=== PATIENT | female | born 1970 ===

== ENCOUNTER 2020-03-14 13:48 | Outpatient (REF) | payer OTHER, SELFPAY ==
--- NOTE | 2020-03-14 13:51 | XR_ITS ---
EXAMINATION: XR KNEE STANDING BILATERAL XR KNEE RIGHT XR KNEE LEFT CLINICAL INFORMATION: Knee pain COMPARISON: No recent comparison for review TECHNIQUE: AP standing view both knees Lateral and sunrise views of right knee Lateral sunrise views of left knee FINDINGS: Right knee: Small joint effusion is present. The sunrise view shows mild lateral patellar subluxation and prominent marginal osteophytes of the patellofemoral compartment. The medial and lateral tibiofemoral joint spaces are maintained. Minimal osteophyte formation of the medial compartment and moderate osteophyte formation of the lateral tibiofemoral compartment. Left knee: Trace amount of fluid is present in the suprapatellar bursa. [place] view shows mild lateral patellar subluxation. There is moderate loss of the lateral patellofemoral joint space with subarticular sclerosis and osteophytosis. Marginal osteophytes are present at medial and lateral tibiofemoral compartments. The medial and lateral joint spaces are maintained. XR/XR knee standing BI IMPRESSION: * Mild lateral patellar subluxation is observed on each sunrise view. * The tricompartmental osteoarthritis of the left knee is worst at the patellofemoral compartment. * There is tricompartmental osteoarthritis of the right knee, as well (mild to moderate in degree at the patellofemoral and lateral tibiofemoral compartments).
--- NOTE | 2020-03-14 13:51 | XR_ITS ---
EXAMINATION: XR KNEE STANDING BILATERAL XR KNEE RIGHT XR KNEE LEFT CLINICAL INFORMATION: Knee pain COMPARISON: No recent comparison for review TECHNIQUE: AP standing view both knees Lateral and sunrise views of right knee Lateral sunrise views of left knee FINDINGS: Right knee: Small joint effusion is present. The sunrise view shows mild lateral patellar subluxation and prominent marginal osteophytes of the patellofemoral compartment. The medial and lateral tibiofemoral joint spaces are maintained. Minimal osteophyte formation of the medial compartment and moderate osteophyte formation of the lateral tibiofemoral compartment. Left knee: Trace amount of fluid is present in the suprapatellar bursa. [place] view shows mild lateral patellar subluxation. There is moderate loss of the lateral patellofemoral joint space with subarticular sclerosis and osteophytosis. Marginal osteophytes are present at medial and lateral tibiofemoral compartments. The medial and lateral joint spaces are maintained. XR/XR knee LT 2V IMPRESSION: * Mild lateral patellar subluxation is observed on each sunrise view. * The tricompartmental osteoarthritis of the left knee is worst at the patellofemoral compartment. * There is tricompartmental osteoarthritis of the right knee, as well (mild to moderate in degree at the patellofemoral and lateral tibiofemoral compartments).
--- NOTE | 2020-03-14 13:51 | XR_ITS ---
EXAMINATION: XR KNEE STANDING BILATERAL XR KNEE RIGHT XR KNEE LEFT CLINICAL INFORMATION: Knee pain COMPARISON: No recent comparison for review TECHNIQUE: AP standing view both knees Lateral and sunrise views of right knee Lateral sunrise views of left knee FINDINGS: Right knee: Small joint effusion is present. The sunrise view shows mild lateral patellar subluxation and prominent marginal osteophytes of the patellofemoral compartment. The medial and lateral tibiofemoral joint spaces are maintained. Minimal osteophyte formation of the medial compartment and moderate osteophyte formation of the lateral tibiofemoral compartment. Left knee: Trace amount of fluid is present in the suprapatellar bursa. [place] view shows mild lateral patellar subluxation. There is moderate loss of the lateral patellofemoral joint space with subarticular sclerosis and osteophytosis. Marginal osteophytes are present at medial and lateral tibiofemoral compartments. The medial and lateral joint spaces are maintained. XR/XR knee RT 2V IMPRESSION: * Mild lateral patellar subluxation is observed on each sunrise view. * The tricompartmental osteoarthritis of the left knee is worst at the patellofemoral compartment. * There is tricompartmental osteoarthritis of the right knee, as well (mild to moderate in degree at the patellofemoral and lateral tibiofemoral compartments).
== END 2020-03-14 13:49 | disposition home or self-care (01) ==
LOC: HO.HOSX 13:48
PROVIDERS: PCP Internal Medicine; Referring Provider Internal Medicine; Visit Provider Orthopaedic Surgery
DX: M25.562 Pain in left knee (principal); M25.561 Pain in right knee
CPT/HCPCS: 73560; 73565; 99202

== ENCOUNTER 2020-05-23 11:07 | Outpatient (REF) | payer OTHER, SELFPAY ==
[2020-05-23 11:31] LABS: MANUAL DIFF FLAG NO
[2020-05-23 11:37] LABS: Basophils Percent Auto 0.4 % (0-2); Eosinophils Absolute Auto 0.2 X10*3/uL (0.0-0.4); Eosinophils Percent Auto 2.2 % (0-4); Hematocrit 33.4 % (37-47); Hemoglobin 9.9 g/dl (12.0-16.0); Imm Gran Abs Auto 0.03 X10*3/uL (0.00-0.03); Imm Gran Pct Auto 0.4 % (0.0-0.4); Lymphocytes Absolute Auto 1.2 X10*3/uL (1.2-4.9); Lymphocytes Percent Auto 16.6 % (20-40); Mean Corpuscular HGB Conc 29.6 g/dl (31.0-35.0); Mean Corpuscular Hemoglobin 25.2 pg (27.0-33.0); Mean Platelet Volume 9.5 fL (9.4-12.3); Monocytes Absolute Auto 0.5 X10*3/uL (0.1-1.2); Monocytes Percent Auto 6.6 % (2-11); Neutrophils Absolute Auto 5.4 X10*3/uL (2.0-8.3); Neutrophils Percent Auto 73.8 % (45-73); Platelet Count 279 X10*3/uL (160-400); Red Blood Count 3.93 X10*6/uL (4.20-5.50); Red Cell Distribution Width 13.6 % (11.0-16.0); White Blood Count 7.3 X10*3/uL (4.8-10.8)
[2020-05-23 12:06] LABS: Alanine Aminotransferase 7 U/L (0-31); Albumin Level 3.5 g/dL (3.5-5.0); Alkaline Phosphatase 87 U/L (39-117); Anion Gap 13 (12-20); Aspartate Amino Transferase 10 U/L (5-31); Bilirubin Total 0.9 mg/dL (0.0-1.0); Blood Urea Nitrogen 15 mg/dL (9-16); C Reactive Protein 8.82 mg/dL (< or = 0.50); Calcium 8.9 mg/dL (8.4-10.2); Carbon Dioxide 31 mmol/L (22-29); Chloride 97 mmol/L (96-108); Estimated Glomerular Filt Rate > 60; Glucose Random 101 mg/dL (60-115); Potassium 4.1 mmol/L (3.3-5.1); Sodium 137 mmol/L (135-145); Total Protein 8.1 g/dL (6.5-8.0)
[2020-05-23 13:15] LABS: Erythrocyte Sedimentation Rate 98 MM/HR (0-20)
== END 2020-05-23 11:08 | disposition home or self-care (01) ==
LOC: HO.LAB 11:07
PROVIDERS: PCP Internal Medicine; Visit Provider Student in an Organized Health Care Education/Training Program
DX: M19.90 Unspecified osteoarthritis, unspecified site (principal)
CPT/HCPCS: 36415; 80053; 85025; 85652; 86140

== ENCOUNTER 2020-06-06 11:31 | Outpatient (REF) | payer OTHER, SELFPAY ==
[2020-06-06 13:13] LABS: MANUAL DIFF FLAG NO
[2020-06-06 13:19] LABS: Basophils Percent Auto 0.4 % (0-2); Eosinophils Absolute Auto 0.2 X10*3/uL (0.0-0.4); Eosinophils Percent Auto 3.1 % (0-4); Hematocrit 33.4 % (37-47); Hemoglobin 9.8 g/dl (12.0-16.0); Imm Gran Abs Auto 0.03 X10*3/uL (0.00-0.03); Imm Gran Pct Auto 0.4 % (0.0-0.4); Lymphocytes Absolute Auto 1.4 X10*3/uL (1.2-4.9); Lymphocytes Percent Auto 19.5 % (20-40); Mean Corpuscular HGB Conc 29.3 g/dl (31.0-35.0); Mean Corpuscular Hemoglobin 24.6 pg (27.0-33.0); Mean Corpuscular Volume 83.9 fL (80-98); Mean Platelet Volume 9.6 fL (9.4-12.3); Monocytes Absolute Auto 0.5 X10*3/uL (0.1-1.2); Monocytes Percent Auto 6.7 % (2-11); Neutrophils Percent Auto 69.9 % (45-73); Platelet Count 315 X10*3/uL (160-400); Red Blood Count 3.98 X10*6/uL (4.20-5.50); Red Cell Distribution Width 13.7 % (11.0-16.0); White Blood Count 7.2 X10*3/uL (4.8-10.8)
[2020-06-06 13:43] LABS: Alanine Aminotransferase 6 U/L (0-31); Albumin Level 3.6 g/dL (3.5-5.0); Alkaline Phosphatase 86 U/L (39-117); Anion Gap 13 (12-20); Aspartate Amino Transferase 10 U/L (5-31); Bilirubin Total 1.1 mg/dL (0.0-1.0); Blood Urea Nitrogen 15 mg/dL (9-16); Calcium 8.9 mg/dL (8.4-10.2); Carbon Dioxide 31 mmol/L (22-29); Chloride 99 mmol/L (96-108); Cholesterol 170 mg/dL; Estimated Glomerular Filt Rate > 60; Glucose Random 108 mg/dL (60-115); HDL Cholesterol 39 mg/dL; LDL Cholesterol Calculated 111 mg/dl; Potassium 4.1 mmol/L (3.3-5.1); Sodium 139 mmol/L (135-145); Total Protein 8.2 g/dL (6.5-8.0); Triglycerides 102 mg/dL
[2020-06-06 14:13] LABS: Reflex LDLD? No
[2020-06-06 14:20] LABS: Erythrocyte Sedimentation Rate 96 MM/HR (0-20)
== END 2020-06-06 11:32 | disposition home or self-care (01) ==
LOC: HO.LAB 11:31
PROVIDERS: PCP Internal Medicine; Visit Provider Student in an Organized Health Care Education/Training Program
DX: M19.90 Unspecified osteoarthritis, unspecified site (principal); M17.0 Bilateral primary osteoarthritis of knee; Z79.899 Other long term (current) drug therapy
CPT/HCPCS: 36415; 80053; 80061; 85025; 85652; 86140; 99212

== ENCOUNTER → 2020-06-27 13:40 | Outpatient (BNVA) | payer OTHER, SELFPAY | PROVIDERS: PCP Internal Medicine; Visit Provider Orthopaedic Surgery | DX: M19.90 Unspecified osteoarthritis, unspecified site (principal); Z79.899 Other long term (current) drug therapy | CPT/HCPCS: 99212 ==

== ENCOUNTER → 2020-08-05 13:40 | Outpatient (BNVA) | payer OTHER, SELFPAY | PROVIDERS: Visit Provider Physician Assistant | DX: M19.90 Unspecified osteoarthritis, unspecified site (principal); M17.0 Bilateral primary osteoarthritis of knee | CPT/HCPCS: 99212 ==

== ENCOUNTER 2020-08-07 07:40 | Day surgery (SDC) | payer OTHER, SELFPAY ==
--- NOTE | 2020-08-06 08:52 | P.CONAN_ITS ---
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) Inflammatory arthritis (Acute) Morbid obesity (Acute) Osteoarthritis of knees, bilateral (Acute) Past Medical History Medical History Abdominal hernia Arthritis of both knees Asthma Blind left eye Chronic pain Degenerative disc disease Depression Diabetes mellitus Fibromyalgia Glaucoma Headache disorder History of anemia History of hypothyroidism Inflammatory arthritis Morbid obesity HUSSEIN (obstructive sleep apnea) Family History Family History Father CAD (coronary artery disease) Mother Cancer of pancreas Obesity Brother CAD (coronary artery disease) Obesity Surgical History Surgical History History of section History of hernia surgery Social History Social History Alcohol intake: never Smoking Status: Never smoker Use of substances other than those prescribed or required for medical reasons: No Are you DNR?: No Advance Directives: No Advance Directives Information Provided: Yes Current occupational status: unemployed Current occupation: right handed Meds Allergies Allergy/AdvReac Type Severity Reaction Status Date / Time No Known Allergies Allergy Verified 08/07/20 07:59 [No Known Allergies*] Home Medications Medication Instructions Recorded Confirmed Last Taken Type albuterol sulfate 2 mg/5 mL oral 2 mg PO TID 03/14/20 03/15/20 Unknown History syrup aspirin 81 mg tablet,delayed 81 mg PO DAILY 03/14/20 03/15/20 08/06/20 History release atorvastatin 40 mg tablet 40 mg PO DAILY 03/14/20 03/15/20 Unknown History brimonidine 0.2 % eye drops 1 drp OPHTHALMIC (EYE) TID 03/14/20 03/15/20 Unknown History budesonide-formoterol HFA 160 2 puff INHALATION BID 03/14/20 03/15/20 Unknown History mcg-4.5 mcg/actuation aerosol inhaler cholecalciferol (vitamin D3) 50 50 mcg PO DAILY 03/14/20 03/15/20 Unknown History mcg (2,000 unit) capsule folic acid 1 mg tablet 1 mg PO DAILY 03/14/20 03/15/20 Unknown History gabapentin 800 mg tablet 800 mg PO TID 03/14/20 03/15/20 Unknown History hydrocortisone 1 % topical cream 1 appl TOPICAL TID PRN 03/14/20 03/15/20 Unknown History insulin glargine 100 unit/mL 10 unit SUBCUT BID 03/14/20 03/15/20 Unknown History subcutaneous solution liraglutide 0.6 mg/0.1 mL (18 mg/3 1.2 mg SUBCUT DAILY 03/14/20 03/15/20 Unknown History mL) subcutaneous pen injector metformin 1,000 mg tablet 1,000 mg PO BID 03/14/20 03/15/20 Unknown History montelukast 10 mg tablet 10 mg PO DAILY 03/14/20 03/15/20 Unknown History polyethylene glycol 3350 17 17 g PO DAILY 03/14/20 03/15/20 Unknown History gram/dose oral powder tizanidine 4 mg capsule 4 mg PO BID PRN 03/14/20 03/15/20 Unknown History oxycodone 1 tab PO TID PRN 08/07/20 08/07/20 08/07/20 History 0600 Exam Exam Date and Time: August 06, 2020 0852 Pertinent Lab Results Pertinent Lab Results: Laboratory Tests 06/06/20 06/06/20 12:43 12:43 WBC 7.2 Hgb 9.8 L Hct 33.4 L Plt Count 315 Sodium 139 Potassium 4.1 Chloride 99 Carbon Dioxide 31 H BUN 15 Creatinine 0.72 Assessment and Plan Assessment Anesthesia Assessment: Chart Reviewed Documented by User: Pascale Pak 08/07/20 09:03 [facility] Past Medical History Medical History Abdominal hernia Arthritis of both knees Asthma Blind left eye Chronic pain Degenerative disc disease Depression Diabetes mellitus Fibromyalgia Glaucoma Headache disorder History of anemia History of hypothyroidism Inflammatory arthritis Morbid obesity HUSSEIN (obstructive sleep apnea) Family History Family History Father CAD (coronary artery disease) Mother Cancer of pancreas Obesity Brother CAD (coronary artery disease) Obesity Surgical History Surgical History History of section History of hernia surgery Social History Social History Alcohol intake: never Smoking Status: Never smoker Use of substances other than those prescribed or required for medical reasons: No Are you DNR?: No Advance Directives: No Advance Directives Information Provided: Yes Current occupational status: unemployed Current occupation: right handed Meds Allergies Allergy/AdvReac Type Severity Reaction Status Date / Time No Known Allergies Allergy Verified 08/07/20 07:59 [No Known Allergies*] Home Medications Medication Instructions Recorded Confirmed Last Taken Type albuterol sulfate 2 mg/5 mL oral 2 mg PO TID 03/14/20 03/15/20 Unknown History syrup aspirin 81 mg tablet,delayed 81 mg PO DAILY 03/14/20 03/15/20 08/06/20 History release atorvastatin 40 mg tablet 40 mg PO DAILY 03/14/20 03/15/20 Unknown History brimonidine 0.2 % eye drops 1 drp OPHTHALMIC (EYE) TID 03/14/20 03/15/20 Unknown History budesonide-formoterol HFA 160 2 puff INHALATION BID 03/14/20 03/15/20 Unknown History mcg-4.5 mcg/actuation aerosol inhaler cholecalciferol (vitamin D3) 50 50 mcg PO DAILY 03/14/20 03/15/20 Unknown History mcg (2,000 unit) capsule folic acid 1 mg tablet 1 mg PO DAILY 03/14/20 03/15/20 Unknown History gabapentin 800 mg tablet 800 mg PO TID 03/14/20 03/15/20 Unknown History hydrocortisone 1 % topical cream 1 appl TOPICAL TID PRN 03/14/20 03/15/20 Unknown History insulin glargine 100 unit/mL 10 unit SUBCUT BID 03/14/20 03/15/20 Unknown History subcutaneous solution liraglutide 0.6 mg/0.1 mL (18 mg/3 1.2 mg SUBCUT DAILY 03/14/20 03/15/20 Unknown History mL) subcutaneous pen injector metformin 1,000 mg tablet 1,000 mg PO BID 03/14/20 03/15/20 Unknown History montelukast 10 mg tablet 10 mg PO DAILY 03/14/20 03/15/20 Unknown History polyethylene glycol 3350 17 17 g PO DAILY 03/14/20 03/15/20 Unknown History gram/dose oral powder tizanidine 4 mg capsule 4 mg PO BID PRN 03/14/20 03/15/20 Unknown History oxycodone 1 tab PO TID PRN 08/07/20 08/07/20 08/07/20 History 0600 Exam Airway Mallampati Class: II TM Dist: >3cm Neck ROM: Full Loose/Missing/Broken Teeth: No Heart: RRR Lungs: CTA Assessment and Plan Assessment Anesthesia Assessment: Anesthesia Plan Discussed and Chart Reviewed Final Anesthetic Review NPO: Yes ASA Class: III Final Preanesthetic Review: Meds/Allgs Chart Reviewed, Consent Obtained/Reviewed and Anes Risks/Benef Reviewed Patient Risk: Intermediate Procedure Risk: Low Anesthetic Plan Anesthetic Plan: GA Disposition: Standard PACU
[2020-08-07] VITALS (9 sets, daily range): BP systolic 126–154; BP diastolic 70–79; PULSE 72–94; RESP 16–20; TEMP 36.2–36.8; O2SAT 96–99; BMI 47.4
[2020-08-07 07:57] LABS: Glucose, Whole Blood 80 mg/dL (60-115)
[2020-08-07] MEDS: Lactated Ringers 1,000 ML 100 ML IVCONT (08:36)
--- NOTE | 2020-08-07 08:41 | MHC.SHP ---
Pre-Procedural Eval Section A The patient is an INPATIENT: No Changes since office visit: Yes Patient answered all questions; No Cold of Flu in the past 2 weeks, No New Medical Problems and No Changes in Medication The History & Physical has been completed within 30 days and I have reviewed it.: Yes Section B Chief Complaint: osteoarthritis Allergies: Allergies Allergy/AdvReac Type Severity Reaction Status Date / Time No Known Allergies Allergy Verified 08/07/20 07:59 [No Known Allergies*] Plan I have reviewed the history and physical and performed a pertinent physical examination on my patient. No changes have occurred unless specified.
--- NOTE | 2020-08-07 10:20 | PM.OP ---
Brief Operative Note Date of Service: 08/07/20 Pre-op diagnosis: right knee pain Post-op diagnosis: same Procedure: right knee synovial biopsy Surgeon: Walter Mcdonald MD Anesthesia: GETA and local Was an Import Export Manager used for this Procedure?: No Estimated blood loss (mL): 5 Tourniquet time (min): 25 IV fluids (mL): 500 Pathology: other Condition: stable Disposition: PACU
--- NOTE | 2020-08-07 10:23 | W.PM.OPN ---
Operative Note Operative Note Date of Service: 08/07/20 Narrative: Pre-op diagnosis: right knee pain Post-op diagnosis: same Procedure: right knee synovial biopsy Surgeon: Walter Mcdonald MD Anesthesia: GETA and local Was an Senior Loan Officer used for this Procedure?: No Estimated blood loss (mL): 5 Tourniquet time (min): 25 IV fluids (mL): 500 Pathology: other Condition: stable Disposition: PACU Procedure in detail:Patient was brought to the operating room and placed supine on the surgical table. She was prepped and draped in standard sterile fashion and a time out was called to identify proper site, proper procedure and IV antibiotics per weight were administered. I began by aspirating synovial fluid via a lateral approach. This produced about 6-8 ml serosanguinous fluid. I then placed my blunt trochar into the PF compartment and insufflated the knee with saline. There was abundant scar tissue in the supra-patellar compartment. I established a medial parapatellar portal and used a shave to remove the tissue obstyurcting my view. I then biopsied the synovium with a biter. There was no synovitis appreciable. I then examined the and medial compartment. She has G 4 changes of the lateral compartment. Otherwise the medial and anterior compartment cartilage surfaces were intact and without damage. Synovium was sent to pathology and synovial fluid sent for culture and cell count. All instrumentation was removed and patient was placed in sterile dressing after the wouns were closed with skin glue. 25 ml of 1/4% marcaine with epi was injected around the portals.
[2020-08-07 10:31] LABS: MN% 19.7 %; PMN% 80.3 %; RBC Synovial Fluid 0.344 X10*6/uL; WBC Synovial Fluid 5.332 X10*3/uL
[2020-08-07] MEDS: Acetaminophen 325 MG TABLET 650 MG PO (10:38)
[2020-08-07] MEDS: oxyCODONE HCl Immed Release 5 MG TABLET 10 MG PO (10:39)
[2020-08-07 11:28] LABS: BF Shift QC OK YES; Eosinophils Synovial Fluid 2 %; Lymphocytes Synovial Fluid 10 %; Monocytes Synovial Fluid 9 %; Neutrophils Synovial Fluid 79 %
== END 2020-08-07 12:25 | disposition home or self-care (01) ==
PROVIDERS: PCP Internal Medicine; Visit Provider Orthopaedic Surgery
PROC: (CPT 29870; principal; 2020-08-07 09:20)
DX: M17.0 Bilateral primary osteoarthritis of knee (principal); M25.561 Pain in right knee; M65.861 Other synovitis and tenosynovitis, right lower leg; M79.7 Fibromyalgia; G89.29 Other chronic pain; J45.909 Unspecified asthma, uncomplicated; E11.9 Type 2 diabetes mellitus without complications; Z79.4 Long term (current) use of insulin; E66.01 Morbid (severe) obesity due to excess calories; Z68.43 Body mass index [BMI] 50.0-59.9, adult; Z79.899 Other long term (current) drug therapy; Z79.82 Long term (current) use of aspirin
CPT/HCPCS: 29870; 82947; 87071; 87073; 87205; 88304; 88305; 89051; J0171; J1100; J2250; J2405; J3010

== ENCOUNTER → 2020-08-23 12:58 | Outpatient (BNVA) | payer OTHER, SELFPAY | PROVIDERS: PCP Internal Medicine; Visit Provider Physician Assistant | DX: Z47.89 Encounter for other orthopedic aftercare (principal); Z98.890 Other specified postprocedural states | CPT/HCPCS: 99212 ==

== ENCOUNTER 2020-09-03 13:13 | Outpatient (REF) | payer OTHER, SELFPAY ==
[2020-09-03 14:22] LABS: MANUAL DIFF FLAG NO
[2020-09-03 14:28] LABS: Basophils Percent Auto 0.4 % (0-2); Eosinophils Absolute Auto 0.2 X10*3/uL (0.0-0.4); Eosinophils Percent Auto 2.2 % (0-4); Hematocrit 34.8 % (37-47); Hemoglobin 10.1 g/dl (12.0-16.0); Imm Gran Abs Auto 0.03 X10*3/uL (0.00-0.03); Imm Gran Pct Auto 0.4 % (0.0-0.4); Lymphocytes Absolute Auto 1.5 X10*3/uL (1.2-4.9); Lymphocytes Percent Auto 20.3 % (20-40); Mean Corpuscular Hemoglobin 23.7 pg (27.0-33.0); Mean Corpuscular Volume 81.5 fL (80-98); Mean Platelet Volume 9.6 fL (9.4-12.3); Monocytes Absolute Auto 0.5 X10*3/uL (0.1-1.2); Monocytes Percent Auto 7.2 % (2-11); Neutrophils Absolute Auto 5.1 X10*3/uL (2.0-8.3); Neutrophils Percent Auto 69.5 % (45-73); Platelet Count 376 X10*3/uL (160-400); Red Blood Count 4.27 X10*6/uL (4.20-5.50); Red Cell Distribution Width 14.6 % (11.0-16.0); White Blood Count 7.4 X10*3/uL (4.8-10.8)
[2020-09-03 14:53] LABS: Alanine Aminotransferase 7 U/L (0-31); Albumin Level 3.6 g/dL (3.5-5.0); Alkaline Phosphatase 91 U/L (39-117); Anion Gap 15 (12-20); Aspartate Amino Transferase 11 U/L (5-31); Bilirubin Total 1.4 mg/dL (0.0-1.0); Blood Urea Nitrogen 19 mg/dL (9-16); C Reactive Protein 11.96 mg/dL (< or = 0.50); Carbon Dioxide 33 mmol/L (22-29); Chloride 94 mmol/L (96-108); Estimated Glomerular Filt Rate > 60; Glucose Random 134 mg/dL (60-115); Potassium 4.3 mmol/L (3.3-5.1); Sodium 138 mmol/L (135-145); Total Protein 8.8 g/dL (6.5-8.0)
[2020-09-03 15:16] LABS: Erythrocyte Sedimentation Rate 89 MM/HR (0-20)
== END 2020-09-03 13:14 | disposition home or self-care (01) ==
LOC: HO.LAB 13:13
PROVIDERS: PCP Internal Medicine; Visit Provider Student in an Organized Health Care Education/Training Program
DX: M19.90 Unspecified osteoarthritis, unspecified site (principal)
CPT/HCPCS: 36415; 80053; 85025; 85652; 86140

== ENCOUNTER → 2020-09-11 10:31 | Outpatient (BNVA) | payer OTHER, SELFPAY | PROVIDERS: Visit Provider Student in an Organized Health Care Education/Training Program | DX: M06.00 Rheumatoid arthritis without rheumatoid factor, unspecified site (principal); M17.0 Bilateral primary osteoarthritis of knee; Z79.899 Other long term (current) drug therapy | CPT/HCPCS: 99212 ==

== ENCOUNTER → 2020-11-05 12:35 | Outpatient (BNVA) | payer OTHER, SELFPAY | PROVIDERS: PCP Internal Medicine; Visit Provider Student in an Organized Health Care Education/Training Program | DX: M06.00 Rheumatoid arthritis without rheumatoid factor, unspecified site (principal) ==

== ENCOUNTER 2020-11-27 10:54 | Outpatient (REF) | payer OTHER, SELFPAY ==
[2020-11-27 11:29] LABS: MANUAL DIFF FLAG NO
[2020-11-27 11:38] LABS: Basophils Percent Auto 0.6 % (0-2); Eosinophils Absolute Auto 0.1 X10*3/uL (0.0-0.4); Eosinophils Percent Auto 2.3 % (0-4); Hematocrit 38.6 % (37-47); Hemoglobin 11.7 g/dl (12.0-16.0); Imm Gran Abs Auto 0.01 X10*3/uL (0.00-0.03); Imm Gran Pct Auto 0.2 % (0.0-0.4); Lymphocytes Percent Auto 21.8 % (20-40); Mean Corpuscular HGB Conc 30.3 g/dl (31.0-35.0); Mean Corpuscular Volume 88.9 fL (80-98); Mean Platelet Volume 9.5 fL (9.4-12.3); Monocytes Absolute Auto 0.4 X10*3/uL (0.1-1.2); Monocytes Percent Auto 7.9 % (2-11); Neutrophils Absolute Auto 3.2 X10*3/uL (2.0-8.3); Neutrophils Percent Auto 67.2 % (45-73); Platelet Count 180 X10*3/uL (160-400); Red Blood Count 4.34 X10*6/uL (4.20-5.50); Red Cell Distribution Width 15.9 % (11.0-16.0); White Blood Count 4.8 X10*3/uL (4.8-10.8)
[2020-11-27 12:28] LABS: Alanine Aminotransferase 16 U/L (0-31); Albumin Level 3.9 g/dL (3.5-5.0); Alkaline Phosphatase 64 U/L (39-117); Anion Gap 12 (12-20); Aspartate Amino Transferase 17 U/L (5-31); Bilirubin Total 1.6 mg/dL (0.0-1.0); Blood Urea Nitrogen 17 mg/dL (9-16); C Reactive Protein 0.12 mg/dL (< or = 0.50); Calcium 9.1 mg/dL (8.4-10.2); Carbon Dioxide 28 mmol/L (22-29); Chloride 105 mmol/L (96-108); Cholesterol 207 mg/dL; Estimated Glomerular Filt Rate > 60; Glucose Random 134 mg/dL (60-115); HDL Cholesterol 87 mg/dL; LDL Cholesterol Calculated 106 mg/dl; Potassium 3.9 mmol/L (3.3-5.1); Sodium 141 mmol/L (135-145); Total Protein 7.1 g/dL (6.5-8.0); Triglycerides 71 mg/dL
[2020-11-27 12:31] LABS: Erythrocyte Sedimentation Rate 7 MM/HR (0-20)
[2020-11-27 13:22] LABS: Reflex LDLD? No
== END 2020-11-27 10:55 | disposition home or self-care (01) ==
LOC: HO.LAB 10:54
PROVIDERS: PCP Internal Medicine; Visit Provider Student in an Organized Health Care Education/Training Program
DX: M06.00 Rheumatoid arthritis without rheumatoid factor, unspecified site (principal)
CPT/HCPCS: 36415; 80053; 80061; 85025; 85652; 86140

== ENCOUNTER → 2020-12-03 08:26 | Outpatient (BNVA) | payer OTHER, SELFPAY | PROVIDERS: PCP Internal Medicine; Visit Provider Student in an Organized Health Care Education/Training Program ==

== ENCOUNTER 2021-01-17 11:07 | Outpatient (REF) | payer OTHER, SELFPAY ==
[2021-01-17 11:23] LABS: MANUAL DIFF FLAG NO
[2021-01-17 11:50] LABS: Basophils Percent Auto 0.5 % (0-2); Eosinophils Absolute Auto 0.1 X10*3/uL (0.0-0.4); Eosinophils Percent Auto 2.2 % (0-4); Hematocrit 37.9 % (37-47); Hemoglobin 11.8 g/dl (12.0-16.0); Imm Gran Abs Auto 0.01 X10*3/uL (0.00-0.03); Imm Gran Pct Auto 0.2 % (0.0-0.4); Lymphocytes Absolute Auto 1.2 X10*3/uL (1.2-4.9); Lymphocytes Percent Auto 29.9 % (20-40); Mean Corpuscular HGB Conc 31.1 g/dl (31.0-35.0); Mean Corpuscular Hemoglobin 27.8 pg (27.0-33.0); Mean Corpuscular Volume 89.4 fL (80-98); Mean Platelet Volume 9.8 fL (9.4-12.3); Monocytes Absolute Auto 0.4 X10*3/uL (0.1-1.2); Neutrophils Absolute Auto 2.4 X10*3/uL (2.0-8.3); Neutrophils Percent Auto 58.2 % (45-73); Platelet Count 158 X10*3/uL (160-400); Red Blood Count 4.24 X10*6/uL (4.20-5.50); Red Cell Distribution Width 12.7 % (11.0-16.0); White Blood Count 4.1 X10*3/uL (4.8-10.8)
[2021-01-17 12:23] LABS: Alanine Aminotransferase 19 U/L (0-31); Albumin Level 4.1 g/dL (3.5-5.0); Alkaline Phosphatase 67 U/L (39-117); Anion Gap 11 (12-20); Aspartate Amino Transferase 15 U/L (5-31); Bilirubin Total 1.7 mg/dL (0.0-1.0); Blood Urea Nitrogen 17 mg/dL (9-16); C Reactive Protein 0.08 mg/dL (< or = 0.50); Calcium 9.2 mg/dL (8.4-10.2); Carbon Dioxide 29 mmol/L (22-29); Chloride 105 mmol/L (96-108); Cholesterol 205 mg/dL; Estimated Glomerular Filt Rate > 60; Glucose Random 106 mg/dL (60-115); HDL Cholesterol 72 mg/dL; LDL Cholesterol Calculated 118 mg/dl; Potassium 4.4 mmol/L (3.3-5.1); Sodium 141 mmol/L (135-145); Total Protein 7.2 g/dL (6.5-8.0); Triglycerides 77 mg/dL
[2021-01-17 12:36] LABS: Erythrocyte Sedimentation Rate 5 MM/HR (0-20)
[2021-01-17 12:48] LABS: Reflex LDLD? No
== END 2021-01-17 11:08 | disposition home or self-care (01) ==
LOC: HO.LAB 11:07
PROVIDERS: PCP Internal Medicine; Visit Provider Student in an Organized Health Care Education/Training Program
DX: M06.00 Rheumatoid arthritis without rheumatoid factor, unspecified site (principal)
CPT/HCPCS: 36415; 80053; 80061; 85025; 85652; 86140

== ENCOUNTER → 2021-02-21 12:49 | Outpatient (BNVA) | payer OTHER, SELFPAY | PROVIDERS: PCP Internal Medicine; Visit Provider Nurse Practitioner Family | DX: M06.00 Rheumatoid arthritis without rheumatoid factor, unspecified site (principal); M17.0 Bilateral primary osteoarthritis of knee; Z79.899 Other long term (current) drug therapy | CPT/HCPCS: 99212 ==

== ENCOUNTER 2021-06-20 08:31 | Outpatient (REF) | payer OTHER, SELFPAY | END 2021-06-20 08:32 | disposition home or self-care (01) | LOC: HO.LAB 08:31 | PROVIDERS: PCP Internal Medicine; Visit Provider Nurse Practitioner Family | DX: M06.00 Rheumatoid arthritis without rheumatoid factor, unspecified site (principal); M17.0 Bilateral primary osteoarthritis of knee; Z79.4 Long term (current) use of insulin; Z79.899 Other long term (current) drug therapy | CPT/HCPCS: 36415; 80053; 85025; 86140; 99212 ==

== ENCOUNTER 2021-06-24 08:20 | Outpatient (REF) | payer OTHER, SELFPAY ==
[2021-06-24 08:31] LABS: MANUAL DIFF FLAG NO
[2021-06-24 08:51] LABS: Basophils Percent Auto 0.5 % (0-2); Eosinophils Absolute Auto 0.1 X10*3/uL (0.0-0.4); Eosinophils Percent Auto 3.1 % (0-4); Hematocrit 38.9 % (37.0-47.0); Imm Gran Abs Auto 0.02 X10*3/uL (0.00-0.03); Imm Gran Pct Auto 0.5 % (0.0-0.4); Lymphocytes Absolute Auto 1.4 X10*3/uL (1.2-4.9); Lymphocytes Percent Auto 32.9 % (20-40); Mean Corpuscular HGB Conc 30.8 g/dl (31.0-35.0); Mean Corpuscular Hemoglobin 28.6 pg (27.0-33.0); Mean Corpuscular Volume 92.6 fL (80.0-98.0); Mean Platelet Volume 9.7 fL (9.4-12.3); Monocytes Absolute Auto 0.4 X10*3/uL (0.1-1.2); Monocytes Percent Auto 8.7 % (2-11); Neutrophils Absolute Auto 2.3 x10*3/uL (2.0-8.3); Neutrophils Percent Auto 54.3 % (45-73); Platelet Count 129 X10*3/uL (160-400); Red Cell Distribution Width 12.3 % (11.0-16.0); White Blood Count 4.3 X10*3/uL (4.8-10.8)
[2021-06-24 09:24] LABS: Alanine Aminotransferase 50 U/L (0-31); Albumin Level 3.9 g/dL (3.5-5.0); Alkaline Phosphatase 74 U/L (39-117); Anion Gap 13 (12-20); Aspartate Amino Transferase 35 U/L (5-31); Bilirubin Total 2.2 mg/dL (0.0-1.0); Blood Urea Nitrogen 13 mg/dL (9-16); Calcium 9.1 mg/dL (8.4-10.2); Carbon Dioxide 27 mmol/L (22-29); Chloride 104 mmol/L (96-108); Estimated Glomerular Filt Rate > 60; Glucose Random 265 mg/dL (60-115); Sodium 140 mmol/L (135-145); Total Protein 6.9 g/dL (6.5-8.0)
== END 2021-06-24 08:21 | disposition home or self-care (01) ==
LOC: HO.LAB 08:20
PROVIDERS: Visit Provider Nurse Practitioner Family
DX: M06.00 Rheumatoid arthritis without rheumatoid factor, unspecified site (principal); M19.90 Unspecified osteoarthritis, unspecified site
CPT/HCPCS: 36415; 80053; 85025; 86140

== ENCOUNTER 2021-08-25 09:37 | Outpatient (REF) | payer MEDICARE, MEDICAID, SELFPAY ==
[2021-08-25 10:24] LABS: MANUAL DIFF FLAG NO
[2021-08-25 10:58] LABS: Basophils Percent Auto 0.3 % (0-2); Eosinophils Absolute Auto 0.1 X10*3/uL (0.0-0.4); Eosinophils Percent Auto 1.3 % (0-4); Hematocrit 36.4 % (37.0-47.0); Hemoglobin 11.4 g/dl (12.0-16.0); Imm Gran Abs Auto 0.03 X10*3/uL (0.00-0.03); Imm Gran Pct Auto 0.4 % (0.0-0.4); Lymphocytes Percent Auto 13.5 % (20-40); Mean Corpuscular HGB Conc 31.3 g/dl (31.0-35.0); Mean Corpuscular Hemoglobin 28.6 pg (27.0-33.0); Mean Corpuscular Volume 91.5 fL (80.0-98.0); Mean Platelet Volume 9.6 fL (9.4-12.3); Monocytes Absolute Auto 0.5 X10*3/uL (0.1-1.2); Monocytes Percent Auto 7.2 % (2-11); Neutrophils Absolute Auto 5.8 x10*3/uL (2.0-8.3); Neutrophils Percent Auto 77.3 % (45-73); Platelet Count 196 X10*3/uL (160-400); Red Blood Count 3.98 X10*6/uL (4.20-5.50); Red Cell Distribution Width 12.2 % (11.0-16.0); White Blood Count 7.5 X10*3/uL (4.8-10.8)
[2021-08-25 11:42] LABS: Erythrocyte Sedimentation Rate 36 MM/HR (0-20)
[2021-08-25 11:57] LABS: Alanine Aminotransferase 38 U/L (0-31); Albumin Level 3.7 g/dL (3.5-5.0); Alkaline Phosphatase 84 U/L (39-117); Anion Gap 13 (12-20); Aspartate Amino Transferase 37 U/L (5-31); Bilirubin Total 1.4 mg/dL (0.0-1.0); Blood Urea Nitrogen 13 mg/dL (9-16); C Reactive Protein 1.35 mg/dL (< or = 0.50); Calcium 8.7 mg/dL (8.4-10.2); Carbon Dioxide 27 mmol/L (22-29); Chloride 103 mmol/L (96-108); Estimated Glomerular Filt Rate > 60; Glucose Random 203 mg/dL (60-115); Potassium 3.5 mmol/L (3.3-5.1); Sodium 139 mmol/L (135-145); Total Protein 7.2 g/dL (6.5-8.0)
== END 2021-08-25 09:38 | disposition home or self-care (01) ==
LOC: HO.LAB 09:37
PROVIDERS: PCP Internal Medicine; Visit Provider Nurse Practitioner Family
DX: M06.00 Rheumatoid arthritis without rheumatoid factor, unspecified site (principal)
CPT/HCPCS: 36415; 80053; 85025; 85652; 86140

== ENCOUNTER 2021-10-28 10:05 | Outpatient (REF) | payer MEDICARE, MEDICAID, SELFPAY ==
[2021-10-28 11:05] LABS: Alanine Aminotransferase 27 U/L (0-31); Aspartate Amino Transferase 37 U/L (5-31)
== END 2021-10-28 10:06 | disposition home or self-care (01) ==
LOC: HO.10HDL 10:05
PROVIDERS: Visit Provider Nurse Practitioner Family
DX: M06.00 Rheumatoid arthritis without rheumatoid factor, unspecified site (principal); M17.0 Bilateral primary osteoarthritis of knee; E66.01 Morbid (severe) obesity due to excess calories; E11.40 Type 2 diabetes mellitus with diabetic neuropathy, unspecified; Z79.899 Other long term (current) drug therapy
CPT/HCPCS: 36415; 84450; 84460; 99212

== ENCOUNTER → 2022-02-17 08:51 | Outpatient (BNVA) | payer MEDICARE, MEDICAID, SELFPAY | PROVIDERS: PCP Internal Medicine; Visit Provider Internal Medicine Rheumatology | DX: M06.00 Rheumatoid arthritis without rheumatoid factor, unspecified site (principal); M17.0 Bilateral primary osteoarthritis of knee; R53.1 Weakness; E11.40 Type 2 diabetes mellitus with diabetic neuropathy, unspecified; R74.01 Elevation of levels of liver transaminase levels; Z79.899 Other long term (current) drug therapy | CPT/HCPCS: 99212 ==

== ENCOUNTER → 2022-06-22 09:18 | Outpatient (BNVA) | payer MEDICARE, MEDICAID, SELFPAY | PROVIDERS: PCP Internal Medicine; Visit Provider Internal Medicine Rheumatology | DX: M06.00 Rheumatoid arthritis without rheumatoid factor, unspecified site (principal); M17.0 Bilateral primary osteoarthritis of knee; R74.01 Elevation of levels of liver transaminase levels; E11.40 Type 2 diabetes mellitus with diabetic neuropathy, unspecified; Z79.899 Other long term (current) drug therapy | CPT/HCPCS: 99212 ==

== ENCOUNTER 2022-06-29 07:11 | Outpatient (REF) | payer MEDICARE, MEDICAID, SELFPAY ==
[2022-06-29 07:26] LABS: MANUAL DIFF FLAG NO
[2022-06-29 08:02] LABS: Basophils Percent Auto 0.4 % (0-2); Eosinophils Absolute Auto 0.1 X10*3/uL (0.0-0.4); Eosinophils Percent Auto 1.3 % (0-4); Hematocrit 36.3 % (37.0-47.0); Hemoglobin 11.1 g/dl (12.0-16.0); Imm Gran Abs Auto 0.02 X10*3/uL (0.00-0.03); Imm Gran Pct Auto 0.3 % (0.0-0.4); Lymphocytes Absolute Auto 1.4 X10*3/uL (1.2-4.9); Lymphocytes Percent Auto 17.8 % (20-40); Mean Corpuscular HGB Conc 30.6 g/dl (31.0-35.0); Mean Corpuscular Hemoglobin 27.8 pg (27.0-33.0); Mean Platelet Volume 9.5 fL (9.4-12.3); Monocytes Absolute Auto 0.4 X10*3/uL (0.1-1.2); Monocytes Percent Auto 5.4 % (2-11); Neutrophils Absolute Auto 5.9 x10*3/uL (2.0-8.3); Neutrophils Percent Auto 74.8 % (45-73); Platelet Count 231 X10*3/uL (160-400); Red Blood Count 3.99 X10*6/uL (4.20-5.50); Red Cell Distribution Width 12.3 % (11.0-16.0); White Blood Count 7.9 X10*3/uL (4.8-10.8)
[2022-06-29 08:29] LABS: Alanine Aminotransferase 21 U/L (0-31); Albumin Level 3.5 g/dL (3.5-5.0); Alkaline Phosphatase 96 U/L (39-117); Anion Gap 14 (12-20); Aspartate Amino Transferase 25 U/L (5-31); Bilirubin Total 1.2 mg/dL (0.0-1.0); Blood Urea Nitrogen 19 mg/dL (9-16); C Reactive Protein 4.04 mg/dL (< or = 0.50); Carbon Dioxide 28 mmol/L (22-29); Chloride 100 mmol/L (96-108); Estimated Glomerular Filt Rate > 60; Glucose Random 124 mg/dL (60-115); Sodium 138 mmol/L (135-145); Total Protein 7.9 g/dL (6.5-8.0)
[2022-06-29 08:42] LABS: Erythrocyte Sedimentation Rate 83 MM/HR (0-20)
[2022-07-02 12:49] LABS: TS Negative Control Passed; TS Panel A 0; TS Panel B 0; TS Positive Control Passed; TSpotTB Negative (Negative)
== END 2022-06-29 07:12 | disposition home or self-care (01) ==
LOC: HO.LAB 07:11
PROVIDERS: PCP Internal Medicine; Visit Provider Internal Medicine Rheumatology
DX: M06.00 Rheumatoid arthritis without rheumatoid factor, unspecified site (principal); Z79.899 Other long term (current) drug therapy
CPT/HCPCS: 36415; 80053; 85025; 85652; 86140; 86481

== ENCOUNTER 2022-11-24 11:40 | Outpatient (AMB) | payer MEDICARE, MEDICAID, SELFPAY ==
--- NOTE | 2022-11-24 11:48 | A.OFFVIS_ITS ---
Intake Vital Signs 11/24/22 11:51 Height 5 ft 5 in Weight 311 lb BMI 51.7 BP 132/80 Blood Pressure Location Rt brachial Position Sitting Pulse 74 Pulse Source Pulse Oximeter Temp 97.2 F Temp Source Skin Pulse Oximetry (%) 96 Oxygen Delivery Method Room Air Comment wt per patient, unable to stand for wt Intake Visit Reasons: RA Intake Note: Here for RA follow up. Director Of Curriculum And Instruction Required: No Accompanied by: Self / Same As Patient Allergies No Known Allergies [No Known Allergies*] Allergy (Verified 11/24/22 11:50) HPI HPI Comments History of Present Illness Details The patient returns today for evaluation of her rheumatoid arthritis and osteoarthritis. She remains on methotrexate at 15 mg weekly, folic acid 1 mg daily, prednisone 7.5 b.i.d. and Orencia 125 mg weekly. She had been started on Orencia about 3 months ago. She does not feel like it made any difference as compared with the Actemra. There stil is rather diffuse pain in the neck, shoulders, hands, forearms, knees, and feet. I received a call from her primary doctor few weeks ago. The patient seemed to have more pain and the sed rate was elevated so we increase the prednisone to 7.5 b.i.d. from 5 mg b.i.d.. Again she did not think that made much of a difference. She remains on a host of medicines for her anxiety and depression as well as oxycodone 10 mg q.i.d. and gabapentin 800 t.i.d. for her pains. [facility] Medical History (Updated 11/24/22 @ 14:17 by Henrry Schmidt MD) Abdominal hernia Arthritis of both knees Asthma Blind left eye Chronic pain Degenerative disc disease Depression Diabetes mellitus Fibromyalgia Glaucoma Headache disorder History of anemia History of hypothyroidism Inflammatory arthritis Morbid obesity HUSSEIN (obstructive sleep apnea) Surgical History History of section History of hernia surgery Family History Father CAD (coronary artery disease) Mother Cancer of pancreas Obesity Brother CAD (coronary artery disease) Obesity Social History Household Members: None Housing: Apartment Alcohol intake: never Patient Tobacco Use Status: Never used Tobacco e-Cigarette/Vaping Use: Never Used Current occupational status: unemployed Current occupation: right handed Review of Systems Const Details: Low energy. Negative for appetite change, weight change, fever, chills, malaise and fatigue Eyes Details: Negative for vision change, dry eyes,headaches and dizziness ENT Details: Negative for hearing change, tinnitus, oral ulcer, nose bleeds and oral dryness. Card Details: Negative chest pain, edema and syncope Resp Details: Negative for SOB, cough and wheezing GI Details: Negative indigestion/heartburn, nausea, abdominal pain, bowel changes, diarrhea, constipation and bloody stool. Psych Details: Negative for anxiety, depression and stress Endo Details: Negative for polyuria and polydypsia Steve/Lymph Details: Negative for excessive bruising or bleeding. Physical Exam Vital Signs: Last Vital Signs Temp 97.2 F 11/24/22 11:51 Pulse 74 11/24/22 11:51 BP 132/80 11/24/22 11:51 Pulse Ox 96 11/24/22 11:51 Oxygen Delivery Method Room Air 11/24/22 11:51 BMI result Body Mass Index 51.7 APPEARANCE: Patient in no acute distress EYES no redness, pupils equal and reactive to light, eyelids normal EXTREMITIES: No edema, no calf tenderness, normal peripheral pulses. SKIN: No inflammatory or neoplastic lesions. Normal color and turgor JOINT EXAM: ?? Cervical Spine:.? Slight pain with extremes of normal range of motion. There is some cervical muscle tenderness. Thoracic Spine:.? No scoliosis.? No tenderness on palpation. Lumbar Spine:.? Alignment normal.? Exam is limited because we can get her out of the wheelchair but she appears to have no pain with range of motion.? No no tenderness. Chest Wall:.? No tenderness, swelling, increased warmth or erythema. Hands:? Right:? Mild pain with range of motion in the fingers.? There is tenderness across the 1st 3 MCPs but they do not seem swollen.? There is tenderness across all the PIP is although I can not detect any significant swelling.? There is no triggering, sensory loss or thenar atrophy.? Left:? Mild pain with range of motion at the 2nd through 4th fingers.? There is mild tenderness across the MCP joints with questionable swelling of the MCPs.? There is mild tenderness of the 4th and 5th flexor tendons but no triggering.? No sensory loss or thenar atrophy. Wrists:.? Mild pain with flexion extension at 75 degrees with some dorsal tenderness.? I do not appreciate swelling, increased warmth or erythema. Elbows:. Normal pain-free range of motion without tenderness, swelling, increased warmth or erythema. Shoulders:.? Right:? There is mild pain with abduction at 90 degrees or with any attempted rotation.? There is mild anterior tenderness with some abductor weakness.? No adenopathy.? Left:? Moderate to severe pain with any movement.? There is anterior, posterior and subacromial tenderness.? No adenopathy.? There probably is some weakness but it is hard to assess because she can not move it without pain.? No soft tissue swelling, redness or warmth. Hips:.? Unable to fully evaluate her in the wheelchair. Hip bursa:.? No tenderness. Knees:.??Left:? Mild pain with flexion or extension.? There is mild patellofemoral crepitus and medial tenderness but no redness or effusion.? Right : Mild to moderate pain with full extension or flexion to 90 degrees.? There is medial and popliteal tenderness with minimal effusion. Ankles:.? Normal pain-free range of motion with slight tenderness but no swelling, increased warmth or erythema. Feet:.? Normal pain-free range of motion. There is some instep tenderness but I do not appreciate swelling, increased warmth or erythema. Tender points:? Mild tenderness to digital palpation at the occiput, trapezius, second rib, lateral epicondyle, knees, greater trochanter? area bilaterally. Results Reviewed Results Reviewed: Lab work from [facility]: October 20: White count 6.3, hemoglobin 11.5, creatinine 0.5, SGOT 18, SGPT 16. 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: Code(s): Z79.899 - Other terminal superintendent (current) drug therapy (2) Osteoarthritis of knees, bilateral: Code(s): M17.0 - Bilateral primary osteoarthritis of knee Qualifiers: Osteoarthritis type: primary Qualified Code(s): M17.0 - Bilateral primary osteoarthritis of knee (3) Fibromyalgia: Code(s): M79.7 - Fibromyalgia (4) Seronegative rheumatoid arthritis: Comment: Methotrexate-04/2016- present Gustavo 03/2020 -06/2020 - changed to Humira due to active disease Humira 06/2020- 09/2020- changed to Actemra due to active disease Actemra with methotrexate 09/2020 Change to Orencia and methotrexate July 2022 due to lack of response Code(s): M06.00 - Rheumatoid arthritis without rheumatoid factor, unspecified site Plan The patient returns today still having fairly widespread pains. I do not see clear signs of active synovitis although with her obesity it may be hard to detect such findings in her hands. The switch to Orencia and even the increase in prednisone did not seem to make any improvement in her symptoms. She does have many tender points so I think she has certainly an element of fibromyalgia. She has of course a significant anxiety disorder as well. There is also osteoarthritis documented on x-rays of her knees. I cannot explain the sed rate of 122 although the CRP done at that time was much lower. She had workup SPEP for a paraportein in the past that was negative. We will repeat those inflammatory markers today. I suspect most of her pains right now are due to OA and fibromyalgia rather than active RA. We will cut the prednisone back down to 5 mg b.i.d.. She will continue with the methotrexate and Orencia as above. We will repeat the LFTs as well and plan to see her back in about 3 months. Orders: Orders Comprehensive Met. Panel Today M06.00 - Rheumatoid arthritis without rheumatoid factor, unspecified site, Z79.899 - Other intermediate (current) drug therapy C Reactive Protein Today M06.00 - Rheumatoid arthritis without rheumatoid factor, unspecified site, Z79.899 - Other intermediate (current) drug therapy Complete Blood Count Auto Diff Today M06.00 - Rheumatoid arthritis without rheumatoid factor, unspecified site, Z79.899 - Other terminal superintendent (current) drug therapy Erythrocyte Sedimentation Rate Today M06.00 - Rheumatoid arthritis without rheumatoid factor, unspecified site, Z79.899 - Other terminal superintendent (current) drug therapy Coding Level of Care Code Est Pt Level 3 (23439) Diagnoses snf methotrexate user Z79.899 Osteoarthritis of knees, bilateral M17.0 Osteoarthritis type: primary Fibromyalgia M79.7 Seronegative rheumatoid arthritis M06.00
[2022-11-24 11:51] VITALS: BP 132/80; PULSE 74; TEMP 36.2; O2SAT 96; BMI 51.7
== END 2022-11-24 12:46 | disposition home or self-care (01) ==
PROVIDERS: PCP Internal Medicine; Visit Provider Internal Medicine Rheumatology
DX: Z79.899 Other long term (current) drug therapy (principal); M17.0 Bilateral primary osteoarthritis of knee; M79.7 Fibromyalgia; M06.00 Rheumatoid arthritis without rheumatoid factor, unspecified site
CPT/HCPCS: 99213

== ENCOUNTER → 2022-11-24 11:40 | Outpatient (BNVA) | payer MEDICARE, MEDICAID, SELFPAY | PROVIDERS: PCP Internal Medicine; Visit Provider Internal Medicine Rheumatology | DX: M06.00 Rheumatoid arthritis without rheumatoid factor, unspecified site (principal); M17.0 Bilateral primary osteoarthritis of knee; M79.7 Fibromyalgia; Z79.899 Other long term (current) drug therapy | CPT/HCPCS: 99212 ==

== ENCOUNTER 2022-12-01 06:53 | Outpatient (REF) | payer MEDICARE, MEDICAID, SELFPAY ==
[2022-12-01 07:02] LABS: MANUAL DIFF FLAG NO
[2022-12-01 07:13] LABS: Basophils Percent Auto 0.3 % (0-2); Eosinophils Absolute Auto 0.1 X10*3/uL (0.0-0.4); Eosinophils Percent Auto 1.6 % (0-4); Hematocrit 37.5 % (37.0-47.0); Hemoglobin 11.8 g/dl (12.0-16.0); Imm Gran Abs Auto 0.03 X10*3/uL (0.00-0.03); Imm Gran Pct Auto 0.4 % (0.0-0.4); Lymphocytes Absolute Auto 1.4 X10*3/uL (1.2-4.9); Lymphocytes Percent Auto 20.1 % (20-40); Mean Corpuscular HGB Conc 31.5 g/dl (31.0-35.0); Mean Corpuscular Hemoglobin 28.6 pg (27.0-33.0); Mean Corpuscular Volume 90.8 fL (80.0-98.0); Monocytes Absolute Auto 0.4 X10*3/uL (0.1-1.2); Monocytes Percent Auto 6.3 % (2-11); Neutrophils Absolute Auto 4.8 x10*3/uL (2.0-8.3); Neutrophils Percent Auto 71.3 % (45-73); Platelet Count 150 X10*3/uL (160-400); Red Blood Count 4.13 X10*6/uL (4.20-5.50); White Blood Count 6.7 X10*3/uL (4.8-10.8)
[2022-12-01 07:36] LABS: Alanine Aminotransferase 20 U/L (0-31); Albumin Level 3.7 g/dL (3.5-5.0); Alkaline Phosphatase 102 U/L (39-117); Anion Gap 13 (12-20); Aspartate Amino Transferase 21 U/L (5-31); Bilirubin Total 1.2 mg/dL (0.0-1.0); Blood Urea Nitrogen 19 mg/dL (9-16); C Reactive Protein 0.58 mg/dL (< or = 0.50); Calcium 9.4 mg/dL (8.4-10.2); Carbon Dioxide 27 mmol/L (22-29); Chloride 105 mmol/L (96-108); Estimated Glomerular Filt Rate > 60; Glucose Random 210 mg/dL (60-115); Potassium 3.9 mmol/L (3.3-5.1); Sodium 141 mmol/L (135-145); Total Protein 7.9 g/dL (6.5-8.0)
[2022-12-01 07:57] LABS: Erythrocyte Sedimentation Rate 49 MM/HR (0-20)
== END 2022-12-01 06:54 | disposition home or self-care (01) ==
LOC: HO.LAB 06:53
PROVIDERS: Visit Provider Internal Medicine Rheumatology
DX: M06.00 Rheumatoid arthritis without rheumatoid factor, unspecified site (principal); Z79.899 Other long term (current) drug therapy
CPT/HCPCS: 36415; 80053; 85025; 85652; 86140

== ENCOUNTER 2023-03-02 07:32 | Outpatient (REF) | payer MEDICARE, MEDICAID, SELFPAY ==
[2023-03-02 07:46] LABS: MANUAL DIFF FLAG NO
[2023-03-02 08:06] LABS: Basophils Percent Auto 0.6 % (0-2); Eosinophils Absolute Auto 0.1 X10*3/uL (0.0-0.4); Eosinophils Percent Auto 1.7 % (0-4); Hematocrit 38.6 % (37.0-47.0); Hemoglobin 11.9 g/dl (12.0-16.0); Imm Gran Abs Auto 0.02 X10*3/uL (0.00-0.03); Imm Gran Pct Auto 0.3 % (0.0-0.4); Lymphocytes Absolute Auto 1.9 X10*3/uL (1.2-4.9); Lymphocytes Percent Auto 28.1 % (20-40); Mean Corpuscular HGB Conc 30.8 g/dl (31.0-35.0); Mean Corpuscular Volume 90.8 fL (80.0-98.0); Mean Platelet Volume 9.9 fL (9.4-12.3); Monocytes Absolute Auto 0.4 X10*3/uL (0.1-1.2); Monocytes Percent Auto 6.4 % (2-11); Neutrophils Absolute Auto 4.2 x10*3/uL (2.0-8.3); Neutrophils Percent Auto 62.9 % (45-73); Platelet Count 180 X10*3/uL (160-400); Red Blood Count 4.25 X10*6/uL (4.20-5.50); Red Cell Distribution Width 12.5 % (11.0-16.0); White Blood Count 6.6 X10*3/uL (4.8-10.8)
[2023-03-02 08:30] LABS: Alanine Aminotransferase 25 U/L (0-31); Aspartate Amino Transferase 26 U/L (5-31); C Reactive Protein 0.29 mg/dL (< or = 0.50); Estimated Glomerular Filt Rate > 60
[2023-03-02 09:01] LABS: Erythrocyte Sedimentation Rate 66 MM/HR (0-20)
== END 2023-03-02 07:33 | disposition home or self-care (01) ==
LOC: HO.LAB 07:32
PROVIDERS: PCP Internal Medicine; Visit Provider Internal Medicine Rheumatology
DX: M06.00 Rheumatoid arthritis without rheumatoid factor, unspecified site (principal); Z79.899 Other long term (current) drug therapy
CPT/HCPCS: 36415; 82565; 84450; 84460; 85025; 85652; 86140

== ENCOUNTER 2023-03-03 08:02 | Outpatient (AMB) | payer MEDICARE, MEDICAID, SELFPAY ==
[2023-03-03 08:04] VITALS: BP 124/70; PULSE 71; TEMP 36.1; O2SAT 98
--- NOTE | 2023-03-03 08:04 | MHC.OFFVIS ---
Intake Vital Signs 03/03/23 08:04 Height 5 ft 5 in BMI Reason not done Patient refused/unable BP 124/70 Blood Pressure Location Lt brachial Position Sitting Pulse 71 Pulse Source Pulse Oximeter Temp 97 F Temp Source Skin Pulse Oximetry (%) 98 Oxygen Delivery Method Room Air Intake Visit Reasons: ra Intake Note: Patient presents today to follow up on RA. 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 Required: No Accompanied by: Self / Same As Patient Allergies No Known Allergies [No Known Allergies*] Allergy (Verified 03/03/23 08:10) Medication List - Last Reconciled 03/03/23 by Henrry Schmidt MD abatacept (Orencia ClickJect) 125 mg subcut QWEEK albuterol sulfate 90 mcg/actuation (Ventolin HFA) 0 mcg inhalation albuterol sulfate mg inhalation alcohol swabs (BD Alcohol Swabs) 0 pad topical aspirin 81 mg PO DAILY atorvastatin 40 mg PO DAILY atropine 1% 1 drp ophthalmic (eye) BID blood sugar diagnostic (FreeStyle Lite Strips) As directed blood-glucose meter (FreeStyle Lite Meter kit) As directed brimonidine 0.2% 1 drp ophthalmic (eye) TID budesonide-formoterol 160-4.5 mcg/actuation (Symbicort) 2 puffs inhalation BID bupropion HCl 150 mg PO QAM buspirone mg PO cholecalciferol (vitamin D3) (Vitamin D3) 25 mcg PO DAILY cyanocobalamin (vitamin B-12) 1,000 mcg PO DAILY docusate sodium 100 mg PO BID PRN dorzolamide-timolol 22.3-6.8 mg/mL mL ophthalmic (eye) doxepin 25 - 50 mg PO BEDTIME doxepin mg PO empagliflozin (Jardiance) 10 mg PO QAM folic acid 1 mg PO DAILY gabapentin 800 mg PO TID hydrocortisone 1% (Cortisone (hydrocortisone)) 1 appl topical TID PRN insulin glargine (Lantus U-100 Insulin) 10 units subcut BID insulin glargine (Lantus Solostar U-100 Insulin) units subcut insulin lispro (Humalog KwikPen (U-100) Insulin) subcut ketoconazole 2% topical lancets (FreeStyle Lancets) As directed latanoprost 0.005% 1 drp ophthalmic (eye) BEDTIME liraglutide (Victoza 3-Jabari) 1.2 mg subcut DAILY lisinopril 5 mg PO DAILY lisinopril 5 mg PO DAILY melatonin 10 mg PO BEDTIME PRN metformin 1,000 mg PO BID methotrexate sodium 15 mg (6 x 2.5 mg) PO QWEEK montelukast 10 mg PO DAILY multivitamin 1 tab PO DAILY oxycodone 1 tab PO TID PRN pen needle, diabetic (BD Ultra-Fine Mini Pen Needle) As directed polyethylene glycol 3350 (Miralax) 17 grams PO DAILY prazosin 2 mg PO BEDTIME prednisolone acetate 1% 1 drp ophthalmic (eye) BID PRN prednisone 5 mg (2 x 2.5 mg) PO BID tizanidine 4 mg PO BID PRN tizanidine 4 mg PO BID topiramate 200 mg PO BID trazodone 200 mg PO BID vilazodone (Viibryd) 40 mg PO DAILY HPI HPI Comments History of Present Illness Details The patient returns today for evaluation of her seronegative rheumatoid arthritis and osteoarthritis. She relates some intermittent low back pain that is more severe at times. She is in a wheelchair mostly because of leg weakness due to peripheral neuropathy. There is associated numbness in the legs below the mid tibial region. She also notes some problems with the hands in that she drops objects at times. She has had a few episodes where the 2nd and 3rd fingers seem to freeze up. It is unclear whether this is muscle spasm or some triggering. In the past she recalls at least 2 nerve conduction studies where she was told she had lower extremity neuropathy, this was about 10 years ago. Additionally there was another nerve conduction test done about 5 years ago that showed neuropathy in the upper extremities. She does have type 2 diabetes and is on multiple medications. For the RA she remains on abatacept 125 mg weekly, methotrexate 15 mg weekly, and folic acid 1 mg daily. For her pains and neuropathy she is on oxycodone 10 q.i.d., doxepin at bedtime, gabapentin 800 t.i.d., and has much assistance in her home. She is also on antidepressants and medications for anxiety. She says she has an upcoming meeting with Psychiatry to discuss her psychiatric meds. We had cut her prednisone back to 5 b.i.d. as higher doses did not seem to help her much. [facility] Medical History (Updated 11/24/22 @ 14:17 by Henrry Schmidt MD) Diabetes mellitus HUSSEIN (obstructive sleep apnea) Morbid obesity Inflammatory arthritis Headache disorder History of hypothyroidism History of anemia Glaucoma Fibromyalgia Depression Degenerative disc disease Chronic pain Blind left eye Asthma Arthritis of both knees Abdominal hernia Surgical History History of hernia surgery History of section Family History Father CAD (coronary artery disease) Mother Cancer of pancreas Obesity Brother CAD (coronary artery disease) Obesity Social History Household Members: None Housing: Apartment Alcohol intake: never Comment: medicated, see MAR Patient Tobacco Use Status: Never used Tobacco e-Cigarette/Vaping Use: Never Used Current occupational status: unemployed Current occupation: right handed Review of Systems Const Details: Negative for appetite change, weight change, fever, chills, malaise and fatigue Eyes Details: Negative for vision change, dry eyes,headaches and dizziness ENT Details: Negative for hearing change, tinnitus, oral ulcer, nose bleeds and oral dryness. Card Details: Negative chest pain, edema and syncope Resp Details: Negative for SOB, cough and wheezing GI Details: Negative indigestion/heartburn, nausea, abdominal pain, bowel changes, diarrhea, constipation and bloody stool. Neuro Details: Lower extremity weakness, dropping objects with hands, numbness below the mid tibial area bilaterally. Negative for epilepsy, palsy, stroke, changes in speech Psych Details: anxiety, depression stable with current measures. Endo Details: Negative for polyuria and polydypsia Steve/Lymph Details: Negative for excessive bruising or bleeding. Physical Exam Vital Signs: Last Vital Signs Temp 97 F 03/03/23 08:04 Pulse 71 03/03/23 08:04 BP 124/70 03/03/23 08:04 Pulse Ox 98 03/03/23 08:04 Oxygen Delivery Method Room Air 03/03/23 08:04 APPEARANCE: Patient in no acute distress EYES no redness, pupils equal and reactive to light, eyelids normal Cervical Spine:.? Slight pain with extremes of normal range of motion. There is some cervical muscle tenderness. Thoracic Spine:.? No scoliosis.? No tenderness on palpation. Lumbar Spine:.? Alignment normal.? Exam is limited because we can get her out of the wheelchair but she appears to have no pain with range of motion.? No no tenderness. Chest Wall:.? No tenderness, swelling, increased warmth or erythema. Hands:? Right:? Mild pain with range of motion in the fingers.? There is tenderness across the 1st 3 MCPs but they do not seem swollen.? There is tenderness across all the PIP is although I can not detect any significant swelling.? There is no triggering, sensory loss or thenar atrophy.? Left:? Mild pain with range of motion at the 2nd through 4th fingers.? There is mild tenderness across the MCP joints with questionable swelling of the MCPs.? There is mild tenderness of the 4th and 5th flexor tendons but no triggering.? No sensory loss or thenar atrophy. Wrists:.? Mild pain with flexion extension at 75 degrees with some dorsal tenderness.? I do not appreciate swelling, increased warmth or erythema. Elbows:. Normal pain-free range of motion without tenderness, swelling, increased warmth or erythema. Shoulders:.? Right:? There is mild pain with abduction at 90 degrees or with any attempted rotation.? There is mild anterior tenderness with some abductor weakness.? No adenopathy.? Left:? Moderate to severe pain with any movement.? There is anterior, posterior and subacromial tenderness.? No adenopathy.? There probably is some weakness but it is hard to assess because she can not move it without pain.? No soft tissue swelling, redness or warmth. Hips:.? Unable to fully evaluate her in the wheelchair. Hip bursa:.? No tenderness. Knees:.??Left:? Mild pain with flexion or extension.? There is mild patellofemoral crepitus and medial tenderness but no redness or effusion.? Right: Mild to moderate pain with full extension or flexion to 90 degrees.? There is medial and popliteal tenderness with minimal effusion. Ankles:.? Normal pain-free range of motion with slight tenderness but no swelling, increased warmth or erythema. Feet:? Normal pain-free range of motion. There is some instep tenderness but I do not appreciate swelling, increased warmth or erythema. Tender points:? Mild tenderness to digital palpation at the occiput, trapezius, second rib, lateral epicondyle, knees, greater trochanter? area bilaterally. Results Reviewed Results Reviewed: Laboratory Tests 06/29/22 03/02/23 07:25 07:44 WBC 7.9 6.6 Hgb 11.1 L 11.9 L ESR 83 H 66 H Creatinine 0.63 0.67 AST 25 26 ALT 21 25 C-Reactive Protein 4.04 H 0.29 Assessment & Plan Assessment & Plan (1) Fibromyalgia: Code(s): M79.7 - Fibromyalgia (2) Diabetic neuropathy: Code(s): E11.40 - Type 2 diabetes mellitus with diabetic neuropathy, unspecified (3) care home methotrexate user: Code(s): Z79.899 - Other assisted (current) drug therapy (4) Osteoarthritis of knees, bilateral: Code(s): M17.0 - Bilateral primary osteoarthritis of knee Qualifiers: Osteoarthritis type: primary Qualified Code(s): M17.0 - Bilateral primary osteoarthritis of knee (5) Seronegative rheumatoid arthritis: Comment: Methotrexate-04/2016- present Xekevinz 03/2020 -06/2020 - changed to Humira due to active disease Humira 06/2020- 09/2020- changed to Actemra due to active disease Actemra with methotrexate 09/2020 Change to Orencia and methotrexate July 2022 due to lack of response Code(s): M06.00 - Rheumatoid arthritis without rheumatoid factor, unspecified site Plan The patient continues to have fairly widespread pains but not much on exam to suggest an active inflammatory arthritis. The sed rate that had been very high for unclear reasons has come down although remains elevated and now the CRP is normal. I think for the most part her pains are not due to inflammatory arthritis but more likely due to osteoarthritis, fibromyalgia and peripheral neuropathy. The neuropathy is relatively severe and has been present for years. I think she should stay with the current dose of methotrexate and Orencia as the blood work otherwise looks okay. She may not need this much prednisone so I asked her to cut the dose from 5 mg b.i.d. to 5 mg the morning and 2.5 mg in the afternoon. She is somewhat reluctant to reduce the dose because she thinks she might need it but I told her it is worth a try since the prednisone even at this low dose does have side effects. We would have her do lab work before next visit in 3-4 months. Orders: Orders Alanine Aminotransferase Today M06.00 - Rheumatoid arthritis without rheumatoid factor, unspecified site, Z79.899 - Other assisted (current) drug therapy Complete Blood Count Auto Diff 1 Month M06.00 - Rheumatoid arthritis without rheumatoid factor, unspecified site, Z79.899 - Other assisted (current) drug therapy Erythrocyte Sedimentation Rate 1 Month M06.00 - Rheumatoid arthritis without rheumatoid factor, unspecified site C Reactive Protein 1 Month M06.00 - Rheumatoid arthritis without rheumatoid factor, unspecified site Aspartate Amino Transferase Today M06.00 - Rheumatoid arthritis without rheumatoid factor, unspecified site, Z79.899 - Other quality assurance monitor final (current) drug therapy Creatinine Today M06.00 - Rheumatoid arthritis without rheumatoid factor, unspecified site, Z79.899 - Other quality assurance monitor final (current) drug therapy Medications: Changed From prednisone 5 mg (2 x 2.5 mg) PO BID 120 tabs 3RF M06.00 - Rheumatoid arthritis without rheumatoid factor, unspecified site To prednisone two tab in AM and one tab in PM 90 tabs 3RF M06.00 - Rheumatoid arthritis without rheumatoid factor, unspecified site Refilled methotrexate sodium 15 mg (6 x 2.5 mg) PO QWEEK 77 tabs 0RF M06.00 - Rheumatoid arthritis without rheumatoid factor, unspecified site Coding Level of Care Code Est Pt Level 4 (84037) Diagnoses Fibromyalgia M79.7 Diabetic neuropathy E11.40 care home methotrexate user Z79.899 Primary osteoarthritis of both knees M17.0 Osteoarthritis type: primary Seronegative rheumatoid arthritis M06.00
== END 2023-03-03 08:38 | disposition home or self-care (01) ==
PROVIDERS: PCP Internal Medicine; Visit Provider Internal Medicine Rheumatology
DX: M79.7 Fibromyalgia (principal); E11.40 Type 2 diabetes mellitus with diabetic neuropathy, unspecified; Z79.899 Other long term (current) drug therapy; M17.0 Bilateral primary osteoarthritis of knee; M06.00 Rheumatoid arthritis without rheumatoid factor, unspecified site
CPT/HCPCS: 99214

== ENCOUNTER → 2023-03-03 08:02 | Outpatient (BNVA) | payer MEDICARE, MEDICAID, SELFPAY | PROVIDERS: PCP Internal Medicine; Visit Provider Internal Medicine Rheumatology | DX: M06.00 Rheumatoid arthritis without rheumatoid factor, unspecified site (principal); M79.7 Fibromyalgia; M17.0 Bilateral primary osteoarthritis of knee; E11.40 Type 2 diabetes mellitus with diabetic neuropathy, unspecified; Z79.899 Other long term (current) drug therapy | CPT/HCPCS: 99212 ==

== ENCOUNTER 2023-06-21 06:51 | Outpatient (REF) | payer MEDICARE, MEDICAID, SELFPAY ==
[2023-06-21 07:03] LABS: MANUAL DIFF FLAG NO
[2023-06-21 07:41] LABS: Basophils Percent Auto 0.5 % (0-2); Eosinophils Absolute Auto 0.1 X10*3/uL (0.0-0.4); Eosinophils Percent Auto 1.8 % (0-4); Hematocrit 37.6 % (37.0-47.0); Hemoglobin 11.8 g/dl (12.0-16.0); Imm Gran Abs Auto 0.02 X10*3/uL (0.00-0.03); Imm Gran Pct Auto 0.3 % (0.0-0.4); Lymphocytes Absolute Auto 2.1 X10*3/uL (1.2-4.9); Lymphocytes Percent Auto 26.3 % (20-40); Mean Corpuscular HGB Conc 31.4 g/dl (31.0-35.0); Mean Corpuscular Hemoglobin 28.2 pg (27.0-33.0); Mean Platelet Volume 9.7 fL (9.4-12.3); Monocytes Absolute Auto 0.5 X10*3/uL (0.1-1.2); Monocytes Percent Auto 5.8 % (2-11); Neutrophils Absolute Auto 5.1 x10*3/uL (2.0-8.3); Neutrophils Percent Auto 65.3 % (45-73); Platelet Count 161 X10*3/uL (160-400); Red Blood Count 4.18 X10*6/uL (4.20-5.50); Red Cell Distribution Width 12.5 % (11.0-16.0); White Blood Count 7.8 X10*3/uL (4.8-10.8)
[2023-06-21 08:02] LABS: Alanine Aminotransferase 21 U/L (0-31); Aspartate Amino Transferase 20 U/L (5-31); C Reactive Protein 0.55 mg/dL (< or = 0.50); Estimated Glomerular Filt Rate > 60
[2023-06-21 08:35] LABS: Erythrocyte Sedimentation Rate 65 MM/HR (0-20)
== END 2023-06-21 06:52 | disposition home or self-care (01) ==
LOC: HO.LAB 06:51
PROVIDERS: Visit Provider Internal Medicine Rheumatology
DX: M06.00 Rheumatoid arthritis without rheumatoid factor, unspecified site (principal); Z79.899 Other long term (current) drug therapy
CPT/HCPCS: 36415; 82565; 84450; 84460; 85025; 85652; 86140

== ENCOUNTER 2023-06-23 07:33 | Outpatient (AMB) | payer MEDICARE, MEDICAID, SELFPAY ==
--- NOTE | 2023-06-23 08:24 | A.OFFVIS_ITS ---
Intake Vital Signs 06/23/23 08:27 Height 5 ft 5 in BMI Reason not done Patient refused/unable BP 124/78 Blood Pressure Location Rt brachial Position Sitting Pulse 76 Pulse Source Pulse Oximeter Pulse Oximetry (%) 97 Oxygen Delivery Method Room Air Comment unable to stand on scale Intake Visit Reasons: RA/neuropathy/fm with animal nutrition consultant Intake Note: Patient last seen 03/03/23, presents today for follow up and test results. Sql Data Architect Required: Yes Sql Data Architect Language: Pashto Information Interpreted: clinical only Accompanied by: Self / Same As Patient Allergies No Known Allergies [No Known Allergies*] Allergy (Verified 06/23/23 08:24) HPI HPI Comments History of Present Illness Details Ms. Merrill 53-year-old female returns today for follow-up of her seronegative rheumatoid arthritis and osteoarthritis. For the RA she remains on abatacept 125 mg weekly, methotrexate 15 mg weekly, and folic acid 1 mg daily, and prednisone 7.5 mg daily. She shares that at the last visit her prednisone from 10 mg 7.5 and she is feeling the difference in her joints especially in her hands. She is frustrated that the changes in the medications are happening so often and she has not getting better. Much her her neuropathy remains as outlined below. She continues in a wheelchair. February 2023 Dr. Schmidt The patient returns today for evaluation of her seronegative rheumatoid arthritis and osteoarthritis. She relates some intermittent low back pain that is more severe at times. She is in a wheelchair mostly because of leg weakness due to peripheral neuropathy. There is associated numbness in the legs below the mid tibial region. She also notes some problems with the hands in that she drops objects at times. She has had a few episodes where the 2nd and 3rd fingers seem to freeze up. It is unclear whether this is muscle spasm or some triggering. In the past she recalls at least 2 nerve conduction studies where she was told she had lower extremity neuropathy, this was about 10 years ago. Additionally there was another nerve conduction test done about 5 years ago that showed neuropathy in the upper extremities. She does have type 2 diabetes and is on multiple medications. For the RA she remains on abatacept 125 mg weekly, methotrexate 15 mg weekly, and folic acid 1 mg daily. For her pains and neuropathy she is on oxycodone 10 q.i.d., doxepin at bedtime, gabapentin 800 t.i.d., and has much assistance in her home. She is also on antidepressants and medications for anxiety. She says she has an upcoming meeting with Psychiatry to discuss her psychiatric meds. We had cut her prednisone back to 5 b.i.d. as higher doses did not seem to help her much. [facility] Medical History (Updated 06/23/23 @ 10:34 by CHAR Tripathi-KEELY) Elevated sed rate Diabetes mellitus HUSSEIN (obstructive sleep apnea) Morbid obesity Inflammatory arthritis Headache disorder History of hypothyroidism History of anemia Glaucoma Fibromyalgia Depression Degenerative disc disease Chronic pain Blind left eye Asthma Arthritis of both knees Abdominal hernia Surgical History History of hernia surgery History of section Family History Father CAD (coronary artery disease) Mother Cancer of pancreas Obesity Brother CAD (coronary artery disease) Obesity Social History Household Members: None Housing: Apartment Alcohol intake: never Comment: medicated, see MAR Patient Tobacco Use Status: Never used Tobacco e-Cigarette/Vaping Use: Never Used Current occupational status: unemployed Current occupation: right handed Review of Systems Const All systems reviewed & are unremarkable except as noted in HPI and below Physical Exam Vital Signs: Last Vital Signs Pulse 76 06/23/23 08:27 BP 124/78 06/23/23 08:27 Pulse Ox 97 06/23/23 08:27 Oxygen Delivery Method Room Air 06/23/23 08:27 APPEARANCE: Patient in no acute distress EYES no redness, pupils equal and reactive to light, eyelids normal Cervical Spine:.? Slight pain with extremes of normal range of motion. There is some cervical muscle tenderness. Thoracic Spine:.? No scoliosis.? No tenderness on palpation. Lumbar Spine:.? Alignment normal.? Exam is limited because we can get her out of the wheelchair but she appears to have no pain with range of motion.? No no tenderness. Chest Wall:.? No tenderness, swelling, increased warmth or erythema. Hands:? Right:? Mild pain with range of motion in the fingers.? There is tenderness across the 1st 3 MCPs but they do not seem swollen.? There is tenderness across all the PIP is although I can not detect any significant swelling.? There is no triggering, sensory loss or thenar atrophy.? Left:? Mild pain with range of motion at the 2nd through 4th fingers.? There is mild tenderness across the MCP joints with questionable swelling of the MCPs.? There is mild tenderness of the 4th and 5th flexor tendons but no triggering.? No sensory loss or thenar atrophy. Wrists:.? Mild pain with flexion extension at 75 degrees with some dorsal tenderness.? I do not appreciate swelling, increased warmth or erythema. Elbows:. Normal pain-free range of motion without tenderness, swelling, increased warmth or erythema. Shoulders:.? Right:? There is mild pain with abduction at 90 degrees or with any attempted rotation.? There is mild anterior tenderness with some abductor weakness.? No adenopathy.? Left:? Moderate to severe pain with any movement.? There is anterior, posterior and subacromial tenderness.? No adenopathy.? There probably is some weakness but it is hard to assess because she can not move it without pain.? No soft tissue swelling, redness or warmth. Hips:.? Unable to fully evaluate her in the wheelchair. Hip bursa:.? No tenderness. Knees:.??Left:? Mild pain with flexion or extension.? There is mild patellofemoral crepitus and medial tenderness but no redness or effusion.? Right: Mild to moderate pain with full extension or flexion to 90 degrees.? There is medial and popliteal tenderness with minimal effusion. Ankles:.? Normal pain-free range of motion with slight tenderness but no swelling, increased warmth or erythema. Feet:? Normal pain-free range of motion. There is some instep tenderness but I do not appreciate swelling, increased warmth or erythema. Tender points:? Mild tenderness to digital palpation at the occiput, trapezius, second rib, lateral epicondyle, knees, greater trochanter? area bilaterally. Results Reviewed Results Reviewed: Laboratory Tests 06/29/22 03/02/23 07:25 07:44 WBC 7.9 6.6 Hgb 11.1 L 11.9 L ESR 83 H 66 H Creatinine 0.63 0.67 AST 25 26 ALT 21 25 C-Reactive Protein 4.04 H 0.29 Laboratory Tests 06/21/23 07:01 WBC 7.8 RBC 4.18 L Hgb 11.8 L Hct 37.6 ESR 65 H AST 20 ALT 21 C-Reactive Protein 0.55 H Assessment & Plan Assessment & Plan (1) Diabetic neuropathy: Code(s): E11.40 - Type 2 diabetes mellitus with diabetic neuropathy, unspecified Qualifiers: Diabetes mellitus type: type 2 Diabetes mellitus complication detail: diabetic polyneuropathy Qualified Code(s): E11.42 - Type 2 diabetes mellitus with diabetic polyneuropathy (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: Code(s): Z79.899 - Other medical terminologist (current) drug therapy (3) Osteoarthritis of knees, bilateral: Code(s): M17.0 - Bilateral primary osteoarthritis of knee Qualifiers: Osteoarthritis type: primary Qualified Code(s): M17.0 - Bilateral primary osteoarthritis of knee (4) Seronegative rheumatoid arthritis: Comment: Methotrexate-04/2016- present Xeljanz 03/2020 -06/2020 - changed to Humira due to active disease Humira 06/2020- 09/2020- changed to Actemra due to active disease Actemra with methotrexate 09/2020 Change to Orencia and methotrexate July 2022 due to lack of response Code(s): M06.00 - Rheumatoid arthritis without rheumatoid factor, unspecified site (5) Elevated sed rate: Code(s): R70.0 - Elevated erythrocyte sedimentation rate Plan The patient continues to have fairly widespread pains, with elevated ESR CRP. The patient seems very frustrated at this point not understanding why she has not feeling improved on all this medication. At this time I am proposing with her and she agrees that we will make some changes and monitor her progress closely. She will make note of any improvement or deterioration but these changes. For the next month, we will hold Orencia, continue methotrexate and increase prednisone to 20 mg per day. In the second month continue to hold Orencia, now hold methotrexate and reduce prednisone to 15 mg. Patient will call if she has worsened and also we will re-evaluate at next visit. The patient knows to monitor her blood sugar on prednisone and make insulin adjustment if necessary. She has tenderness across all MCPs, her shoulders, her thighs, but synovitis on exam or obvious symptoms to suggest an active inflammatory arthritis. The sed rate that had been stable but very high, and the CRP which was normal is elevated again on the reduced prednisone from 10 to 7.5 mg. Her symptoms and labs seemed to respond better to the prednisone then to the immunosuppressive therapies. She seems to be very sensitive to the changes in prednisone. We will proceed as such for now. I also think a lot of her pains can be due to fibromyalgia and peripheral neuropathy. The neuropathy is relatively severe and has been present for years. I will obtain updated labs to evaluate further. I spent 50 minutes reviewing history, evaluating, consoling and counseling patient and documenting Follow-up in 5 weeks Orders: Orders C Reactive Protein 5 Weeks M06.00 - Rheumatoid arthritis without rheumatoid factor, unspecified site, R70.0 - Elevated erythrocyte sedimentation rate, Z79.899 - Other medical terminologist (current) drug therapy Immunoglobulins,IgG IgA IgM 5 Weeks M06.00 - Rheumatoid arthritis without rheumatoid factor, unspecified site, R70.0 - Elevated erythrocyte sedimentation rate, Z79.899 - Other medical terminologist (current) drug therapy Protein Electrophoresis, Serum 5 Weeks M06.00 - Rheumatoid arthritis without rheumatoid factor, unspecified site, R70.0 - Elevated erythrocyte sedimentation rate, Z79.899 - Other residential (current) drug therapy Immunofixation Pnl, Serum 5 Weeks M06.00 - Rheumatoid arthritis without rheumatoid factor, unspecified site, R70.0 - Elevated erythrocyte sedimentation rate, Z79.899 - Other residential (current) drug therapy Rheumatoid Factor 5 Weeks M06.00 - Rheumatoid arthritis without rheumatoid factor, unspecified site, R70.0 - Elevated erythrocyte sedimentation rate, Z79.899 - Other medical terminologist (current) drug therapy Erythrocyte Sedimentation Rate 5 Weeks M06.00 - Rheumatoid arthritis without rheumatoid factor, unspecified site, R70.0 - Elevated erythrocyte sedimentation rate, Z79.899 - Other medical terminologist (current) drug therapy Comprehensive Met. Panel 5 Weeks M06.00 - Rheumatoid arthritis without rheumatoid factor, unspecified site, R70.0 - Elevated erythrocyte sedimentation rate, Z79.899 - Other medical terminologist (current) drug therapy Complete Blood Count Auto Diff 5 Weeks M06.00 - Rheumatoid arthritis without rheumatoid factor, unspecified site, R70.0 - Elevated erythrocyte sedimentation rate, Z79.899 - Other residential (current) drug therapy Cyclic Citrullinated Peptide 5 Weeks M06.00 - Rheumatoid arthritis without rheumatoid factor, unspecified site, R70.0 - Elevated erythrocyte sedimentation rate, Z79.899 - Other medical terminologist (current) drug therapy Uric Acid 5 Weeks M06.00 - Rheumatoid arthritis without rheumatoid factor, unspecified site, R70.0 - Elevated erythrocyte sedimentation rate, Z79.899 - Other medical terminologist (current) drug therapy Medications: New prednisone see taper instructions 20 mg (2 x 10 mg) PO DAILY 90 tabs 0RF M06.00 - Rheumatoid arthritis without rheumatoid factor, unspecified site On Hold prednisone Hold Comment: Dose Change two tab in AM and one tab in PM 90 tabs 3RF M06.00 - Rheumatoid arthritis without rheumatoid factor, unspecified site Coding Level of Care Code Est Pt Level 4 (86948) Diagnoses Diabetic polyneuropathy associated with type 2 diabetes mellitus E11.42 Diabetes mellitus type: type 2 Diabetes mellitus complication detail: diabetic polyneuropathy [facility] methotrexate user Z79.899 Primary osteoarthritis of both knees M17.0 Osteoarthritis type: primary Seronegative rheumatoid arthritis M06.00 Elevated sed rate R70.0
[2023-06-23 08:27] VITALS: BP 124/78; PULSE 76; O2SAT 97
== END 2023-06-23 09:15 | disposition home or self-care (01) ==
PROVIDERS: PCP Internal Medicine; Visit Provider Nurse Practitioner Family
DX: E11.42 Type 2 diabetes mellitus with diabetic polyneuropathy (principal); Z79.899 Other long term (current) drug therapy; M17.0 Bilateral primary osteoarthritis of knee; M06.00 Rheumatoid arthritis without rheumatoid factor, unspecified site; R70.0 Elevated erythrocyte sedimentation rate
CPT/HCPCS: 99214

== ENCOUNTER → 2023-06-23 07:33 | Outpatient (BNVA) | payer MEDICARE, MEDICAID, SELFPAY | PROVIDERS: PCP Internal Medicine; Visit Provider Nurse Practitioner Family | DX: M17.0 Bilateral primary osteoarthritis of knee (principal); M06.00 Rheumatoid arthritis without rheumatoid factor, unspecified site; E11.42 Type 2 diabetes mellitus with diabetic polyneuropathy; R70.0 Elevated erythrocyte sedimentation rate; Z79.899 Other long term (current) drug therapy | CPT/HCPCS: 99212 ==

== ENCOUNTER 2023-07-27 06:25 | Outpatient (REF) | payer MEDICARE, MEDICAID, SELFPAY ==
[2023-07-27 06:43] LABS: MANUAL DIFF FLAG NO
[2023-07-27 07:55] LABS: Basophils Percent Auto 0.4 % (0-2); Eosinophils Absolute Auto 0.1 X10*3/uL (0.0-0.4); Hematocrit 38.7 % (37.0-47.0); Imm Gran Abs Auto 0.03 X10*3/uL (0.00-0.03); Imm Gran Pct Auto 0.4 % (0.0-0.4); Lymphocytes Absolute Auto 1.9 X10*3/uL (1.2-4.9); Lymphocytes Percent Auto 26.5 % (20-40); Mean Corpuscular Volume 90.2 fL (80.0-98.0); Mean Platelet Volume 9.7 fL (9.4-12.3); Monocytes Absolute Auto 0.5 X10*3/uL (0.1-1.2); Monocytes Percent Auto 6.7 % (2-11); Neutrophils Absolute Auto 4.5 x10*3/uL (2.0-8.3); Platelet Count 166 X10*3/uL (160-400); Red Blood Count 4.29 X10*6/uL (4.20-5.50); Red Cell Distribution Width 12.6 % (11.0-16.0); White Blood Count 7.1 X10*3/uL (4.8-10.8)
[2023-07-27 08:15] LABS: Rheumatoid Factor < 13.0 IU/mL (<15.0)
[2023-07-27 08:26] LABS: Alanine Aminotransferase 20 U/L (0-31); Albumin Level 3.8 g/dL (3.5-5.0); Alkaline Phosphatase 101 U/L (39-117); Anion Gap 11 (12-20); Aspartate Amino Transferase 22 U/L (5-31); Blood Urea Nitrogen 12 mg/dL (9-16); C Reactive Protein 0.52 mg/dL (< or = 0.50); Calcium 9.2 mg/dL (8.4-10.2); Carbon Dioxide 30 mmol/L (22-29); Chloride 103 mmol/L (96-108); Estimated Glomerular Filt Rate > 60; Glucose Random 156 mg/dL (60-115); Potassium 3.6 mmol/L (3.3-5.1); Sodium 140 mmol/L (135-145); Total Protein 8.1 g/dL (6.5-8.0); Uric Acid 4.8 mg/dL (2.4-5.7)
[2023-07-27 08:31] LABS: Erythrocyte Sedimentation Rate 57 MM/HR (0-20)
[2023-07-28 22:38] LABS: Prot Elec - Albumin 3.7 g/dL (3.8-4.8); Prot Elec - Alpha1 0.3 g/dL (0.2-0.3); Prot Elec - Alpha2 0.7 g/dL (0.5-0.9); Prot Elec - Beta 1 0.6 g/dL (0.4-0.6); Prot Elec - Beta 2 0.6 g/dL (0.2-0.5); Prot Elec - Gamma 1.6 g/dL (0.8-1.7); Prot Elec - Total Protein 7.6 g/dL (6.1-8.1)
[2023-07-29 14:28] LABS: Cyclic Citrullinated Peptide <16 UNITS
[2023-07-30 18:38] LABS: IgA 661 mg/dL (47-310); IgG 1732 mg/dL (600-1640); IgM 62 mg/dL (50-300)
== END 2023-07-27 06:26 | disposition home or self-care (01) ==
LOC: HO.LAB 06:25
PROVIDERS: PCP Internal Medicine; Visit Provider Nurse Practitioner Family
DX: M06.00 Rheumatoid arthritis without rheumatoid factor, unspecified site (principal); R70.0 Elevated erythrocyte sedimentation rate; Z79.899 Other long term (current) drug therapy
CPT/HCPCS: 36415; 80053; 82784; 84165; 84550; 85025; 85652; 86140; 86200; 86334; 86431

== ENCOUNTER 2023-08-12 08:33 | Outpatient (AMB) | payer MEDICARE, MEDICAID, SELFPAY ==
--- NOTE | 2023-08-12 08:44 | MHC.OFFVIS ---
Vital Signs 08/12/23 08:48 Height 5 ft 5 in BMI Reason not done Patient refused/unable BP 120/70 Blood Pressure Location Rt brachial Position Sitting Pulse 76 Pulse Source Pulse Oximeter Pulse Oximetry (%) 94 Oxygen Delivery Method Room Air Comment on wheelchair, per pt 309 lbs in Apr, 2023 Intake Visit Reasons: Inflammatory Arthritis./lm Intake Note: Patient last seen 06/23/23, presents today for follow up and test results. Group Sales Coordinator Required: No Allergies No Known Allergies [No Known Allergies*] Allergy (Verified 08/12/23 08:51) HPI Comments Details: Ms. Merrill 53-year-old female returns today for follow-up of her seronegative rheumatoid arthritis and osteoarthritis. For the RA she had held the abatacept 125 mg weekly and realized that she had worsening symptoms. She had also restarted the methotrexate 15 mg weekly, and folic acid 1 mg daily, and continue prednisone 7.5 mg daily. Much her her neuropathy remains as outlined below. She continues in a wheelchair. February 2023 Dr. Schmidt The patient returns today for evaluation of her seronegative rheumatoid arthritis and osteoarthritis. She relates some intermittent low back pain that is more severe at times. She is in a wheelchair mostly because of leg weakness due to peripheral neuropathy. There is associated numbness in the legs below the mid tibial region. She also notes some problems with the hands in that she drops objects at times. She has had a few episodes where the 2nd and 3rd fingers seem to freeze up. It is unclear whether this is muscle spasm or some triggering. In the past she recalls at least 2 nerve conduction studies where she was told she had lower extremity neuropathy, this was about 10 years ago. Additionally there was another nerve conduction test done about 5 years ago that showed neuropathy in the upper extremities. She does have type 2 diabetes and is on multiple medications. For the RA she remains on abatacept 125 mg weekly, methotrexate 15 mg weekly, and folic acid 1 mg daily. For her pains and neuropathy she is on oxycodone 10 q.i.d., doxepin at bedtime, gabapentin 800 t.i.d., and has much assistance in her home. She is also on antidepressants and medications for anxiety. She says she has an upcoming meeting with Psychiatry to discuss her psychiatric meds. We had cut her prednisone back to 5 b.i.d. as higher doses did not seem to help her much. [facility] Medical History (Updated 08/12/23 @ 09:58 by GRISELDA Tripathi) Family history of polymyositis Myalgia Elevated sed rate Diabetes mellitus HUSSEIN (obstructive sleep apnea) Morbid obesity Inflammatory arthritis Headache disorder History of hypothyroidism History of anemia Glaucoma Fibromyalgia Depression Degenerative disc disease Chronic pain Blind left eye Asthma Arthritis of both knees Abdominal hernia Surgical History History of hernia surgery History of section Family History Father CAD (coronary artery disease) Mother Cancer of pancreas Obesity Brother CAD (coronary artery disease) Obesity Social History Household Members: None Housing: Apartment Alcohol intake: never Comment: medicated, see MAR Patient Tobacco Use Status: Never used Tobacco e-Cigarette/Vaping Use: Never Used Current occupational status: unemployed Current occupation: right handed Review of Systems Const All systems reviewed & are unremarkable except as noted in HPI and below Physical Exam Vital Signs: Last Vital Signs Pulse 76 08/12/23 08:48 BP 120/70 08/12/23 08:48 Pulse Ox 94 08/12/23 08:48 Oxygen Delivery Method Room Air 08/12/23 08:48 APPEARANCE: Patient in no acute distress EYES no redness, pupils equal and reactive to light, eyelids normal Cervical Spine:.? Slight pain with extremes of normal range of motion. There is some cervical muscle tenderness. Thoracic Spine:.? No scoliosis.? No tenderness on palpation. Lumbar Spine:.? Alignment normal.? Exam is limited because we can get her out of the wheelchair but she appears to have no pain with range of motion.? No no tenderness. Chest Wall:.? No tenderness, swelling, increased warmth or erythema. Hands:? Right:? Mild pain with range of motion in the fingers.? There is tenderness across the 1st 3 MCPs but they do not seem swollen.? There is tenderness across all the PIP is although I can not detect any significant swelling.? There is no triggering, sensory loss or thenar atrophy.? Left:? Mild pain with range of motion at the 2nd through 4th fingers.? There is mild tenderness across the MCP joints with questionable swelling of the MCPs.? There is mild tenderness of the 4th and 5th flexor tendons but no triggering.? No sensory loss or thenar atrophy. Wrists:.? Mild pain with flexion extension at 75 degrees with some dorsal tenderness.? I do not appreciate swelling, increased warmth or erythema. Elbows:. Normal pain-free range of motion without tenderness, swelling, increased warmth or erythema. Shoulders:.? Right:? There is mild pain with abduction at 90 degrees or with any attempted rotation.? There is mild anterior tenderness with some abductor weakness.? No adenopathy.? Left:? Moderate to severe pain with any movement.? There is anterior, posterior and subacromial tenderness.? No adenopathy.? There probably is some weakness but it is hard to assess because she can not move it without pain.? No soft tissue swelling, redness or warmth. Hips:.? Unable to fully evaluate her in the wheelchair. Hip bursa:.? No tenderness. Knees:.??Left:? Mild pain with flexion or extension.? There is mild patellofemoral crepitus and medial tenderness but no redness or effusion.? Right: Mild to moderate pain with full extension or flexion to 90 degrees.? There is medial and popliteal tenderness with minimal effusion. Ankles:.? Normal pain-free range of motion with slight tenderness but no swelling, increased warmth or erythema. Feet:? Normal pain-free range of motion. There is some instep tenderness but I do not appreciate swelling, increased warmth or erythema. Tender points:? Mild tenderness to digital palpation at the occiput, trapezius, second rib, lateral epicondyle, knees, greater trochanter? area bilaterally. Assessment & Plan Assessment & Plan (1) Diabetic neuropathy: Code(s): E11.40 - Type 2 diabetes mellitus with diabetic neuropathy, unspecified Category: Medical Qualifiers: Diabetes mellitus complication detail: diabetic polyneuropathy Diabetes mellitus type: type 2 Qualified Code(s): E11.42 - Type 2 diabetes mellitus with diabetic polyneuropathy (2) half-way methotrexate user: Code(s): Z79.899 - Other custodial (current) drug therapy Category: Medical (3) Osteoarthritis of knees, bilateral: Code(s): M17.0 - Bilateral primary osteoarthritis of knee Category: Medical Qualifiers: Osteoarthritis type: primary Qualified Code(s): M17.0 - Bilateral primary osteoarthritis of knee (4) Seronegative rheumatoid arthritis: Comment: Methotrexate-04/2016- present Gustavo 03/2020 -06/2020 - changed to Humira due to active disease Humira 06/2020- 09/2020- changed to Actemra due to active disease Actemra with methotrexate 09/2020 Change to Orencia and methotrexate July 2022 due to lack of response Code(s): M06.00 - Rheumatoid arthritis without rheumatoid factor, unspecified site Category: Medical (5) Elevated sed rate: Code(s): R70.0 - Elevated erythrocyte sedimentation rate Category: Medical Plan --restart MTX --Continue Prednisone 10 mg --Continue with Orencia. - she relized it is needed and tracey help with the RA. --will check CK for muscle breakdown --f/u labs beore next visit The patient continues to have fairly widespread pains, with elevated ESR CRP. The patient seems very frustrated at this point not understanding why she has not feeling improved on all this medication. At this time I am proposing with her and she agrees that we will make some changes and monitor her progress closely. She will make note of any improvement or deterioration but these changes. For the next month, we will hold Orencia, continue methotrexate and increase prednisone to 20 mg per day. In the second month continue to hold Orencia, now hold methotrexate and reduce prednisone to 15 mg. Patient will call if she has worsened and also we will re-evaluate at next visit. The patient knows to monitor her blood sugar on prednisone and make insulin adjustment if necessary. She has tenderness across all MCPs, her shoulders, her thighs, but synovitis no exam or obvious symptoms to suggest an active inflammatory arthritis. The sed rate that had been stable but very high, and the CRP which was normal is elevated again on the reduced prednisone from 10 to 7.5 mg. Her symptoms and labs seemed to respond better to the prednisone then to the immunosuppressive therapies. She seems to be very sensitive to the changes in prednisone. We will proceed as such for now. I also think a lot of her pains can be due to fibromyalgia and peripheral neuropathy. The neuropathy is relatively severe and has been present for years and her mobility has decline since December 2019. I will obtain updated labs to evaluate further. I spent 20 minutes reviewing history, evaluating, consoling and counseling patient and documenting Orders: Orders C Reactive Protein 08/12/23 M06.00 - Rheumatoid arthritis without rheumatoid factor, unspecified site, M79.10 - Myalgia, unspecified site Complete Blood Count Auto Diff 08/12/23 M06.00 - Rheumatoid arthritis without rheumatoid factor, unspecified site, M79.10 - Myalgia, unspecified site Erythrocyte Sedimentation Rate 08/12/23 M06.00 - Rheumatoid arthritis without rheumatoid factor, unspecified site, M79.10 - Myalgia, unspecified site Creatine Kinase Total 08/12/23 M06.00 - Rheumatoid arthritis without rheumatoid factor, unspecified site, M79.10 - Myalgia, unspecified site Comprehensive Met. Panel 08/12/23 M06.00 - Rheumatoid arthritis without rheumatoid factor, unspecified site, M79.10 - Myalgia, unspecified site Aldolase 08/12/23 M06.00 - Rheumatoid arthritis without rheumatoid factor, unspecified site, M79.10 - Myalgia, unspecified site Uric Acid 08/12/23 M06.00 - Rheumatoid arthritis without rheumatoid factor, unspecified site, M79.10 - Myalgia, unspecified site [place] [facility] [place] Z82.69 - Family history of other diseases of the musculoskeletal system and connective tissue Coding Level of Care Code Est Pt Level 3 (44580) Diagnoses Diabetic polyneuropathy associated with type 2 diabetes mellitus E11.42 Diabetes mellitus complication detail: diabetic polyneuropathy Diabetes mellitus 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
[2023-08-12 08:48] VITALS: BP 120/70; PULSE 76; O2SAT 94
== END 2023-08-12 10:05 | disposition home or self-care (01) ==
PROVIDERS: PCP Internal Medicine; Visit Provider Nurse Practitioner Family
DX: E11.42 Type 2 diabetes mellitus with diabetic polyneuropathy (principal); Z79.899 Other long term (current) drug therapy; M17.0 Bilateral primary osteoarthritis of knee; M06.00 Rheumatoid arthritis without rheumatoid factor, unspecified site; R70.0 Elevated erythrocyte sedimentation rate
CPT/HCPCS: 99213

== ENCOUNTER → 2023-08-12 08:33 | Outpatient (BNVA) | payer MEDICARE, MEDICAID, SELFPAY | PROVIDERS: PCP Internal Medicine; Visit Provider Nurse Practitioner Family | DX: M17.0 Bilateral primary osteoarthritis of knee (principal); M06.00 Rheumatoid arthritis without rheumatoid factor, unspecified site; E11.42 Type 2 diabetes mellitus with diabetic polyneuropathy; R70.0 Elevated erythrocyte sedimentation rate; Z79.899 Other long term (current) drug therapy | CPT/HCPCS: 99212 ==

== ENCOUNTER 2023-09-09 06:59 | Outpatient (REF) | payer MEDICARE, MEDICAID, SELFPAY ==
[2023-09-09 07:19] LABS: MANUAL DIFF FLAG NO
[2023-09-09 07:35] LABS: Basophils Percent Auto 0.4 % (0-2); Eosinophils Absolute Auto 0.2 X10*3/uL (0.0-0.4); Eosinophils Percent Auto 2.3 % (0-4); Hematocrit 37.2 % (37.0-47.0); Hemoglobin 11.5 g/dl (12.0-16.0); Imm Gran Abs Auto 0.03 X10*3/uL (0.00-0.03); Imm Gran Pct Auto 0.4 % (0.0-0.4); Lymphocytes Absolute Auto 1.8 X10*3/uL (1.2-4.9); Mean Corpuscular HGB Conc 30.9 g/dl (31.0-35.0); Mean Corpuscular Volume 90.7 fL (80.0-98.0); Mean Platelet Volume 9.7 fL (9.4-12.3); Monocytes Absolute Auto 0.4 X10*3/uL (0.1-1.2); Monocytes Percent Auto 6.2 % (2-11); Neutrophils Absolute Auto 4.3 x10*3/uL (2.0-8.3); Neutrophils Percent Auto 63.7 % (45-73); Platelet Count 169 X10*3/uL (160-400); Red Cell Distribution Width 12.8 % (11.0-16.0); White Blood Count 6.8 X10*3/uL (4.8-10.8)
[2023-09-09 07:55] LABS: Alanine Aminotransferase 20 U/L (0-31); Albumin Level 3.8 g/dL (3.5-5.0); Alkaline Phosphatase 92 U/L (39-117); Anion Gap 12 (12-20); Aspartate Amino Transferase 21 U/L (5-31); Bilirubin Total 1.4 mg/dL (0.0-1.0); Blood Urea Nitrogen 17 mg/dL (9-16); C Reactive Protein 0.72 mg/dL (< or = 0.50); Calcium 9.4 mg/dL (8.4-10.2); Carbon Dioxide 30 mmol/L (22-29); Chloride 104 mmol/L (96-108); Estimated Glomerular Filt Rate > 60; Glucose Random 106 mg/dL (60-115); Potassium 3.9 mmol/L (3.3-5.1); Sodium 142 mmol/L (135-145); Uric Acid 5.1 mg/dL (2.4-5.7)
[2023-09-09 08:29] LABS: Erythrocyte Sedimentation Rate 47 MM/HR (0-20)
[2023-09-15 14:57] LABS: Aldolase 5.9 U/L (<=8.1)
== END 2023-09-09 07:00 | disposition home or self-care (01) ==
LOC: HO.LAB 06:59
PROVIDERS: Visit Provider Nurse Practitioner Family
DX: M06.00 Rheumatoid arthritis without rheumatoid factor, unspecified site (principal); M79.10 Myalgia, unspecified site; Z82.69 Family history of other diseases of the musculoskeletal system and connective tissue
CPT/HCPCS: 36415; 80053; 82085; 82550; 84182; 84550; 85025; 85652; 86140; 86235

== ENCOUNTER 2023-12-21 06:47 | Outpatient (REF) | payer MEDICARE, MEDICAID, SELFPAY ==
[2023-12-21 07:00] LABS: MANUAL DIFF FLAG NO
[2023-12-21 07:11] LABS: Basophils Percent Auto 0.5 % (0-2); Eosinophils Absolute Auto 0.2 X10*3/uL (0.0-0.4); Eosinophils Percent Auto 3.6 % (0-4); Hemoglobin 12.3 g/dl (12.0-16.0); Lymphocytes Absolute Auto 1.4 X10*3/uL (1.2-4.9); Lymphocytes Percent Auto 25.5 % (20-40); Mean Corpuscular HGB Conc 31.5 g/dl (31.0-35.0); Mean Corpuscular Hemoglobin 27.9 pg (27.0-33.0); Mean Corpuscular Volume 88.4 fL (80.0-98.0); Mean Platelet Volume 9.2 fL (9.4-12.3); Monocytes Absolute Auto 0.3 X10*3/uL (0.1-1.2); Monocytes Percent Auto 5.6 % (2-11); Neutrophils Absolute Auto 3.6 x10*3/uL (2.0-8.3); Neutrophils Percent Auto 64.8 % (45-73); Platelet Count 185 X10*3/uL (160-400); Red Blood Count 4.41 X10*6/uL (4.20-5.50); Red Cell Distribution Width 12.8 % (11.0-16.0); White Blood Count 5.5 X10*3/uL (4.8-10.8)
[2023-12-21 07:41] LABS: Alanine Aminotransferase 20 U/L (0-31); Albumin Level 3.7 g/dL (3.5-5.0); Alkaline Phosphatase 91 U/L (39-117); Anion Gap 13 (12-20); Aspartate Amino Transferase 27 U/L (5-31); Bilirubin Total 1.3 mg/dL (0.0-1.0); Blood Urea Nitrogen 12 mg/dL (9-16); C Reactive Protein 1.02 mg/dL (< or = 0.50); Calcium 9.2 mg/dL (8.4-10.2); Carbon Dioxide 29 mmol/L (22-29); Chloride 105 mmol/L (96-108); Estimated Glomerular Filt Rate > 60; Glucose Random 102 mg/dL (60-115); Potassium 3.6 mmol/L (3.3-5.1); Sodium 143 mmol/L (135-145); Total Protein 8.1 g/dL (6.5-8.0)
[2023-12-21 07:53] LABS: Erythrocyte Sedimentation Rate 66 MM/HR (0-20)
[2023-12-24 09:39] LABS: TS Negative Control Passed; TS Panel A 0; TS Panel B 2; TS Positive Control Passed; TSpotTB Negative (Negative)
== END 2023-12-21 06:48 | disposition home or self-care (01) ==
LOC: HO.LAB 06:47
PROVIDERS: PCP Internal Medicine; Visit Provider Student in an Organized Health Care Education/Training Program
DX: M06.00 Rheumatoid arthritis without rheumatoid factor, unspecified site (principal); Z79.899 Other long term (current) drug therapy
CPT/HCPCS: 36415; 80053; 85025; 85652; 86140; 86481

== ENCOUNTER 2024-03-15 08:47 | Outpatient (AMB) | payer MEDICARE, MEDICAID, SELFPAY ==
--- NOTE | 2024-03-15 09:02 | A.OFFVIS_ITS ---
Vital Signs 03/15/24 09:08 Height 5 ft 5 in BMI Reason not done Patient refused/unable BP 112/64 Blood Pressure Location Lt brachial Position Sitting Pulse 77 Pulse Source Pulse Oximeter Pulse Oximetry (%) 97 Oxygen Delivery Method Room Air Intake Visit Reasons: Inflammatory Arthritis./CM Intake Note: Patient presents for Inflammatory Arthritis. Allergies No Known Allergies [No Known Allergies*] Allergy (Verified 03/15/24 09:06) Medication List - Last Reconciled 03/15/24 by Janet Madrigal MD abatacept (Orencia ClickJect) 125 mg subcut QWEEK albuterol sulfate 90 mcg/actuation (Ventolin HFA) 0 mcg inhalation albuterol sulfate mg inhalation alcohol swabs (BD Alcohol Swabs) 0 pad topical aspirin 81 mg PO DAILY atorvastatin 40 mg PO DAILY atropine 1% 1 drp ophthalmic (eye) BID blood sugar diagnostic (FreeStyle Lite Strips) As directed blood-glucose meter (FreeStyle Lite Meter kit) As directed brimonidine 0.2% 1 drp ophthalmic (eye) TID budesonide-formoterol 160-4.5 mcg/actuation (Symbicort) 2 puffs inhalation BID bupropion HCl XL 300 mg PO DAILY buspirone mg PO cholecalciferol (vitamin D3) (Vitamin D3) 25 mcg PO DAILY cyanocobalamin (vitamin B-12) 1,000 mcg PO DAILY docusate sodium 100 mg PO BID PRN dorzolamide-timolol 22.3-6.8 mg/mL mL ophthalmic (eye) doxepin 25 - 50 mg PO BEDTIME doxepin mg PO empagliflozin (Jardiance) 10 mg PO QAM folic acid 1 mg PO DAILY gabapentin 800 mg PO TID insulin glargine (Lantus Solostar U-100 Insulin) units subcut insulin lispro (Humalog KwikPen (U-100) Insulin) subcut lancets (FreeStyle Lancets) As directed latanoprost 0.005% 1 drp ophthalmic (eye) BEDTIME lisinopril 5 mg PO DAILY melatonin 10 mg PO BEDTIME PRN metformin 1,000 mg PO BID methotrexate sodium 15 mg (6 x 2.5 mg) PO QWEEK montelukast 10 mg PO DAILY multivitamin 1 tab PO DAILY oxycodone 1 tab PO TID PRN pen needle, diabetic (BD Ultra-Fine Mini Pen Needle) As directed polyethylene glycol 3350 (Miralax) 17 grams PO DAILY prednisolone acetate 1% 1 drp ophthalmic (eye) BID PRN prednisone two tab in AM and one tab in PM tizanidine 4 mg PO BID HPI Comments Details: Patient is a 53-year-old female morbidly obese with hypertension, hyperlipidemia, diabetes complicated by peripheral neuropathy, inflammatory arthritis/seronegative rheumatoid arthritis and fibromyalgia here today for foll ow up Interval History: Patient last seen 08/12/2023 with Jennifer boswell. At that time she was noted to have widespread joint pains with elevated ESR and CRP. Her methotrexate was restarted she was scheduled for follow up Today patient complains of prolonged morning stiffness, right ankle pain and swelling, hand pain and stiffness. Rheumatologic History: Patient was diagnosed in 2016 with inflammatory arthritis. Notes not seen but this was likely based on elevated inflammatory markers and synovitis on examination. Her seronegative inflammatory arthritis is complicated by fibromyalgia and osteoarthritis of the knees. Methotrexate-04/2016- present Xeljohnz 03/2020 -06/2020 - changed to Humira due to active disease Humira 06/2020- 09/2020- changed to Actemra due to active disease Actemra with methotrexate 09/2020 Change to Orencia and methotrexate July 2022 due to lack of response Current Rheumatology Medication(s): Prednisone 7.5 mg daily (5 mg in the morning 2.5 mg in the evening) Methotrexate 15 mg weekly Folic acid 1 mg daily Orencia 125 mg weekly [facility] Medical History (Updated 03/15/24 @ 10:41 by Janet Madrigal MD) Adalimumab (Humira) long-term use Family history of polymyositis Myalgia Elevated sed rate Diabetes mellitus HUSSEIN (obstructive sleep apnea) Morbid obesity Inflammatory arthritis Headache disorder History of hypothyroidism History of anemia Glaucoma Fibromyalgia Depression Degenerative disc disease Chronic pain Blind left eye Asthma Arthritis of both knees Abdominal hernia Surgical History History of hernia surgery History of section Family History Father CAD (coronary artery disease) Mother Cancer of pancreas Obesity Brother CAD (coronary artery disease) Obesity Social History Household Members: None Housing: Apartment Alcohol intake: never Comment: medicated, see MAR Patient Tobacco Use Status: Never used Tobacco e-Cigarette/Vaping Use: Never Used Current occupational status: unemployed Current occupation: right handed Review of Systems Const Details: Review of Systems Constitutional: Denies fever, chills, weight loss ENT: Denies vision changes, eye pain or eye redness, dental caries, dry mouth GI: Denies nausea, vomiting, diarrhea, abdominal pain, change in BM Pulm: Denies SOB, MENDOZA, hemoptysis, wheezing Cards: Denies chest pain, palpitations Skin: Denies Raynaud's, rash, nail changes, photosensitivity, [employer]: Denies headaches, weakness, paresthesias, recurrent falls MSK: as per HPI All other systems reviewed and are unremarkable except noted above Physical Exam Vital Signs: Last Vital Signs Pulse 77 03/15/24 09:08 BP 112/64 03/15/24 09:08 Pulse Ox 97 03/15/24 09:08 Oxygen Delivery Method Room Air 03/15/24 09:08 Physical Examination CONSTITUITIONAL Patient alert and cooperative. Patient tearful during exam. Examined in wheelchair HEENT Conjunctiva and sclera clear. ?Pupils equal round and reactive to light. ?No lymphadenopathy. ? CHEST/RESPIRATORY SYSTEM Normal respiratory effort and able to speak in complete sentences. ?Clear to auscultation bilaterally. ?No crackles, rales, rhonchi, wheezes heard. CARDIAC SYSTEM Regular rate and rhythm. ?S1 and S2 heard no murmurs. ?Radial pulses intact bilaterally MSK Hands: ?Good multiple games dealer strength bilaterally. No deformities noted. ?Tenderness to pa lpation of MCPs and PIPs bilaterally. No fullness noted to these joints. Wrists: ?Full range of motion at the wrists without pain. ?Tenderness to palpation of the wrist joint. No swelling or fullness noted. Elbows: Full range of motion without pain. No tenderness, weakness, swelling, increased warmth or erythema. Shoulders: Full range of motion without pain. No tenderness, weakness, swelling, increased warmth or erythema. Knees: ?Full range of motion. ?No tenderness, swelling, increased warmth or erythema.? Crepitations noted bilaterally Ankles: Full range of motion. ?Right ankle swollen compared to the left ankle. Tenderness to palpation of the ankle joint on the right. With likely tenosynovitis of the medial and lateral tendons. Feet: ?Negative squeeze test. ?No tenderness to palpation or swelling of the MTPs. Tender points:??No tenderness to palpation of the neck, shoulders, chest, elbows, hips, buttocks or knees. SKIN Skin intact without rashes. Results Reviewed Results Reviewed: Laboratory Tests 07/27/23 09/09/23 12/21/23 06:41 07:17 06:59 WBC 5.5 RBC 4.41 Hgb 12.3 Hct 39.0 Plt Count 185 ESR 57 H 47 H 66 H Sodium 143 Potassium 3.6 Chloride 105 Carbon Dioxide 29 BUN 12 Creatinine 0.73 AST 21 27 ALT 20 20 Alkaline Phosphatase 92 91 C-Reactive Protein 0.72 H 1.02 H Rheumatoid Factor < 13.0 Cycl Citrul Peptide IgG <16 Assessment & Plan Assessment & Plan (1) Seronegative rheumatoid arthritis: Comment: Methotrexate-04/2016- present Xeljanz 03/2020 -06/2020 - changed to Humira due to active disease Humira 06/2020- 09/2020- changed to Actemra due to active disease Actemra with methotrexate 09/2020 Change to Orencia and methotrexate July 2022 due to lack of response Code(s): M06.00 - Rheumatoid arthritis without rheumatoid factor, unspecified site Category: Medical Plan: #Seronegative RA Patient with seronegative RA currently with a flare of her disease as evidenced by swelling and tenderness to palpation, tenderness to palpation of MCPs and PIPs, as well as history of prolonged morning stiffness and joint pain and swelling. The difficulty with this patient is that she also has peripheral neuropathy from her diabetes as well as osteoarthritis involving multiple joints including the hands, knees and spine. My concern is that we are trying to treat an inflammatory arthritis when this may all be due to osteoarthritis. Per for now she does have ankle swelling pain and so we are going to try and change up her rheumatoid arthritis regimen. She does not want in hospital infusions because she has anxiety ever since COVID about being in a hospital setting especially around other patients. 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 Limit alcohol and avoid Bactrim ? Monitoring: ?CBC, BMP, LFTs every 3-4 months and hepatitis serologies as needed (3) Adalimumab (Humira) long-term use: Code(s): Z79.620 - termite treater (current) use of immunosuppressive biologic Category: Medical Plan: #Long-term Use of TNF Inhibitors: Humira Discussed with the patient the benefits and risks of TNF inhibitors for the management of the rheumatic condition Benefits include reduce pain, maintenance of remission and reduction of flares as well as ?progression of the disease Risks include injection sites/infusion reactions, serious infections (such as bacterial infections, opportunistic infections), malignancy, delaminating syndromes, autoimmune phenomena, CHF exacerbations, palmar plantar psoriasis and cytopenias Recommended rotating injection sites, and holding medication during and for up to 1 week after resolution of a febrile illness or open skin wound Plan I spent 45 minutes reviewing the record and labs, seeing the patient, discussing the treatment plan and documenting in the medical record ? Orders: Orders Comprehensive Met. Panel Today M06.00 - Rheumatoid arthritis without rheumatoid factor, unspecified site C Reactive Protein Today M06.00 - Rheumatoid arthritis without rheumatoid factor, unspecified site Complete Blood Count Auto Diff 4 Weeks M06.00 - Rheumatoid arthritis without rheumatoid factor, unspecified site, Z79.620 - [facility] (current) use of immunosuppressive biologic, Z79.899 - Other [facility] (current) drug therapy C Reactive Protein 4 Weeks M06.00 - Rheumatoid arthritis without rheumatoid factor, unspecified site, Z79.620 - termite treater (current) use of immunosuppressive biologic, Z79.899 - Other terminal press operator (current) drug therapy Erythrocyte Sedimentation Rate 4 Weeks M06.00 - Rheumatoid arthritis without rheumatoid factor, unspecified site, Z79.620 - termite treater (current) use of immunosuppressive biologic, Z79.899 - Other terminal press operator (current) drug therapy T Spot TB 4 Weeks M06.00 - Rheumatoid arthritis without rheumatoid factor, unspecified site, Z79.620 - termite treater (current) use of immunosuppressive biologic, Z79.899 - Other terminal press operator (current) drug therapy Immunofixation Pnl, Serum 4 Weeks M06.00 - Rheumatoid arthritis without rheumatoid factor, unspecified site, Z79.620 - termite treater (current) use of immunosuppressive biologic, Z79.899 - Other [facility] (current) drug therapy XR hand wrist LT 4 Weeks M06.00 - Rheumatoid arthritis without rheumatoid factor, unspecified site, Z79.620 - termite treater (current) use of immunosuppressive biologic, Z79.899 - Other terminal press operator (current) drug therapy XR ankle RT min 3V 4 Weeks M06.00 - Rheumatoid arthritis without rheumatoid factor, unspecified site, Z79.620 - [facility] (current) use of immunosuppressive biologic, Z79.899 - Other [facility] (current) drug therapy XR knee RT 3V 4 Weeks M06.00 - Rheumatoid arthritis without rheumatoid factor, unspecified site, Z79.620 - [facility] (current) use of immunosuppressive biologic, Z79.899 - Other terminal press operator (current) drug therapy XR knee standing BI 4 Weeks M06.00 - Rheumatoid arthritis without rheumatoid factor, unspecified site, Z79.620 - termite treater (current) use of immunosuppressive biologic, Z79.899 - Other terminal press operator (current) drug therapy Erythrocyte Sedimentation Rate Today M06.00 - Rheumatoid arthritis without rheumatoid factor, unspecified site Complete Blood Count Auto Diff Today M06.00 - Rheumatoid arthritis without rheumatoid factor, unspecified site Comprehensive Met. Panel 4 Weeks M06.00 - Rheumatoid arthritis without rheumatoid factor, unspecified site, Z79.620 - termite treater (current) use of immunosuppressive biologic, Z79.899 - Other [facility] (current) drug therapy Hepatitis A,B,C Profile 4 Weeks M06.00 - Rheumatoid arthritis without rheumatoid factor, unspecified site, Z79.620 - termite treater (current) use of immunosuppressive biologic, Z79.899 - Other [facility] (current) drug therapy Protein Electrophoresis, Serum 4 Weeks M06.00 - Rheumatoid arthritis without rheumatoid factor, unspecified site, Z79.620 - [facility] (current) use of immunosuppressive biologic, Z79.899 - Other terminal press operator (current) drug therapy Vitamin D 25-OH (D2 and D3) 4 Weeks M06.00 - Rheumatoid arthritis without rheumatoid factor, unspecified site, Z79.620 - termite treater (current) use of immunosuppressive biologic, Z79.899 - Other [facility]p (current) drug therapy XR hand wrist RT 4 Weeks M06.00 - Rheumatoid arthritis without rheumatoid factor, unspecified site, Z79.620 - [facility] (current) use of immunosuppressive biologic, Z79.899 - Other terminal press operator (current) drug therapy XR ankle LT min 3V 4 Weeks M06.00 - Rheumatoid arthritis without rheumatoid factor, unspecified site, Z79.620 - [facility] (current) use of immunosuppressive biologic, Z79.899 - Other [facility] (current) drug therapy XR knee LT 3V 4 Weeks M06.00 - Rheumatoid arthritis without rheumatoid factor, unspecified site, Z79.620 - termite treater (current) use of immunosuppressive biologic, Z79.899 - Other [facility] (current) drug therapy Medications: New folic acid 1 mg PO DAILY 90 tabs 1RF M06.00 - Rheumatoid arthritis without rheumatoid factor, unspecified site, Z79.899 - Other terminal press operator (current) drug therapy adalimumab (Humira Pen) 40 mg (0.8 mL) subcut QWEEK 2 ea 6RF M06.00 - Rheumatoid arthritis without rheumatoid factor, unspecified site, Z79.620 - termite treater (current) use of immunosuppressive biologic Changed From prednisone two tab in AM and one tab in PM 90 tabs 0RF M06.00 - Rheumatoid arthritis without rheumatoid factor, unspecified site To prednisone Take 4 tablets for 1 week, then take 3 tablets for 1 week, then take 2 tablets (1 in the morning and 1 in the evening) 120 tabs 1RF M06.00 - Rheumatoid arthritis without rheumatoid factor, unspecified site From methotrexate sodium 15 mg (6 x 2.5 mg) PO QWEEK 77 tabs 1RF M06.00 - Rheumatoid arthritis without rheumatoid factor, unspecified site To methotrexate sodium 20 mg (8 x 2.5 mg) PO QWEEK 90 days 104 tabs 1RF M06.00 - Rheumatoid arthritis without rheumatoid factor, unspecified site From gabapentin 800 mg PO TID M79.7 - Fibromyalgia To gabapentin 800 mg PO TID 90 days 270 tabs 1RF M79.7 - Fibromyalgia From cholecalciferol (vitamin D3) (Vitamin D3) 25 mcg PO DAILY E55.9 - Vitamin D deficiency, unspecified To cholecalciferol (vitamin D3) 25 mcg (1/2 x 50 mcg (2,000 unit)) PO DAILY 90 caps 1RF E55.9 - Vitamin D deficiency, unspecified Discontinued abatacept (Orencia ClickJect) Discontinued Reason: Doctor's Order 125 mg subcut QWEEK 4 mL 5RF M06.00 - Rheumatoid arthritis without rheumatoid factor, unspecified site Coding Level of Care Code Est Pt Level 5 (04238) Complex EM visit Add On G2211 Diagnoses Seronegative rheumatoid arthritis M06.00 termite treater methotrexate user Z79.899 Adalimumab (Humira) long-term use Z79.620
[2024-03-15 09:08] VITALS: BP 112/64; PULSE 77; O2SAT 97
== END 2024-03-15 09:46 | disposition home or self-care (01) ==
PROVIDERS: PCP Internal Medicine; Visit Provider Student in an Organized Health Care Education/Training Program
DX: M06.09 Rheumatoid arthritis without rheumatoid factor, multiple sites (principal); Z79.899 Other long term (current) drug therapy; Z79.620 Long term (current) use of immunosuppressive biologic
CPT/HCPCS: 99215; G2211

== ENCOUNTER → 2024-03-15 08:47 | Outpatient (BNVA) | payer MEDICARE, MEDICAID, SELFPAY | PROVIDERS: PCP Internal Medicine; Visit Provider Student in an Organized Health Care Education/Training Program | DX: M79.7 Fibromyalgia (principal); M06.00 Rheumatoid arthritis without rheumatoid factor, unspecified site; E66.01 Morbid (severe) obesity due to excess calories; E78.5 Hyperlipidemia, unspecified; Z79.899 Other long term (current) drug therapy; Z79.620 Long term (current) use of immunosuppressive biologic; E55.9 Vitamin D deficiency, unspecified | CPT/HCPCS: 36415; 80053; 85025; 85652; 86140; 99212 ==

== ENCOUNTER 2024-03-15 09:53 | Outpatient (REF) | payer MEDICARE, MEDICAID, SELFPAY ==
[2024-03-15 11:05] LABS: MANUAL DIFF FLAG NO
[2024-03-15 11:11] LABS: Basophils Percent Auto 0.3 % (0-2); Eosinophils Absolute Auto 0.1 X10*3/uL (0.0-0.4); Eosinophils Percent Auto 1.4 % (0-4); Hematocrit 39.7 % (37.0-47.0); Hemoglobin 12.2 g/dl (12.0-16.0); Imm Gran Abs Auto 0.02 X10*3/uL (0.00-0.03); Imm Gran Pct Auto 0.3 % (0.0-0.4); Lymphocytes Absolute Auto 1.5 X10*3/uL (1.2-4.9); Lymphocytes Percent Auto 21.5 % (20-40); Mean Corpuscular HGB Conc 30.7 g/dl (31.0-35.0); Mean Corpuscular Hemoglobin 27.5 pg (27.0-33.0); Mean Corpuscular Volume 89.6 fL (80.0-98.0); Mean Platelet Volume 9.9 fL (9.4-12.3); Monocytes Absolute Auto 0.5 X10*3/uL (0.1-1.2); Monocytes Percent Auto 6.6 % (2-11); Neutrophils Percent Auto 69.9 % (45-73); Platelet Count 199 X10*3/uL (160-400); Red Blood Count 4.43 X10*6/uL (4.20-5.50); Red Cell Distribution Width 13.5 % (11.0-16.0); White Blood Count 7.1 X10*3/uL (4.8-10.8)
[2024-03-15 11:21] LABS: Alanine Aminotransferase 20 U/L (0-31); Albumin Level 3.7 g/dL (3.5-5.0); Alkaline Phosphatase 97 U/L (39-117); Anion Gap 11 (12-20); Aspartate Amino Transferase 22 U/L (5-31); Bilirubin Total 1.5 mg/dL (0.0-1.0); Blood Urea Nitrogen 16 mg/dL (9-16); Calcium 9.3 mg/dL (8.4-10.2); Carbon Dioxide 31 mmol/L (22-29); Chloride 103 mmol/L (96-108); Estimated Glomerular Filt Rate > 60; Glucose Random 90 mg/dL (60-115); Potassium 3.6 mmol/L (3.3-5.1); Sodium 141 mmol/L (135-145); Total Protein 7.7 g/dL (6.5-8.0)
[2024-03-15 11:47] LABS: Erythrocyte Sedimentation Rate 29 MM/HR (0-20)
== END 2024-03-15 09:54 | disposition home or self-care (01) ==
LOC: HO.10HDL 09:53
PROVIDERS: Visit Provider Student in an Organized Health Care Education/Training Program
DX: Z13.89 Encounter for screening for other disorder (principal)
CPT/HCPCS: 36415; 80053; 85025; 85652; 86140

== ENCOUNTER 2024-04-19 07:41 | Outpatient (AMB) | payer MEDICARE, MEDICAID, SELFPAY ==
--- NOTE | 2024-04-19 07:45 | A.OFFVIS_ITS ---
Vital Signs 04/19/24 07:49 Height 5 ft 5 in BMI Reason not done Patient refused/unable BP 112/68 Blood Pressure Location Rt brachial Position Sitting Pulse 76 Pulse Source Pulse Oximeter Pulse Oximetry (%) 97 Oxygen Delivery Method Room Air Intake Visit Reasons: follow up Intake Note: Patient presents for follow up. Allergies No Known Allergies [No Known Allergies*] Allergy (Verified 03/15/24 09:06) HPI Comments Details: Patient is a 53-year-old female morbidly obese with hypertension, hyperl ipidemia, diabetes complicated by peripheral neuropathy, inflammatory arthritis/seronegative rheumatoid arthritis and fibromyalgia here today for follow up Interval History: Patient last seen 03/15/2024 with me. At that time she was having a flare of her arthritis. She was given a prednisolone taper and her abatacept was stopped. Plan was to start Humira and increase methotrexate to 20 mg weekly. Today, Patient is doing better but still with pain and prolonged AM stiffness Has not received the Humira because it is on back order with the pharmacy. Continuing the Orencia in the meantime Rheumatologic History: Patient was diagnosed in 2016 with inflammatory arthritis. Notes not seen but this was likely based on elevated inflammatory markers and synovitis on examination. Her seronegative inflammatory arthritis is complicated by fibromyalgia and osteoarthritis of the knees. 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 of janus kinase inhibitor Adalimumab (Humira) long-term use Family history of polymyositis Myalgia Elevated sed rate Diabetes mellitus HUSSEIN (obstructive sleep apnea) Morbid obesity Inflammatory arthritis Headache disorder History of hypothyroidism History of anemia Glaucoma Fibromyalgia Depression Degenerative disc disease Chronic pain Blind left eye Asthma Arthritis of both knees Abdominal hernia Surgical History History of hernia surgery History of section Family History Father CAD (coronary artery disease) Mother Cancer of pancreas Obesity Brother CAD (coronary artery disease) Obesity Social History Household Members: None Housing: Apartment Alcohol intake: never Comment: medicated, see MAR Patient Tobacco Use Status: Never used Tobacco e-Cigarette/Vaping Use: Never Used Current occupational status: unemployed Current occupation: right handed Review of Systems Const Details: Review of Systems Constitutional: Denies fever, chills, weight loss ENT: Denies vision changes, eye pain or eye redness, dental caries, dry mouth GI: Denies nausea, vomiting, diarrhea, abdominal pain, change in BM Pulm: Denies SOB, MENDOZA, hemoptysis, wheezing Cards: Denies chest pain, palpitations Skin: Denies Raynaud's, rash, nail changes, photosensitivity, CUSTOMER EXPERIENCE STRATEGIST: Denies headaches, weakness, paresthesias, recurrent falls MSK: as per HPI All other systems reviewed and are unremarkable except noted above Physical Exam Vital signs reviewed Physical Examination CONSTITUITIONAL Patient alert and cooperative. Patient tearful during exam. Examined in wheelchair HEENT Conjunctiva and sclera clear. ?Pupils equal round and reactive to light. ?No lymphadenopathy. ? CHEST/RESPIRATORY SYSTEM Normal respiratory effort and able to speak in complete sentences. ?Clear to auscultation bilaterally. ?No crackles, rales, rhonchi, wheezes heard. CARDIAC SYSTEM Regular rate and rhythm. ?S1 and S2 heard no murmurs. ?Radial pulses intact bilaterally MSK Hands: ?Good manager systems strength bilaterally. No deformities noted. ?No tenderness to palpation of MCPs and PIPs bilaterally. No fullness noted to these joints. Wrists: ?Full range of motion at the wrists without pain. ?Tenderness to palpation of the wrist joint. No swelling or fullness noted. Elbows: Full range of motion without pain. No tenderness, weakness, swelling, increased warmth or erythema. Shoulders: Full range of motion without pain. No tenderness, weakness, swelling, increased warmth or erythema. Knees: ?Full range of motion. ?No tenderness, swelling, increased warmth or erythema.? Crepitations noted bilaterally Ankles: Full range of motion. ?Right ankle with mild swelling but this is improved. No TTP Feet: ?Negative squeeze test. ?No tenderness to palpation or swelling of the MTPs. Tender points:??No tenderness to palpation of the neck, shoulders, chest, elbows, hips, buttocks or knees. SKIN Skin intact without rashes. Results Reviewed Results Reviewed: Laboratory Tests 06/09/18 07/27/23 12/21/23 06:35 06:41 06:59 WBC RBC Hgb Hct Plt Count ESR Sodium Potassium Chloride Carbon Dioxide BUN Creatinine AST ALT Alkaline Phosphatase C-Reactive Protein Total Protein Albumin Rheumatoid Factor < 13.0 Cycl Citrul Peptide IgG <16 Hepatitis A IgM Ab NONREACTIVE Hep Bs Antigen NEGATIVE Hep Bs Antibody NONREACTIVE Hep B Core Total Ab NONREACTIVE Hepatitis C Ab (EIA) NONREACTIVE TB Test (T-Spot) Com Negative 03/15/24 09:56 WBC 7.1 RBC 4.43 Hgb 12.2 Hct 39.7 Plt Count 199 ESR 29 H Sodium 141 Potassium 3.6 Chloride 103 Carbon Dioxide 31 H BUN 16 Creatinine 0.69 AST 22 ALT 20 Alkaline Phosphatase 97 C-Reactive Protein 0.60 H Total Protein 7.7 Albumin 3.7 Rheumatoid Factor Cycl Citrul Peptide IgG Hepatitis A IgM Ab Hep Bs Antigen Hep Bs Antibody Hep B Core Total Ab Hepatitis C Ab (EIA) TB Test (T-Spot) Com Assessment & Plan Assessment & Plan (1) Seronegative rheumatoid arthritis: Comment: Methotrexate-04/2016- present Xeljanz 03/2020 -06/2020 - changed to Humira due to active disease Humira 06/2020- 09/2020- changed to Actemra due to active disease Actemra with methotrexate 09/2020 Change to Orencia and methotrexate July 2022 due to lack of response Restarted Humira but this was not efficacious (03/2024) Rinvoq 04/2024 Code(s): M06.00 - Rheumatoid arthritis without rheumatoid factor, unspecified site Category: Medical Plan: #Seronegative RA Patient with seronegative RA. Her disease has been very difficult to control. And she also limits us to infusions because of her fear of facilities in the post [facility] area. She has tried methotrexate, Xeljanz, Humira, Actemra and Orencia with limited response. This requires her to have repeated doses of prednisone tapers which is detrimental to her bone health, her blood pressure and her diabetes. Her joints are better today due to her Prednisone but this can not be continued penitentiary. We will try Rinvoq which is another AXEL inhibitor (different mechanism of action). Hopefully this will help Plan - Prednisone 10mg (5mg in AM and 5mg in PM) - Stop Abatacept - Stop Rinvoq - Mtx 20mg every week (4 tabs in the Am and 4 tabs in the PM) - Folic Acid - XRs Hands, wrists, knees and ankles - Continue gabapentin 800mg tid - RTC 2 months (2) intermediate methotrexate user: Code(s): Z79.899 - Other penitentiary (current) drug therapy Category: Medical Plan: #Long-term Current Use of Methotrexate Discussed with patient the benefits and risks of methotrexate for managing their rheumatic condition Benefits include reduced pain, reduced mortality, maintenance of remission and reduction of flares Risks include oral ulcers, photosensitivity, hepatotoxicity, hematologic toxicity, pneumonitis, flu-like symptoms (especially day after administration), nodulosis, lymphomas ? Limit alcohol and avoid Bactrim ? 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) use of Janus kinase inhibitor Category: Medical Plan: #Long-term Use of AXEL inhibitor (Rinvoq) Discussed with patient the benefits and risks of AXEL inhibitors for the management of the rheumatic condition Benefits include reduce pain, maintenance of remission and reduction of flares Risks include thromboembolic events, skin cancer and nonmelanoma skin cancers, other forms of cancer, cardiovascular alcohol and mortality Advise patient that they are to hold the medication and for up to 1 week after a febrile illness or an open skin wound Plan I spent 30 minutes reviewing the record and labs, seeing the patient, discussing the treatment plan and documenting in the medical record ? Medications: New upadacitinib ER (Rinvoq) 15 mg PO DAILY 90 tabs 1RF Changed From prednisone Take 4 tablets for 1 week, then take 3 tablets for 1 week, then take 2 tablets (1 in the morning and 1 in the evening) 120 tabs 1RF M06.00 - Rheumatoid arthritis without rheumatoid factor, unspecified site To prednisone Take 5mg in the morning and then 5mg in the evening 10 mg (2 x 5 mg) PO DAILY 90 days 180 tabs 1RF M06.00 - Rheumatoid arthritis without rheumatoid factor, unspecified site Discontinued abatacept (Orencia ClickJect) Discontinued Reason: Doctor's Order 125 mg subcut QWEEK 4 mL 2RF M06.00 - Rheumatoid arthritis without rheumatoid factor, unspecified site adalimumab (Humira Pen) Discontinued Reason: Doctor's Order 40 mg (0.8 mL) subcut QWEEK 2 ea 6RF M06.00 - Rheumatoid arthritis without rheumatoid factor, unspecified site, Z79.620 - intermediate (current) use of immunosuppressive biologic Coding Level of Care Code Est Pt Level 4 (35366) Complex EM visit Add On G2211 Diagnoses Seronegative rheumatoid arthritis M06.00 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
[2024-04-19 07:49] VITALS: BP 112/68; PULSE 76; O2SAT 97
== END 2024-04-19 08:19 | disposition home or self-care (01) ==
PROVIDERS: PCP Internal Medicine; Visit Provider Student in an Organized Health Care Education/Training Program
DX: M06.00 Rheumatoid arthritis without rheumatoid factor, unspecified site (principal); Z79.899 Other long term (current) drug therapy; Z79.622 Long term (current) use of Janus kinase inhibitor
CPT/HCPCS: 99214; G2211

== ENCOUNTER → 2024-04-19 08:34 | Outpatient (BNV) | payer MEDICARE, MEDICAID, SELFPAY | PROVIDERS: PCP Internal Medicine; Visit Provider Radiology Diagnostic Radiology | DX: M06.00 Rheumatoid arthritis without rheumatoid factor, unspecified site (principal) | CPT/HCPCS: 73110; 73610 ==

== ENCOUNTER 2024-06-14 07:37 | Outpatient (AMB) | payer MEDICARE, MEDICAID, SELFPAY ==
--- NOTE | 2024-06-14 07:39 | MHC.OFFVIS ---
Vital Signs 06/14/24 07:44 Height 5 ft 5 in BMI Reason not done Patient refused/unable BP 112/64 Blood Pressure Location Rt brachial Position Sitting Pulse 89 Pulse Source Pulse Oximeter Pulse Oximetry (%) 98 Oxygen Delivery Method Room Air Intake Visit Reasons: follow up Intake Note: Patient presents for follow up. Allergies No Known Allergies [No Known Allergies*] Allergy (Verified 06/14/24 07:42) Medication List - Last Reconciled 06/14/24 by Janet Madrigal MD abatacept (Orencia ClickJect) 125 mg subcut QWEEK albuterol sulfate 90 mcg/actuation (Ventolin HFA) 0 mcg inhalation albuterol sulfate mg inhalation alcohol swabs (BD Alcohol Swabs) 0 pad topical aspirin 81 mg PO DAILY atorvastatin 80 mg PO DAILY atropine 1% 1 drp ophthalmic (eye) BID blood sugar diagnostic (FreeStyle Lite Strips) As directed blood-glucose meter (FreeStyle Lite Meter kit) As directed brimonidine 0.2% 1 drp ophthalmic (eye) TID budesonide-formoterol 160-4.5 mcg/actuation (Symbicort) 2 puffs inhalation BID bupropion HCl XL 300 mg PO DAILY buspirone mg PO cholecalciferol (vitamin D3) 1,250 mcg PO QWEEK 90 days cyanocobalamin (vitamin B-12) 1,000 mcg PO DAILY docusate sodium 100 mg PO BID PRN dorzolamide-timolol 22.3-6.8 mg/mL mL ophthalmic (eye) doxepin 25 - 50 mg PO BEDTIME doxepin mg PO empagliflozin (Jardiance) 10 mg PO QAM folic acid 1 mg PO DAILY gabapentin 800 mg PO TID 90 days insulin glargine (Lantus Solostar U-100 Insulin) units subcut insulin lispro (Humalog KwikPen (U-100) Insulin) subcut lancets (FreeStyle Lancets) As directed latanoprost 0.005% 1 drp ophthalmic (eye) BEDTIME lisinopril 5 mg PO DAILY melatonin 10 mg PO BEDTIME PRN metformin 1,000 mg PO BID methotrexate sodium 20 mg (8 x 2.5 mg) PO QWEEK 90 days montelukast 10 mg PO DAILY multivitamin 1 tab PO DAILY oxycodone 1 tab PO TID PRN pen needle, diabetic (BD Ultra-Fine Mini Pen Needle) As directed polyethylene glycol 3350 (Miralax) 17 grams PO DAILY prednisolone acetate 1% 1 drp ophthalmic (eye) BID PRN prednisone 10 mg (2 x 5 mg) PO DAILY 90 days tizanidine 4 mg PO BID HPI Comments Details: Patient is a 53-year-old female morbidly obese with hypertension, hyperlipidemia, diabetes complicated by peripheral neuropathy, inflammatory arthritis/seronegative rheumatoid arthritis and fibromyalgia here today for follow up Interval History: Patient last seen 04/19/2024 with me. At that time she was resolving after a flare of her RA despite treatment. The plan was to change Orenica to Rinvoq after that visit. Unfortunately she did not get the Rinvoq Currently still on Orencia States that she feels overall better Complaining of intermittent trigger finger and restless legs in the evenings Rheumatologic History: Patient was diagnosed in 2016 with inflammatory arthritis. Notes not seen but this was likely based on elevated inflammatory markers and synovitis on examination. Her seronegative inflammatory arthritis is complicated by fibromyalgia and osteoarthritis of the knees. Methotrexate-04/2016- present Xeljanz 03/2020 -06/2020 - changed to Humira due to active disease Humira 06/2020- 09/2020- changed to Actemra due to active disease Actemra with methotrexate 09/2020 Change to Orencia and methotrexate July 2022 due to lack of response Current Rheumatology Medication(s): Prednisone 10mg (5mg in the morning and 5mg in the evening) Methotrexate 20 mg weekly Folic acid 1 mg daily Orencia 125mg weekly [facility] Medical History (Updated 06/14/24 @ 08:23 by Janet Madrigal MD) Vitamin D deficiency Family history of polymyositis Myalgia Elevated sed rate Diabetes mellitus HUSSEIN (obstructive sleep apnea) Morbid obesity Inflammatory arthritis Headache disorder History of hypothyroidism History of anemia Glaucoma Fibromyalgia Depression Degenerative disc disease Chronic pain Blind left eye Asthma Arthritis of both knees Abdominal hernia Surgical History History of hernia surgery History of section Family History Father CAD (coronary artery disease) Mother Cancer of pancreas Obesity Brother CAD (coronary artery disease) Obesity Social History Household Members: None Housing: Apartment Alcohol intake: never Comment: medicated, see MAR Patient Tobacco Use Status: Never used Tobacco e-Cigarette/Vaping Use: Never Used Current occupational status: unemployed Current occupation: right handed Review of Systems Const Details: Review of Systems Constitutional: Denies fever, chills, weight loss ENT: Denies vision changes, eye pain or eye redness, dental caries, dry mouth GI: Denies nausea, vomiting, diarrhea, abdominal pain, change in BM Pulm: Denies SOB, MENDOZA, hemoptysis, wheezing Cards: Denies chest pain, palpitations Skin: Denies Raynaud's, rash, nail changes, photosensitivity, LEARNING AND DEVELOPMENT ASSOCIATE: Denies headaches, weakness, paresthesias, recurrent falls MSK: as per HPI All other systems reviewed and are unremarkable except noted above Physical Exam Vital Signs: Last Vital Signs Pulse 89 06/14/24 07:44 BP 112/64 06/14/24 07:44 Pulse Ox 98 06/14/24 07:44 Oxygen Delivery Method Room Air 06/14/24 07:44 Vital signs reviewed Physical Examination CONSTITUITIONAL Patient alert and cooperative. Examined in wheelchair HEENT Conjunctiva and sclera clear. ?Pupils equal round and reactive to light. ?No lymphadenopathy. ? CHEST/RESPIRATORY SYSTEM Normal respiratory effort and able to speak in complete sentences. ?Clear to auscultation bilaterally. ?No crackles, rales, rhonchi, wheezes heard. CARDIAC SYSTEM Regular rate and rhythm. ?S1 and S2 heard no murmurs. ?Radial pulses intact bilaterally MSK Hands: ?Good circuits engineer strength bilaterally. No deformities noted. ?No tenderness to palpation of MCPs and PIPs bilaterally. No fullness noted to these joints. Wrists: ?Full range of motion at the wrists without pain. ?No TTP of the wrists. No swelling or fullness noted. Elbows: Full range of motion without pain. No tenderness, weakness, swelling, increased warmth or erythema. Shoulders: Full range of motion without pain. No tenderness, weakness, swelling, increased warmth or erythema. Knees: ?Full range of motion. ?No tenderness, swelling, increased warmth or erythema.? Crepitations noted bilaterally Ankles: Full range of motion. ?Bilateral pitting edema of the ankles. No TTP Feet: ?Negative squeeze test. ?No tenderness to palpation or swelling of the MTPs. Tender points:??No tenderness to palpation of the neck, shoulders, chest, elbows, hips, buttocks or knees. SKIN Skin intact without rashes. Results Reviewed Results Reviewed: Laboratory Tests 03/15/24 04/19/24 09:56 07:40 WBC 5.6 RBC 4.29 Hgb 12.2 Hct 38.0 Plt Count 176 ESR 29 H 40 H Sodium 138 Potassium 3.6 Chloride 106 Carbon Dioxide 29 BUN 13 Creatinine 0.71 Calcium 8.3 L D Total Bilirubin 0.8 AST 28 ALT 18 Alkaline Phosphatase 133 H C-Reactive Protein 0.60 H 0.89 H 25-OH Vitamin D Total 5 L Immunology labs 07/27/23 06:41 Rheumatoid Factor < 13.0 Cycl Citrul Peptide IgG <16 Infectious serologies 04/19/24 07:40 Hepatitis A IgM Ab Nonreactive Hep Bs Antigen Negative Hep Bs Antibody NONREACTIVE Hep B Core Total Ab Nonreactive Hepatitis C Ab (EIA) Nonreactive TB Test (T-Spot) Com Negative XR Bilateral Knees 04/19/2024 FINDINGS: Right knee: Marginal osteophyte formation and associated to articular surface sclerosis involving the lateral tibial plateau and lateral femoral condyle and to a lesser extent the medial femoral condyle. No acute cortical disruption or malalignment. No suprapatellar bursa joint effusion. No lytic or blastic lesions. Vascular calcifications. Left knee: Marginal osteophyte formation and lateral femoral condyle. Asymmetric joint space narrowing involving the medial compartment with associated sclerosis of the medial tibial plateau. No acute cortical disruption or malalignment. No lytic lesions. Questionable mixed calcific matrix abnormality in the proximal diaphysis metaphysis of the left tibia. IMPRESSION: Bicompartmental osteoarthrosis, right knee. Bicompartmental osteoarthrosis involving mostly the medial compartment, left knee. Probable small enchondroma, proximal metaphysis diaphysis left tibia. Atherosclerosis disease, peripheral XR Bilateral Hand/Wrist 04/19/2024 FINDINGS: Right hand and wrist: Three views of the right hand and wrist are submitted. Osseous mineralization is normal. There is no fracture or dislocation. There is ulnar negative variance with moderate degenerative change of the distal radioulnar joint. The remaining joint spaces are maintained. There are no erosions. The soft tissues are unremarkable. IMPRESSION: Ulnar negative variance with moderate degenerative change of the distal radioulnar joint. FINDINGS: Left Hand/Wrist: Three views of the left hand and wrist are submitted. Osseous mineralization is normal. There is no fracture or dislocation. There is ulnar negative variance and degenerative change of the distal radioulnar joint. The remaining joint spaces are maintained. There are no erosions. The soft tissues are unremarkable. IMPRESSION: Ulnar negative variance with degenerative change of the distal radioulnar joint. XR Bilateral Ankles 04/19/2024 FINDINGS: Left ankle Three views of the left ankle are submitted. Osseous mineralization is normal. There is no fracture or dislocation. There is slight widening of the medial aspect of the ankle mortise. The soft tissues are unremarkable. IMPRESSION: Slight widening of the medial aspect of the ankle mortise which may reflect ligamentous laxity or prior injury. FINDINGS: Right ankle Three views of the right ankle are submitted. Osseous mineralization is normal. There is no fracture or dislocation. The ankle mortise is maintained. There is mild degenerative change of the talonavicular joint. There is a small plantar calcaneal spur. There are vascular calcifications. IMPRESSION: Mild degenerative change of the talonavicular joint. Assessment & Plan Assessment & Plan (1) Seronegative rheumatoid arthritis: Comment: Methotrexate-04/2016- present Xeljanz 03/2020 -06/2020 - changed to Humira due to active disease Humira 06/2020- 09/2020- changed to Actemra due to active disease Actemra with methotrexate 09/2020 Change to Orencia and methotrexate July 2022 due to lack of response Restarted Humira but this was not efficacious (03/2024) Rinvoq 04/2024. Did not start Continued Orencia and this had been efficacious 06/2024: Orencia, Mtx and Pred 10mg Code(s): M06.00 - Rheumatoid arthritis without rheumatoid factor, unspecified site Category: Medical Plan: #Seronegative RA Patient with seronegative RA here today for follow up Was not able to start the Rinvoq but continued the Abatacept Joints looked good on exam today with no synovitis and no swelling It seems that the Abatacept has finally taken effect! We will continue this medication and try to decrease the prednisone slowly and hopefully she remains without flares Plan - Decrease Prednisone 7.5mg (5mg in AM and 2.5mg in PM) - Continue Abatacept 125mg SC - Mtx 20mg every week (4 tabs in the Am and 4 tabs in the PM) - Folic Acid 1 mg daily - Continue gabapentin 800mg tid - Labs today: CBC, CMP, ESR, CRP - RTC 3 months (2) Vitamin D deficiency: Code(s): E55.9 - Vitamin D deficiency, unspecified Category: Medical Plan: #Severe Vit D deficiency Patient with severe vit D deficiency Started on weekly Vitamin D supplementation Plan - Vitamin D 14281 U weekly PO - Check Vit D today (3) Polyarticular osteoarthritis: Code(s): M15.9 - Polyosteoarthritis, unspecified Plan: #Polyarticular OA Patient with polyarticular osteoarthritis as by her x-rays. This may be contributing to her pain. No evidence of erosions on the x-rays done in April. Seeing as everything from her rheumatoid arthritis is currently under control I think moving forward we need to be able to distinguish between her OA and RA pain. 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 Limit alcohol and avoid Bactrim ? Monitoring: ?CBC, BMP, LFTs every 3-4 months and hepatitis serologies as needed (5) On abatacept therapy: Code(s): Z79.899 - Other bulk sugar handler (current) drug therapy Plan: #Long-term Use of Abatacept Discussed with the patient the benefits and risks of Abatacept for the management of the rheumatic condition Benefits include reduce pain, maintenance of remission and reduction of flares as well as ?progression of the disease Risks include injection sites/infusion reactions, serious infections (such as bacterial infections, opportunistic infections), malignancy Recommended rotating injection sites, and holding medication during and for up to 1 week after resolution of a febrile illness or open skin wound Plan I spent 30 minutes reviewing the record and labs, seeing the patient, discussing the treatment plan and documenting in the medical record ? Orders: Orders Complete Blood Count Auto Diff Today M06.00 - Rheumatoid arthritis without rheumatoid factor, unspecified site, Z79.899 - Other bulk sugar handler (current) drug therapy C Reactive Protein Today M06.00 - Rheumatoid arthritis without rheumatoid factor, unspecified site, Z79.899 - Other senior living (current) drug therapy Comprehensive Met. Panel Today M06.00 - Rheumatoid arthritis without rheumatoid factor, unspecified site, Z79.899 - Other senior living (current) drug therapy Erythrocyte Sedimentation Rate Today M06.00 - Rheumatoid arthritis without rheumatoid factor, unspecified site, Z79.899 - Other bulk sugar handler (current) drug therapy Vitamin D 25-OH Total Today E55.9 - Vitamin D deficiency, unspecified Medications: Changed From prednisone Take 5mg in the morning and then 5mg in the evening 10 mg (2 x 5 mg) PO DAILY 90 days 180 tabs 1RF M06.00 - Rheumatoid arthritis without rheumatoid factor, unspecified site To prednisone Take 5mg in the morning and then 2.5mg in the evening 7.5 mg (1.5 x 5 mg) PO DAILY 90 days 135 tabs 1RF M06.00 - Rheumatoid arthritis without rheumatoid factor, unspecified site Refilled abatacept (Orencia ClickJect) 125 mg subcut QWEEK 4 mL 3RF M06.00 - Rheumatoid arthritis without rheumatoid factor, unspecified site abatacept (Orencia ClickJect) 125 mg subcut QWEEK 4 mL 2RF M06.00 - Rheumatoid arthritis without rheumatoid factor, unspecified site Coding Level of Care Code Est Pt Level 4 (33194) Complex EM visit Add On G2211 Diagnoses Seronegative rheumatoid arthritis M06.00 Vitamin D deficiency E55.9 Polyarticular osteoarthritis M15.9 long term care pharmacist methotrexate user Z79.899 On abatacept therapy Z79.
--- OUTSIDE RECORDS SUMMARY | 2024-06-14 07:40 | XMS_ITS | Clinical Summary ---
Author Organization [facility] Address [address] [place] [address] Care Team Providers Care Lucerne Farmer Name Role Phone Elsa Peña MD Primary Care Provider [phone] Social History Tobacco Use Types Packs/Day Years Used Date Smoking Tobacco: Never Assessed Comments Unknown Sex and Gender Information Value Date Recorded Sex Assigned at Not on file Legal Sex Female 5:07 AM EST Gender Identity Not on file Sexual Orientation Not on file Plan of Treatment Health Maintenance Due Date Last Done Comments DTaP,Tdap,and Td Vaccines (1 - Tdap) 1988 Hepatitis B Vaccines (1 of 3 - 19+ 3-dose series) 1988 Cervical Cancer Screening: Pap Smear 1990 Pneumococcal Vaccine: 50+ Years (1 of 1 - PCV) 06/04/2019 Zoster Vaccines (1 of 2) 06/04/2019 Colorectal Cancer Screening: Colonoscopy 03/08/2022 Depression Screening 03/08/2022 HIV Screening 03/08/2022 Hepatitis C Screening 03/08/2022 Social Influencers of Health Screening 03/08/2022 COVID-19 Vaccine (2023- season) 2023 Influenza Vaccine (#1) 2023 Breast Cancer Screening 08/18/2024 08/19/19 23, 08/04/2021, 07/28/2020, Additional history exists HIB Vaccines Aged Out No longer eligi ble based on patient's age to complete this topic HPV Vaccines Aged Out No longer eligi ble based on patient's age to complete this topic Hepatitis A Vaccines Aged Out No long er eligible based on patient's age to complete this topic IPV Vaccines Aged Out No longer eligi ble based on patient's age to complete this topic MMR Vaccines Aged Out No longer eligi ble based on patient's age to complete this topic Meningococcal ACWY Vaccine Aged Out N o longer eligible based on patient's age to complete this topic Meningococcal B Vacine Aged Out No lo nger eligible based on patient's age to complete this topic Pneumococcal Vaccine: Pediatrics (0 to 5 Years) and At-Risk Patients (6 to 64 Years) Aged Out No longer eligible based on patient's age to complete this topic RSV Immunization Patients Under 20 months Aged Out No longer eligible based on patient's age to complete this topic Varicella Vaccines Aged Out No longer eligible based on patient's age to complete this topic Procedures Procedure Name Priority Date/Time Associated Diagnosis Comments [facility] SCREENING DIGITAL Routine 08/18/2022 7:52 AM EDT Encounter for screening mammogram for malignant neoplasm of breast from Last 3 Months or Most Recently Relevant to Health Maintenance Results * [facility] SCREENING [facility]IGITAL (08/18/2022 7:52 AM EDT) Anatomical Region Laterality Modality Mammography 08/18/2022 7:05 AM EDT Narrative 08/18/2022 7:52 AM EDT [facility] Diagnostic Imaging Department [address] [place] [address] Patient: ??LAVERN MERRILL ?/Age/Sex: 1970 - 52 - F Unit#: ??[id number] ? Location/Status: ??SPDIMAM/REG CLI ? Mnemonic/Ordering Site: ??DIGSC/SPMAM Ordering Physician: ??ITA MANLEY MD [facility] Screening Digital - 08/18/22727 HISTORY: The patient is a 52-year-old female presenting for routine screening mammography. FINDINGS: ??CC and MLO views of both breasts were obtained using full field digital mammography in the InnoCCographe 2000-D unit. Computer aided detection with the iCAD Second Look 7.2-H was employed. In addition, breast tomosynthesis in MLO projection was performed. The breasts are again seen to be largely fatty-replaced (the breasts are almost entirely fatty, category A density, as calculated by [employer] software), as also demonstrated on prior studies most recently 08/04/2021 and most remotely 03/20/2015. ??A few scattered benign calcifications are again seen. ??There is no suspicious cluster of microcalcifications, mass, or area of architectural distortion. There is no skin thickening or nipple retraction. IMPRESSION: No mammographic evidence of malignancy. A negative mammogram in the presence of a clinically suspicious palpable abnormality does not preclude the possibility of malignancy or alter the indications for biopsy. BIRADS Code Class 2: ??Benign Finding PQRI CPT II 3342F Code 86793, 23005 PQRI 225 CPT II 7025F Dictating Physician: ??WANG MONTERO MD Electronically Signed by: ??WANG MONTERO MD Dic Date/Time: ??08/18/22 0748 Sign date/Time: ??08/18/22 0752 Procedure Note Wang Montero MD - 05/07/2023 [facility] Diagnostic Imaging Department [address] [place], [place] [id number] Patient: LAVERN MERRILL./Age/Sex: 1970 - 52 - F Unit#: [id number] Location/Status: SPDIMAM/REG CLI Mnemonic/Ordering Site: [facility] Ordering Physician: ITA MANLEY MD Mounika Screening Digital - 08/18/22727 HISTORY: The patient is a 52-year-old female presenting for routinescreening mammography. FINDINGS: CC and MLO views of both breasts were obtained using fullfield digital mammography in the InnoCCographe 2000-D unit. Computer aideddetection with the [employer] Second Look 7.2-H was employed. In addition, breasttomosynthesis in MLO projection was performed. The breasts are again seen to be largely fatty-replaced (the breasts arealmost entirely fatty, category A density, as calculated by [employer]), as also demonstrated on prior studies most recently 08/04/2021 and mostremotely 03/20/2015. A few scattered benign calcifications are again seen. Thereis no suspicious cluster of microcalcifications, mass, or area ofarchitectural distortion. There is no skin thickening or nipple retraction. IMPRESSION: No mammographic evidence of malignancy. A negative mammogram in the presence of a clinically suspicious palpable abnormality does not preclude the possibility of malignancy or alter the indications for biopsy. BIRADS Code Class 2: Benign Finding PQRI CPT II 3342F Code 31089, 02410 PQRI 225 CPT II 7025F Dictating Physician: WANG MONTERO MD Electronically Signed by: WANG MONTERO MD Dic Date/Time: 08/18/22 0748 Sign date/Time: 08/18/22 0752 Ita Manley MD IMG BI PROCEDURES Final Res ult from Last 3 Months or Most Recently Relevant to Health Maintenance Care Teams Luc[place] Farmer Relationship Specialty Start Date End Date Elsa Peña MD [facility] Doctors MYRANDA Garcia [id number] PCP - General 07/03/09
[2024-06-14 07:44] VITALS: BP 112/64; PULSE 89; O2SAT 98
== END 2024-06-14 08:18 | disposition home or self-care (01) ==
LOC: HO.RHE 07:38
PROVIDERS: PCP Internal Medicine; Visit Provider Student in an Organized Health Care Education/Training Program
DX: M06.00 Rheumatoid arthritis without rheumatoid factor, unspecified site (principal); E55.9 Vitamin D deficiency, unspecified; M15.9 Polyosteoarthritis, unspecified; Z79.899 Other long term (current) drug therapy
CPT/HCPCS: 99214; G2211

== ENCOUNTER 2024-06-14 08:21 | Outpatient (REF) | payer MEDICARE, MEDICAID, SELFPAY ==
--- OUTSIDE RECORDS SUMMARY | 2024-06-14 08:45 | XMS_ITS | Clinical Summary ---
Author Organization [facility] Address [address] [place] [address] Care Team Providers Care Poultry Dressing Worker Name Role Phone Elsa Peña MD Primary Care Provider [phone] Social History Tobacco Use Types Packs/Day Years [...] Procedure Name Priority Date/Time Associated Diagnosis Comments [facility] SCREENING DIGITAL Routine 08/18/2022 7:52 AM EDT Encounter for screening mammogram for malignant neoplasm of breast from Last 3 Months or Most Recently Relevant to Health Maintenance Results * [facility] SCREENING DIGITAL (08/18/2022 7:52 AM EDT) Anatomical Region Laterality Modality Mammography 08/18/2022 7:05 AM EDT Narrative 08/18/2022 7:52 AM EDT [facility] Diagnostic Imaging Department [address] [place] [address] Patient: ??LAVERN MERRILL ?/Age/Sex: 1970 - 52 - F Unit#: ??[id number] ? Location/Status: ??SPDIMAM/REG CLI ? Mnemonic/Ordering Site: ??DIGSC/SPMAM Ordering Physician: ??ITA MANLEY MD Mounika Screening Digital - 08/18/22727 HISTORY: The patient is a 52-year-old female presenting for routine screening mammography. FINDINGS: ??CC and MLO views of both breasts were obtained using full field digital mammography in the [employer]he 2000-D unit. Computer aided detection with the iCAD Second Look 7.2-H was employed. In addition, breast tomosynthesis in MLO projection was performed. The breasts are again seen to be largely fatty-replaced (the breasts are almost entirely fatty, category A density, as calculated by coresystemsa software), as also demonstrated on prior studies [...] ??Benign Finding PQRI CPT II 3342F Code 40743, 45138 PQRI 225 CPT II 7025F Dictating Physician: ??WANG MONTERO MD Electronically Signed by: ??WANG MONTERO MD Dic Date/Time: ??08/18/22 0748 Sign date/Time: ??08/18/22 0752 Procedure Note Wang Montero MD - 05/07/2023 [facility] Diagnostic Imaging Department [address] [place], [place] [address] Patient: LAVERN MERRILL./Age/Sex: 1970 - 52 - F Unit#: [id number] Location/Status: SPDIMAM/REG CLI Mnemonic/Ordering Site: [facility] Ordering Physician: ITA MANLEY MD Mounika Screening Digital - 08/18/22727 HISTORY: The patient is a 52-year-old female presenting for routinescreening mammography. FINDINGS: CC and MLO views of both breasts were obtained using fullfield digital mammography in the [employer]he 2000-D unit. Computer aideddetection with the Site Lock Second Look 7.2-H was employed. In addition, [...] Benign Finding PQRI CPT II 3342F Code 10529, 78003 PQRI 225 CPT II 7025F Dictating Physician: WANG MONTERO MD Electronically Signed by: WANG MONTERO MD Dic Date/Time: 08/18/22 0748 Sign date/Time: 08/18/22 0752 Ita Manley MD IMG BI PROCEDURES Final Res ult from Last 3 Months or Most Recently Relevant to Health Maintenance Care Teams Poultry Dressing Worker Relationship Specialty Start Date End Date Elsa Peña MD [facility] Doctors MYRANDA Garcia [phone] PCP - General 07/03/09
[2024-06-14 10:51] LABS: MANUAL DIFF FLAG NO
[2024-06-14 11:11] LABS: Basophils Absolute Auto 0.1 X10*3/uL (0.0-0.2); Basophils Percent Auto 0.7 % (0-2); Eosinophils Absolute Auto 0.2 X10*3/uL (0.0-0.4); Eosinophils Percent Auto 3.1 % (0-4); Hemoglobin 11.5 g/dl (12.0-16.0); Imm Gran Abs Auto 0.01 X10*3/uL (0.00-0.03); Imm Gran Pct Auto 0.1 % (0.0-0.4); Lymphocytes Absolute Auto 1.8 X10*3/uL (1.2-4.9); Lymphocytes Percent Auto 26.8 % (20-40); Mean Corpuscular HGB Conc 31.1 g/dl (31.0-35.0); Mean Corpuscular Hemoglobin 27.3 pg (27.0-33.0); Mean Corpuscular Volume 87.7 fL (80.0-98.0); Mean Platelet Volume 9.9 fL (9.4-12.3); Monocytes Absolute Auto 0.4 X10*3/uL (0.1-1.2); Monocytes Percent Auto 6.1 % (2-11); Neutrophils Absolute Auto 4.2 x10*3/uL (2.0-8.3); Neutrophils Percent Auto 63.2 % (45-73); Platelet Count 180 X10*3/uL (160-400); Red Blood Count 4.22 X10*6/uL (4.20-5.50); Red Cell Distribution Width 12.8 % (11.0-16.0); White Blood Count 6.7 X10*3/uL (4.8-10.8)
[2024-06-14 11:45] LABS: Alanine Aminotransferase 20 U/L (0-31); Albumin Level 3.6 g/dL (3.5-5.0); Alkaline Phosphatase 121 U/L (39-117); Anion Gap 13 (12-20); Aspartate Amino Transferase 30 U/L (5-31); Bilirubin Total 0.8 mg/dL (0.0-1.0); Blood Urea Nitrogen 16 mg/dL (9-16); C Reactive Protein 0.44 mg/dL (< or = 0.50); Calcium 8.7 mg/dL (8.4-10.2); Carbon Dioxide 24 mmol/L (22-29); Chloride 105 mmol/L (96-108); Estimated Glomerular Filt Rate > 60; Glucose Random 152 mg/dL (60-115); Potassium 3.7 mmol/L (3.3-5.1); Sodium 138 mmol/L (135-145); Total Protein 8.1 g/dL (6.5-8.0)
[2024-06-14 11:46] LABS: Erythrocyte Sedimentation Rate 39 MM/HR (0-20)
[2024-06-14 11:52] LABS: Vitamin D 25-OH Total 10.3 ng/mL (>30)
== END 2024-06-14 08:22 | disposition home or self-care (01) ==
LOC: HO.10HDL 08:21
PROVIDERS: Visit Provider Student in an Organized Health Care Education/Training Program
DX: M06.00 Rheumatoid arthritis without rheumatoid factor, unspecified site (principal); E55.9 Vitamin D deficiency, unspecified; Z79.899 Other long term (current) drug therapy; M15.9 Polyosteoarthritis, unspecified
CPT/HCPCS: 36415; 80053; 82306; 85025; 85652; 86140; 99212

== ENCOUNTER 2024-09-14 07:32 | Outpatient (AMB) | payer MEDICARE, MEDICAID, SELFPAY ==
--- NOTE | 2024-09-14 07:37 | MHC.OFFVIS ---
Vital Signs 09/14/24 07:55 Height 5 ft 5 in BMI Reason not done Patient refused/unable BP 112/70 Blood Pressure Location Lt brachial Position Sitting Pulse 80 Pulse Source Pulse Oximeter Pulse Oximetry (%) 98 Oxygen Delivery Method Room Air Intake Visit Reasons: follow up Intake Note: Patient presents for OA/RA follow up. Allergies No Known Allergies [No Known Allergies*] Allergy (Verified 09/14/24 07:47) Medication List - Last Reconciled 09/14/24 by Janet Madrigal MD abatacept (Orencia ClickJect) 125 mg subcut QWEEK albuterol sulfate 90 mcg/actuation (Ventolin HFA) 0 mcg inhalation albuterol sulfate mg inhalation alcohol swabs (BD Alcohol Swabs) 0 pad topical aspirin 81 mg PO DAILY atorvastatin 80 mg PO DAILY atropine 1% 1 drp ophthalmic (eye) BID blood sugar diagnostic (FreeStyle Lite Strips) As directed blood-glucose meter (FreeStyle Lite Meter kit) As directed brimonidine 0.2% 1 drp ophthalmic (eye) TID budesonide-formoterol 160-4.5 mcg/actuation (Symbicort) 2 puffs inhalation BID bupropion HCl XL 300 mg PO DAILY buspirone mg PO cholecalciferol (vitamin D3) 1,250 mcg PO QWEEK 90 days cyanocobalamin (vitamin B-12) 1,000 mcg PO DAILY docusate sodium 100 mg PO BID PRN dorzolamide-timolol 22.3-6.8 mg/mL mL ophthalmic (eye) doxepin 25 - 50 mg PO BEDTIME doxepin mg PO empagliflozin (Jardiance) 10 mg PO QAM folic acid 1 mg PO DAILY gabapentin 800 mg PO TID insulin glargine (Lantus Solostar U-100 Insulin) units subcut insulin lispro (Humalog KwikPen (U-100) Insulin) subcut lancets (FreeStyle Lancets) As directed latanoprost 0.005% 1 drp ophthalmic (eye) BEDTIME lisinopril 5 mg PO DAILY melatonin 10 mg PO BEDTIME PRN metformin 1,000 mg PO BID methotrexate sodium 20 mg (8 x 2.5 mg) PO QWEEK 90 days montelukast 10 mg PO DAILY multivitamin 1 tab PO DAILY oxycodone 1 tab PO TID PRN pen needle, diabetic (BD Ultra-Fine Mini Pen Needle) As directed polyethylene glycol 3350 (Miralax) 17 grams PO DAILY prednisolone acetate 1% 1 drp ophthalmic (eye) BID PRN prednisone 7.5 mg (1.5 x 5 mg) PO DAILY 90 days tizanidine 4 mg PO BID HPI Comments Details: Patient is a 53-year-old female morbidly obese with hypertension, hyperlipidemia, diabetes complicated by peripheral neuropathy, inflammatory arthritis/seronegative rheumatoid arthritis and fibromyalgia here today for follow up Interval History: Patient last seen 06/14/2024 with me. That she was still on Orencia had not gotten her Rinvoq. But notes that she was feeling overall better Orencia and methotrexate was continued and her prednisone was reduced Today, She continues to do well Has some bad days and good days On her bad days she notes that she has overall bodyaches Denies prolonged AM stiffness and joint swelling Currently gets home PT Rheumatologic History: Patient was diagnosed in 2016 with inflammatory arthritis. Notes not seen but this was likely based on elevated inflammatory markers and synovitis on examination. Her seronegative inflammatory arthritis is complicated by fibromyalgia and osteoarthritis of the knees. Methotrexate-04/2016- present Xeljanz 03/2020 -06/2020 - changed to Humira due to active disease Humira 06/2020- 09/2020- changed to Actemra due to active disease Actemra with methotrexate 09/2020 Change to Orencia and methotrexate July 2022 due to lack of response Current Rheumatology Medication(s): Prednisone 7.5mg (5mg in the morning and 2.5mg in the evening) Methotrexate 20 mg weekly Folic acid 1 mg daily Orencia 125mg weekly Vit D [id number] every week [facility] Medical History (Updated 06/14/24 @ 08:23 by Janet Madrigal MD) Vitamin D deficiency Family history of polymyositis Myalgia Elevated sed rate Diabetes mellitus HUSSEIN (obstructive sleep apnea) Morbid obesity Inflammatory arthritis Headache disorder History of hypothyroidism History of anemia Glaucoma Fibromyalgia Depression Degenerative disc disease Chronic pain Blind left eye Asthma Arthritis of both knees Abdominal hernia Surgical History History of hernia surgery History of section Family History Father CAD (coronary artery disease) Mother Cancer of pancreas Obesity Brother CAD (coronary artery disease) Obesity Other Family history of polymyositis Social History Household Members: None Housing: Apartment Alcohol intake: never Comment: medicated, see MAR Patient Tobacco Use Status: Never used Tobacco e-Cigarette/Vaping Use: Never Used Current occupational status: unemployed Current occupation: right handed Review of Systems Const Details: Review of Systems Constitutional: Denies fever, chills, weight loss ENT: Denies vision changes, eye pain or eye redness, dental caries, dry mouth GI: Denies nausea, vomiting, diarrhea, abdominal pain, change in BM Pulm: Denies SOB, MENDOZA, hemoptysis, wheezing Cards: Denies chest pain, palpitations Skin: Denies Raynaud's, rash, nail changes, photosensitivity, 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 Examined in wheelchair HEENT Conjunctiva and sclera clear. ?Pupils equal round and reactive to light. ?No lymphadenopathy. ? CHEST/RESPIRATORY SYSTEM Normal respiratory effort and able to speak in complete sentences. ?Clear to auscultation bilaterally. ?No crackles, rales, rhonchi, wheezes heard. CARDIAC SYSTEM Regular rate and rhythm. ?S1 and S2 heard no murmurs. ?Radial pulses intact bilaterally MSK Hands: ?Good shellac polisher strength bilaterally. No deformities noted. ?No tenderness to palpation of MCPs and PIPs bilaterally. No fullness noted to these joints. Wrists: ?Full range of motion at the wrists without pain. ?No TTP of the wrists. No swelling or fullness noted. Elbows: Full range of motion without pain. No tenderness, weakness, swelling, increased warmth or erythema. Shoulders: Full range of motion without pain. No tenderness, weakness, swelling, increased warmth or erythema. Knees: ?Full range of motion. ?No tenderness, swelling, increased warmth or erythema.? Crepitations noted bilaterally Ankles: Full range of motion. ?Bilateral pitting edema of the ankles. No TTP Feet: ?Negative squeeze test. ?No tenderness to palpation or swelling of the MTPs. Tender points:??No tenderness to palpation of the neck, shoulders, chest, elbows, hips, buttocks or knees. SKIN Skin intact without rashes. Results Reviewed Results Reviewed: Laboratory Tests 04/19/24 06/14/24 07:40 08:25 WBC 6.7 RBC 4.22 Hgb 11.5 L Hct 37.0 Plt Count 180 ESR 40 H 39 H Sodium 138 Potassium 3.7 Chloride 105 Carbon Dioxide 24 BUN 16 Creatinine 0.74 AST 30 ALT 20 Alkaline Phosphatase 121 H C-Reactive Protein 0.89 H 0.44 25-OH Vitamin D Total 5 L 10.3 L Immunology labs 07/27/23 06:41 Rheumatoid Factor < 13.0 Cycl Citrul Peptide IgG <16 Infectious serologies 04/19/24 07:40 Hepatitis A IgM Ab Nonreactive Hep Bs Antigen Negative Hep Bs Antibody NONREACTIVE Hep B Core Total Ab Nonreactive Hepatitis C Ab (EIA) Nonreactive TB Test (T-Spot) Com Negative XR Bilateral Knees 04/19/2024 FINDINGS: Right knee: Marginal osteophyte formation and associated to articular surface sclerosis involving the lateral tibial plateau and lateral femoral condyle and to a lesser extent the medial femoral condyle. No acute cortical disruption or malalignment. No suprapatellar bursa joint effusion. No lytic or blastic lesions. Vascular calcifications. Left knee: Marginal osteophyte formation and lateral femoral condyle. Asymmetric joint space narrowing involving the medial compartment with associated sclerosis of the medial tibial plateau. No acute cortical disruption or malalignment. No lytic lesions. Questionable mixed calcific matrix abnormality in the proximal diaphysis metaphysis of the left tibia. IMPRESSION: Bicompartmental osteoarthrosis, right knee. Bicompartmental osteoarthrosis involving mostly the medial compartment, left knee. Probable small enchondroma, proximal metaphysis diaphysis left tibia. Atherosclerosis disease, peripheral XR Bilateral Hand/Wrist 04/19/2024 FINDINGS: Right hand and wrist: Three views of the right hand and wrist are submitted. Osseous mineralization is normal. There is no fracture or dislocation. There is ulnar negative variance with moderate degenerative change of the distal radioulnar joint. The remaining joint spaces are maintained. There are no erosions. The soft tissues are unremarkable. IMPRESSION: Ulnar negative variance with moderate degenerative change of the distal radioulnar joint. FINDINGS: Left Hand/Wrist: Three views of the left hand and wrist are submitted. Osseous mineralization is normal. There is no fracture or dislocation. There is ulnar negative variance and degenerative change of the distal radioulnar joint. The remaining joint spaces are maintained. There are no erosions. The soft tissues are unremarkable. IMPRESSION: Ulnar negative variance with degenerative change of the distal radioulnar joint. XR Bilateral Ankles 04/19/2024 FINDINGS: Left ankle Three views of the left ankle are submitted. Osseous mineralization is normal. There is no fracture or dislocation. There is slight widening of the medial aspect of the ankle mortise. The soft tissues are unremarkable. IMPRESSION: Slight widening of the medial aspect of the ankle mortise which may reflect ligamentous laxity or prior injury. FINDINGS: Right ankle Three views of the right ankle are submitted. Osseous mineralization is normal. There is no fracture or dislocation. The ankle mortise is maintained. There is mild degenerative change of the talonavicular joint. There is a small plantar calcaneal spur. There are vascular calcifications. IMPRESSION: Mild degenerative change of the talonavicular joint. Assessment & Plan Assessment & Plan (1) Seronegative rheumatoid arthritis: Comment: Methotrexate-04/2016- present Xeljohnz 03/2020 -06/2020 - changed to Humira due to active disease Humira 06/2020- 09/2020- changed to Actemra due to active disease Actemra with methotrexate 09/2020 Change to Orencia and methotrexate July 2022 due to lack of response Restarted Humira but this was not efficacious (03/2024) Rinvoq 04/2024. Did not start Continued Orencia and this had been efficacious 06/2024: Orencia, Mtx and Pred 10mg Code(s): M06.00 - Rheumatoid arthritis without rheumatoid factor, unspecified site Category: Medical Plan: #Seronegative RA Patient is a 54y.o. female with seronegative RA here today for follow up Currently in remission on Orencia and methotrexate Joints looked good on exam today with no synovitis and no swelling We will continue this medication and try to decrease the prednisone slowly and hopefully she remains without flares Plan - Decrease Prednisone 5mg (2.5mg in AM and 2.5mg in PM) - Continue Abatacept 125mg SC - Mtx 20mg every week (4 tabs in the Am and 4 tabs in the PM) - Folic Acid 1 mg daily - Continue gabapentin 800mg tid - Labs today: CBC, CMP, ESR, CRP - RTC 3 months (2) Vitamin D deficiency: Code(s): E55.9 - Vitamin D deficiency, unspecified Category: Medical Plan: #Severe Vit D deficiency Patient with severe vit D deficiency Weekly Vitamin D supplementation Plan - Vitamin D 02652 U weekly PO - Check Vit D today (3) Polyarticular osteoarthritis: Code(s): M15.9 - Polyosteoarthritis, unspecified Plan: #Polyarticular OA Patient with polyarticular osteoarthritis as by her x-rays. This may be contributing to her pain. No evidence of erosions on the x-rays done in April. (4) [facility] methotrexate user: Code(s): Z79.899 - Other [facility] (current) drug therapy Category: Medical Plan: #Long-term Current Use of Methotrexate Discussed with patient the benefits and risks of methotrexate for managing their rheumatic condition Benefits include reduced pain, reduced mortality, maintenance of remission and reduction of flares Risks include oral ulcers, photosensitivity, hepatotoxicity, hematologic toxicity, pneumonitis, flu-like symptoms (especially day after administration), nodulosis, lymphomas ? Limit alcohol and avoid Bactrim ? 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 Plan: #Long-term Use of Abatacept Discussed with the patient the benefits and risks of Abatacept for the management of the rheumatic condition Benefits include reduce pain, maintenance of remission and reduction of flares as well as ?progression of the disease Risks include injection sites/infusion reactions, serious infections (such as bacterial infections, opportunistic infections), malignancy Recommended rotating injection sites, and holding medication during and for up to 1 week after resolution of a febrile illness or open skin wound Plan I spent 30 minutes reviewing the record and labs, seeing the patient, discussing the treatment plan and documenting in the medical record ? Orders: Orders Complete Blood Count Auto Diff Today E55.9 - Vitamin D deficiency, unspecified, M06.00 - Rheumatoid arthritis without rheumatoid factor, unspecified site Comprehensive Met. Panel Today E55.9 - Vitamin D deficiency, unspecified, M06.00 - Rheumatoid arthritis without rheumatoid factor, unspecified site Erythrocyte Sedimentation Rate Today E55.9 - Vitamin D deficiency, unspecified, M06.00 - Rheumatoid arthritis without rheumatoid factor, unspecified site Vitamin D 25-OH Total Today E55.9 - Vitamin D deficiency, unspecified, M06.00 - Rheumatoid arthritis without rheumatoid factor, unspecified site C Reactive Protein Today E55.9 - Vitamin D deficiency, unspecified, M06.00 - Rheumatoid arthritis without rheumatoid factor, unspecified site Coding Level of Care Code Est Pt Level 4 (72198) Complex EM visit Add On G2211 Diagnoses Seronegative rheumatoid arthritis M06.00 Vitamin D deficiency E55.9 Polyarticular osteoarthritis M15.9 [facility] methotrexate user Z79.899 On abatacept therapy Z79.899
[2024-09-14 07:55] VITALS: BP 112/70; PULSE 80; O2SAT 98
== END 2024-09-14 08:17 | disposition home or self-care (01) ==
LOC: HO.RHE 07:33
PROVIDERS: PCP Internal Medicine; Visit Provider Student in an Organized Health Care Education/Training Program
DX: M06.00 Rheumatoid arthritis without rheumatoid factor, unspecified site (principal); E55.9 Vitamin D deficiency, unspecified; M15.9 Polyosteoarthritis, unspecified; Z79.899 Other long term (current) drug therapy
CPT/HCPCS: 99214; G2211

== ENCOUNTER → 2024-09-14 07:32 | Outpatient (BNVA) | payer MEDICARE, MEDICAID, SELFPAY | PROVIDERS: PCP Internal Medicine; Visit Provider Student in an Organized Health Care Education/Training Program | DX: M06.00 Rheumatoid arthritis without rheumatoid factor, unspecified site (principal); E55.9 Vitamin D deficiency, unspecified; M15.9 Polyosteoarthritis, unspecified; Z79.82 Long term (current) use of aspirin; Z79.4 Long term (current) use of insulin; Z79.84 Long term (current) use of oral hypoglycemic drugs; Z79.891 Long term (current) use of opiate analgesic; Z79.52 Long term (current) use of systemic steroids; Z79.899 Other long term (current) drug therapy | CPT/HCPCS: 99212 ==

== ENCOUNTER 2024-09-14 08:20 | Outpatient (REF) | payer MEDICARE, MEDICAID, SELFPAY ==
[2024-09-14 09:47] LABS: MANUAL DIFF FLAG NO
[2024-09-14 10:00] LABS: Basophils Percent Auto 0.5 % (0-2); Eosinophils Absolute Auto 0.2 X10*3/uL (0.0-0.4); Eosinophils Percent Auto 2.6 % (0-4); Hematocrit 38.5 % (37.0-47.0); Hemoglobin 12.2 g/dl (12.0-16.0); Imm Gran Abs Auto 0.01 X10*3/uL (0.00-0.03); Imm Gran Pct Auto 0.2 % (0.0-0.4); Lymphocytes Absolute Auto 1.3 X10*3/uL (1.2-4.9); Lymphocytes Percent Auto 21.2 % (20-40); Mean Corpuscular HGB Conc 31.7 g/dl (31.0-35.0); Mean Corpuscular Hemoglobin 27.7 pg (27.0-33.0); Mean Corpuscular Volume 87.5 fL (80.0-98.0); Mean Platelet Volume 10.1 fL (9.4-12.3); Monocytes Absolute Auto 0.5 X10*3/uL (0.1-1.2); Monocytes Percent Auto 7.3 % (2-11); Neutrophils Absolute Auto 4.2 x10*3/uL (2.0-8.3); Neutrophils Percent Auto 68.2 % (45-73); Platelet Count 182 X10*3/uL (160-400); Red Cell Distribution Width 13.2 % (11.0-16.0); White Blood Count 6.1 X10*3/uL (4.8-10.8)
[2024-09-14 10:35] LABS: Alanine Aminotransferase 26 U/L (0-31); Albumin Level 4.1 g/dL (3.5-5.0); Alkaline Phosphatase 100 U/L (39-117); Anion Gap 14 (12-20); Aspartate Amino Transferase 30 U/L (5-31); Bilirubin Total 1.7 mg/dL (0.0-1.0); Blood Urea Nitrogen 16 mg/dL (9-16); C Reactive Protein 1.73 mg/dL (< or = 0.50); Calcium 9.8 mg/dL (8.4-10.2); Carbon Dioxide 28 mmol/L (22-29); Chloride 103 mmol/L (96-108); Estimated Glomerular Filt Rate > 60; Glucose Random 140 mg/dL (60-115); Potassium 3.7 mmol/L (3.3-5.1); Sodium 141 mmol/L (135-145); Total Protein 7.9 g/dL (6.5-8.0)
[2024-09-14 10:40] LABS: Vitamin D 25-OH Total 53.7 ng/mL (>30)
[2024-09-14 10:43] LABS: Erythrocyte Sedimentation Rate 43 MM/HR (0-20)
== END 2024-09-14 08:21 | disposition home or self-care (01) ==
LOC: HO.10HDL 08:20
PROVIDERS: Visit Provider Student in an Organized Health Care Education/Training Program
DX: E55.9 Vitamin D deficiency, unspecified (principal); M06.00 Rheumatoid arthritis without rheumatoid factor, unspecified site
CPT/HCPCS: 36415; 80053; 82306; 85025; 85652; 86140

== ENCOUNTER 2025-01-11 07:20 | Outpatient (AMB) | payer MEDICARE, MEDICAID, SELFPAY ==
--- NOTE | 2025-01-11 07:31 | A.OFFVIS_ITS ---
Vital Signs 01/11/25 07:36 Height 5 ft 5 in BMI Reason not done Patient refused/unable BP 115/74 Blood Pressure Location Rt brachial Position Sitting Pulse 88 Pulse Oximetry (%) 98 Oxygen Delivery Method Room Air Intake Visit Reasons: follow up Intake Note: Patient presents for RA/OA follow up. Allergies No Known Allergies (No Known Allergies*) Allergy (Verified 01/11/25 07:36) Medication List - Last Reconciled 01/11/25 by Janet Madrigal MD abatacept (Orencia ClickJect) 125 mg subcut QWEEK albuterol sulfate 90 mcg/actuation (Ventolin HFA) 0 mcg inhalation albuterol sulfate mg inhalation alcohol swabs (BD Alcohol Swabs) 0 pad topical aspirin 81 mg PO DAILY atorvastatin 80 mg PO DAILY atropine 1% 1 drp ophthalmic (eye) BID blood sugar diagnostic (FreeStyle Lite Strips) As directed blood-glucose meter (FreeStyle Lite Meter kit) As directed brimonidine 0.2% 1 drp ophthalmic (eye) TID budesonide-formoterol 160-4.5 mcg/actuation (Symbicort) 2 puffs inhalation BID bupropion HCl XL 300 mg PO DAILY buspirone mg PO cholecalciferol (vitamin D3) 1,250 mcg PO QWEEK 90 days cyanocobalamin (vitamin B-12) 1,000 mcg PO DAILY docusate sodium 100 mg PO BID PRN dorzolamide-timolol 22.3-6.8 mg/mL mL ophthalmic (eye) doxepin 25 - 50 mg PO BEDTIME doxepin mg PO empagliflozin (Jardiance) 10 mg PO QAM folic acid 1 mg PO DAILY gabapentin 800 mg PO TID insulin glargine (Lantus Solostar U-100 Insulin) units subcut insulin lispro (Humalog KwikPen (U-100) Insulin) subcut lancets (FreeStyle Lancets) As directed latanoprost 0.005% 1 drp ophthalmic (eye) BEDTIME lisinopril 5 mg PO DAILY melatonin 10 mg PO BEDTIME PRN metformin 1,000 mg PO BID methotrexate sodium 20 mg (8 x 2.5 mg) PO QWEEK 90 days montelukast 10 mg PO DAILY multivitamin 1 tab PO DAILY oxycodone 1 tab PO TID PRN pen needle, diabetic (BD Ultra-Fine Mini Pen Needle) As directed polyethylene glycol 3350 (Miralax) 17 grams PO DAILY prednisolone acetate 1% 1 drp ophthalmic (eye) BID PRN prednisone 10 mg PO DAILY tizanidine 4 mg PO BID HPI Comments Details: Patient is a 54-year-old female morbidly obese with hypertension, hyperlipidemia, diabetes complicated by peripheral neuropathy, inflammatory arthritis/seronegative rheumatoid arthritis and fibromyalgia here today for follow up Interval History: Patient last seen 09/14/2024 with me - On Orencia 125mg SC every week and prednisone - She continues to do well - Has some bad days and good days - On her bad days she notes that she has overall bodyaches - Denies prolonged AM stiffness and joint swelling - Currently gets home PT - No changes made to medication Since that visit - patient had a flare while trying to taper her steroids. Very tearful in the office today stating that she tried to get in touch with the office but was met with red tape. Reviewed the phone labs with her and said that prednisone was sent however she said that that dose did not help her when she called back she informed us of that and I said yes we saw that and I increased your prednisone however patient reported that she just wanted to speak directly with a provider because she felt very isolated and alone and she felt like her PCP and her cleaner wall were not accessible and at 1 point she felt like she just did not want to be here. I asked if she had any plans of suicide and she said no she was just really sad because the summer was really bad with respect to her joints and she could not spent time with her grandchildren. She saw her primary and was given 10 mg of prednisone which has improved her symptoms somewhat. Today - On Orencia 125mg SC every week and prednisone 10mg - Worsening joint pain and swelling Rheumatologic History: Patient was diagnosed in 2017 with inflammatory arthritis. Notes not seen but this was likely based on elevated inflammatory markers and synovitis on examination. Her seronegative inflammatory arthritis is complicated by fibromyalgia and osteoarthritis of the knees. Methotrexate-04/2016- present Xeljanz 03/2020 -06/2020 - changed to Humira due to active disease Humira 06/2020- 09/2020- changed to Actemra due to active disease Actemra with methotrexate 09/2020 Change to Orencia and methotrexate July 2022 due to lack of response Current Rheumatology Medication(s): Prednisone 7.5mg (5mg in the morning and 2.5mg in the evening) Methotrexate 20 mg weekly Folic acid 1 mg daily Orencia 125mg weekly Vit D [id number] every week [facility] Medical History (Updated 06/14/24 @ 08:23 by Janet Madrigal MD) Vitamin D deficiency Family history of polymyositis Myalgia Elevated sed rate Diabetes mellitus HUSSEIN (obstructive sleep apnea) Morbid obesity Inflammatory arthritis Headache disorder History of hypothyroidism History of anemia Glaucoma Fibromyalgia Depression Degenerative disc disease Chronic pain Blind left eye Asthma Arthritis of both knees Abdominal hernia Surgical History History of hernia surgery History of section Family History Father CAD (coronary artery disease) Mother Cancer of pancreas Obesity Brother CAD (coronary artery disease) Obesity Other Family history of polymyositis Social History Household Members: None Housing: Apartment Alcohol intake: never Comment: medicated, see MAR Patient Tobacco Use Status: Never used Tobacco e-Cigarette/Vaping Use: Never Used Current occupational status: unemployed Current occupation: right handed Review of Systems Const Details: Review of Systems Constitutional: Denies fever, chills, weight loss ENT: Denies vision changes, eye pain or eye redness, dental caries, dry mouth GI: Denies nausea, vomiting, diarrhea, abdominal pain, change in BM Pulm: Denies SOB, MENDOZA, hemoptysis, wheezing Cards: Denies chest pain, palpitations Skin: Denies Raynaud's, rash, nail changes, photosensitivity, DORMITORY COUNSELOR: Denies headaches, weakness, paresthesias, recurrent falls MSK: as per HPI All other systems reviewed and are unremarkable except noted above Physical Exam Exam Exam: Vital signs reviewed Physical Examination CONSTITUITIONAL Patient alert and cooperative. Well appearing and in painful distress MSK Hands * Right Hand: Not able to make a fist. No swelling but TTP of the MCPs and PIPs. * Left Hand: Not able to make a fist. No swelling but TTP of the MCPs and PIPs. * Herbedens nodes noted bilaterally Wrists * Right Wrist: Full ROM to flexion and extension. No swelling but TTP * Left Wrist: Full ROM to flexion and extension. No swelling but TTP Elbows * Right Elbow: Full ROM. No swelling or TTP. No TTP of the medial epicondyle. No TTP of the lateral epicondyle * Left Elbow: Full ROM. No swelling or TTP. No TTP of the medial epicondyle. No TTP of the lateral epicondyle Shoulders * Right shoulder: Decreased ROM. No swelling noted. TTP of the AC joint and TTP of the subacromial bursa. No TTP of the posterior shoulder * Left shoulder: Decreased ROM. No swelling noted. TTP of the AC joint and TTP of the subacromial bursa. No TTP of the posterior shoulder Knees * Right knee: Full ROM. No swelling noted. TTP of the knee joint line. No TTP of pes anserine bursa * Left knee: Full ROM. No swelling noted. TTP of the knee joint line. No TTP of pes anserine bursa. * Crepitations felt bilaterally Ankles * Right ankle: Decreased ankle dorsiflexion and plantar flexion. Swelling with TTP of the ankle joint * Left ankle: Decreased ankle dorsiflexion and plantar flexion. Swelling with TTP of the ankle joint Feet * Right foot: Positive squeeze test * Left foot: Positive squeeze test Tender points? * No tenderness to palpation of the bilateral trapezius, supraspinatus, anterior costochondral junctions, bilateral suboccipital muscle insertions SKIN No rashes Vital Signs: Last Vital Signs Pulse 88 01/11/25 07:36 BP 115/74 01/11/25 07:36 Pulse Ox 98 01/11/25 07:36 Oxygen Delivery Method Room Air 01/11/25 07:36 Results Reviewed Results Reviewed: Laboratory Tests 06/14/24 09/14/24 08:25 08:25 WBC 6.1 RBC 4.40 Hgb 12.2 Hct 38.5 Plt Count 182 ESR 43 H Sodium 141 Potassium 3.7 Chloride 103 Carbon Dioxide 28 BUN 16 Creatinine 0.65 AST 30 ALT 26 C-Reactive Protein 0.44 1.73 H Infectious serologies 04/19/24 07:40 Hepatitis A IgM Ab Nonreactive Hep Bs Antigen Negative Hep Bs Antibody NONREACTIVE Hep B Core Total Ab Nonreactive Hepatitis C Ab (EIA) Nonreactive TB Test (T-Spot) Com Negative XR Bilateral Knees 04/19/2024 FINDINGS: Right knee: Marginal osteophyte formation and associated to articular surface sclerosis involving the lateral tibial plateau and lateral femoral condyle and to a lesser extent the medial femoral condyle. No acute cortical disruption or malalignment. No suprapatellar bursa joint effusion. No lytic or blastic lesions. Vascular calcifications. Left knee: Marginal osteophyte formation and lateral femoral condyle. Asymmetric joint space narrowing involving the medial compartment with associated sclerosis of the medial tibial plateau. No acute cortical disruption or malalignment. No lytic lesions. Questionable mixed calcific matrix abnormality in the proximal diaphysis metaphysis of the left tibia. IMPRESSION: Bicompartmental osteoarthrosis, right knee. Bicompartmental osteoarthrosis involving mostly the medial compartment, left knee. Probable small enchondroma, proximal metaphysis diaphysis left tibia. Atherosclerosis disease, peripheral XR Bilateral Hand/Wrist 04/19/2024 FINDINGS: Right hand and wrist: Three views of the right hand and wrist are submitted. Osseous mineralization is normal. There is no fracture or dislocation. There is ulnar negative variance with moderate degenerative change of the distal radioulnar joint. The remaining joint spaces are maintained. There are no erosions. The soft tissues are unremarkable. IMPRESSION: Ulnar negative variance with moderate degenerative change of the distal radioulnar joint. FINDINGS: Left Hand/Wrist: Three views of the left hand and wrist are submitted. Osseous mineralization is normal. There is no fracture or dislocation. There is ulnar negative variance and degenerative change of the distal radioulnar joint. The remaining joint spaces are maintained. There are no erosions. The soft tissues are unremarkable. IMPRESSION: Ulnar negative variance with degenerative change of the distal radioulnar joint. XR Bilateral Ankles 04/19/2024 FINDINGS: Left ankle Three views of the left ankle are submitted. Osseous mineralization is normal. There is no fracture or dislocation. There is slight widening of the medial aspect of the ankle mortise. The soft tissues are unremarkable. IMPRESSION: Slight widening of the medial aspect of the ankle mortise which may reflect ligamentous laxity or prior injury. FINDINGS: Right ankle Three views of the right ankle are submitted. Osseous mineralization is normal. There is no fracture or dislocation. The ankle mortise is maintained. There is mild degenerative change of the talonavicular joint. There is a small plantar calcaneal spur. There are vascular calcifications. IMPRESSION: Mild degenerative change of the talonavicular joint. Assessment & Plan Assessment & Plan (1) Seronegative rheumatoid arthritis: Comment: Methotrexate-04/2016- present Xeljanz 03/2020 -06/2020 - changed to Humira due to active disease Humira 06/2020- 09/2020- changed to Actemra due to active disease Actemra with methotrexate 09/2020 Change to Orencia and methotrexate July 2022 due to lack of response Restarted Humira but this was not efficacious (03/2024) Rinvoq 04/2024. Did not start Continued Orencia and this had been efficacious 06/2024: Orencia, Mtx and Pred 10mg Code(s): M06.00 - Rheumatoid arthritis without rheumatoid factor, unspecified site Category: Medical Plan: #Seronegative RA Patient is a 54y.o. female with seronegative RA here today for follow up Not able to taper prednisone on Orencia and methotrexate in fact she was in a flare while she tried to taper Currently has multiple tender and swollen joints will need to change therapies. Does not want infusions Plan - Continue Prednisone 10mg daily - Stop mtx - Start Rasuvo 25mg SC every week - Stop Orencia - Start Rinvoq 15mg daily - Continue folic acid 1mg daily - Labs today: CBC, CMP, ESR, CRP, Hepatitis panel and T spot - RTC 4 months - Labs before visit: CBC, CMP, ESR, CRP (2) Vitamin D deficiency: Code(s): E55.9 - Vitamin D deficiency, unspecified Category: Medical Plan: #Severe Vit D deficiency Patient with severe vit D deficiency. Improved Weekly Vitamin D supplementation Plan - Vitamin D 47516 U weekly PO - Check Vit D today (3) Polyarticular osteoarthritis: Code(s): M15.9 - Polyosteoarthritis, unspecified Plan: #Polyarticular OA Patient with polyarticular osteoarthritis as by her x-rays. This may be contributing to her pain. No evidence of erosions on the x-rays done in April. 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 Limit alcohol and avoid Bactrim ? Monitoring: ?CBC, BMP, LFTs every 3-4 months and hepatitis serologies as needed (5) Long-term current use of upadacitinib: Code(s): Z79.69 - tank terminal gauger (current) use of other immunomodulators and immunosuppressants Plan: #Long-term Use of AXEL inhibitors: Xeljanz (Tofacitinib)/ Rinvoq (Upadacitinib)/ Olumiant (Baricitinib) Discussed with patient the benefits and risks of AXEL inhibitors for the man agement of the rheumatic condition Benefits include reduce pain, maintenance of remission and reduction of flares Risks include thromboembolic events, skin cancer and nonmelanoma skin cancers, other forms of cancer, cardiovascular alcohol and mortality Advise patient that they are to hold the medication and for up to 1 week after a febrile illness or an open skin wound Plan I spent 45 minutes reviewing the record and labs, seeing the patient, discussing the treatment plan and documenting in the medical record ? Medications: New prednisone 10 mg PO DAILY 90 tabs 1RF M06.00 - Rheumatoid arthritis without rheumatoid factor, unspecified site upadacitinib ER (Rinvoq) 15 mg PO DAILY 30 tabs 5RF M06.00 - Rheumatoid arthritis without rheumatoid factor, unspecified site methotrexate (PF) (Rasuvo (PF)) 25 mg (0.5 mL) subcut QWEEK 2 mL 5RF M06.00 - Rheumatoid arthritis without rheumatoid factor, unspecified site cholecalciferol (vitamin D3) 125 mcg PO DAILY 90 caps 1RF E55.9 - Vitamin D deficiency, unspecified Refilled folic acid 1 mg PO DAILY 90 tabs 1RF M06.00 - Rheumatoid arthritis without rh eumatoid factor, unspecified site, Z79.899 - Other fci (current) drug therapy Discontinued cholecalciferol (vitamin D3) Discontinued Reason: Doctor's Order 1,250 mcg PO QWEEK 90 days 13 caps 1RF E55.9 - Vitamin D deficiency, unspecified methotrexate sodium Discontinued Reason: Doctor's Order 20 mg (8 x 2.5 mg) PO QWEEK 90 days 104 tabs 1RF M06.00 - Rheumatoid arthritis without rheumatoid factor, unspecified site abatacept (Orencia ClickJect) Discontinued Reason: Doctor's Order 125 mg subcut QWEEK 4 mL 5RF M06.00 - Rheumatoid arthritis without rheumatoid factor, unspecified site prednisone Take 4 tablets for 5 days then 3 tablets for 5 days then 2 tablets for 5 days then 1.5 tablets for 5 days then 1 tablet for 5 days then 0.5 tablet for 5 days switch to regular prednisone dose Discontinued Reason: Doctor's Order 10 mg PO DIRECTED 60 tabs 0RF M06.00 - Rheumatoid arthritis without rheumatoid factor, unspecified site Coding Level of Care Code Est Pt Level 5 (63480) Complex EM visit Add On G2211 Diagnoses Seronegative rheumatoid arthritis M06.00 Vitamin D deficiency E55.9 Polyarticular osteoarthritis M15.9 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
[2025-01-11 07:36] VITALS: BP 115/74; PULSE 88; O2SAT 98
== END 2025-01-11 08:43 | disposition home or self-care (01) ==
LOC: HO.RHES 07:21
PROVIDERS: PCP Internal Medicine; Visit Provider Student in an Organized Health Care Education/Training Program
DX: M06.09 Rheumatoid arthritis without rheumatoid factor, multiple sites (principal); E55.9 Vitamin D deficiency, unspecified; M15.9 Polyosteoarthritis, unspecified; Z79.899 Other long term (current) drug therapy; Z79.69 Long term (current) use of other immunomodulators and immunosuppressants
CPT/HCPCS: 99215; G2211

== ENCOUNTER → 2025-01-11 07:20 | Outpatient (BNVA) | payer MEDICARE, MEDICAID, SELFPAY | PROVIDERS: PCP Internal Medicine; Visit Provider Student in an Organized Health Care Education/Training Program | DX: M06.00 Rheumatoid arthritis without rheumatoid factor, unspecified site (principal); E55.9 Vitamin D deficiency, unspecified; Z79.899 Other long term (current) drug therapy; R15.9 Full incontinence of feces; Z79.69 Long term (current) use of other immunomodulators and immunosuppressants; E66.01 Morbid (severe) obesity due to excess calories; E11.40 Type 2 diabetes mellitus with diabetic neuropathy, unspecified; Z79.4 Long term (current) use of insulin | CPT/HCPCS: 99212 ==